=== PATIENT | female | born 1965 | race Caucasian/White ===

== ENCOUNTER 2017-02-04 16:04 | Inpatient (IN) | payer BC, OTHER ==
[~2017-02-04] VITALS: Ht 162.6 cm; Wt 85.1 kg
[~2017-02-04 16:04] MED LIST: ERRIN PO; PANT20TA2 PO
[2017-02-04] MEDS ORDERED: PIPER-TAZO 3.375 GM IV (PMX) 100 ML IVPB STA (17:39)
[2017-02-04] MEDS ORDERED: SODIUM CHLORIDE 0.9% 1L BAG IV* STA (17:39)
[2017-02-04] MEDS ORDERED: SOD CHLORIDE 0.9% 1,000 ML IV STA (17:39)
[2017-02-04] MEDS ORDERED: ONDANSETRON 4 MG INJ IV STA (17:39)
[2017-02-04] MEDS ORDERED: morphine 4 MG/ML VIAL IV STA (17:39)
[2017-02-04 18:35] LABS: WHITE BLOOD COUNT 22.9 10^3/ul (4.8-10.8)
[2017-02-04 18:36] LABS: ABNORMAL IP MESSAGE 1; HEMATOCRIT 30.4 % (37.0-47.0); HEMOGLOBIN 9.3 g/dl (12.0-16.0); MEAN CORPUSCULAR HEMOGLOBIN 22.7 pg (29.0-33.0); MEAN CORPUSCULAR HGB CONC 30.6 g/dl (32.0-37.0); MEAN CORPUSCULAR VOLUME 74.3 fl (82.0-101.0); MEAN PLATELET VOLUME 11.2 fl (7.4-10.4); PLATELET COUNT 358 10^3/UL (140-415); RED BLOOD COUNT 4.09 10^6/ul (4.20-5.40); RED CELL DISTRIBUTION WIDTH 16.4 % (11.5-14.5)
[2017-02-04 18:49] LABS: INR 1.41; PROTIME 17.3 Sec (12.2-14.2); PT RATIO 1.4
[2017-02-04 18:50] LABS: PARTIAL THROMBOPLASTIN TIME 29.9 Sec (25.0-35.0)
[2017-02-04 18:54] LABS: POSITIVE DIFF @See below
[2017-02-04 18:57] LABS: ALBUMIN 4.1 g/dl (3.3-4.9); ALBUMIN/GLOBULIN RATIO 1.17; BILIRUBIN,INDIRECT 0.5 mg/dl (0-1.1); BILIRUBIN,TOTAL 0.5 mg/dl (0.2-1.3); CALCIUM 8.5 mg/dl (8.4-10.2); CREATININE 2.38 mg/dl (0.44-1.00); TOTAL PROTEIN 7.6 g/dl (6.1-8.1)
[2017-02-04 18:59] LABS: POTASSIUM 2.9 mmol/L (3.5-5.1)
[2017-02-04] MEDS ORDERED: CYAN100 PO (19:00)
[2017-02-04] MEDS ORDERED: ASC500 PO (19:01)
[2017-02-04] MEDS ORDERED: ASCO500T25 PO (19:02)
[2017-02-04] MEDS ORDERED: CHOL400T10 PO (19:03)
[2017-02-04] MEDS ORDERED: CHOL100062 PO (19:04)
[2017-02-04] MEDS ORDERED: CHOL400C PO (19:05)
[2017-02-04] MEDS ORDERED: FAMO20TA18 PO (19:06)
[2017-02-04] MEDS ORDERED: FER325 PO (19:06)
[2017-02-04] MEDS ORDERED: AZEL137S9 NASAL (19:06)
[2017-02-04] MEDS ORDERED: LOSA25TA5 PO (19:08)
[2017-02-04] MEDS ORDERED: GUAI-227 PO (19:08)
[2017-02-04] MEDS ORDERED: HYDR50TA3 PO (19:08)
[2017-02-04] MEDS ORDERED: IBUP800T25 PO (19:09)
[2017-02-04] MEDS ORDERED: TYL500 PO (19:09)
--- NOTE | 2017-02-04 19:49 | RADRPT ---
PROCEDURE: CT abdomen and pelvis without contrast. CLINICAL INDICATION: Abdominal pain and fever status post hysterectomy TECHNIQUE: CT scan of the abdomen and pelvis without contrast was performed on a [employer] CT scanner utilizing axial imaging from the lung bases through the pubis symphysis. The patient was sc anned without intravenous contrast. Sagittal and coronal reformatted images were made. The CTDIvol is 18.07 mGy and the DLP is 1025.57 mGycm. One of the following 3 dose reduction techniques were used during this CT examination: 1) Automated exposure control 2) Adjustment of the mA +/- kV according to patient size or 3) Use of iterative reconstruction technique COMPARISON: None available FINDINGS: The lung bases are remarkable for mild subsegmental discoid atelectasis. The heart size is normal. No pericardial or pleural effusion is present. The visualized liver is of normal size and attenuation. No focal lesions are present. The patient is status post cholecystectomy changes. No evidence for intrahepatic or extrahepatic biliary ductal di latation is present. The visualized spleen is normal. The pancreas, bilateral adrenal glands, and bi lateral kidneys are normal. No evidence for hydroureteronephrosis is present. A small punctate 1-2 m m right mid pole calculus is present which is nonobstructive. The bilateral ureters are normal. The visualized bowel is nonobstructive. No evidence for diverticulosis, diverticulitis or appendicit is is present. In the anterior subcutaneous tissues of the infraumbilical region, a large air fluid collection is present with loss of the fatty tissue plane between the rectus abdominous musculature. This large air fluid collection measures 19 cm transverse by 4.6 cm AP by 6.9 cm in superior inferi or dimensions. This is concerning for an abscess, infected hematoma or seroma. Subcutaneous inflamma tion is present in the soft tissues with subcutaneous emphysematous changes and air bubbles with in the bilateral rectus abdominous musculature. The visualized aorta is normal without evidence for aneurysmal dilatation. Postsurgical changes are noted with in the pelvis compatible with status post hysterectomy changes. Mild amount of pelvic ascites and small amount of residual air is noted. A well distended urinary bl adder is present. No definite evidence for drainable peritoneal fluid collections are noted. The surrounding osseous structures are remarkable for mild degenerative changes of the imaged spine with severe degenerative endplate and disc desiccation and vacuum phenomenon at L5-S1.. IMPRESSION: 1. Large subcutaneous and rectus abdominous anterior fluid collection measuring 19 cm transverse by 4.6 cm AP by 6.9 cm in superior inferior dimensions. Differential to include abscess, infected sero ma or hematoma. 2. Status post surgical changes within the pelvis status post hysterectomy with mild residual fluid and pockets of air present. No pelvic drainable fluid collections are present. 3. Mild bibasilar subsegmental discoid atelectasis 4. Status post cholecystectomy changes 5. 1-2 mm nonobstructive right mid pole calculus 6. Degenerative changes of the imaged spine with severe changes at the L5-S1 level. A call report was made to Paco Ryan at 02/04/2017 7:47:46 PM following the completion of the exa mination by the undersigned. RPTAT: H D C .Kaylin Quinn MD, Date Time Electronically viewed and signed by .Kaylin Quinn MD, on 02/04/2017 19:48 .C/
[2017-02-04] MEDS ORDERED: HYDROmorphONE 2 MG/ML SYG IV STA (20:25)
[2017-02-04] MEDS ORDERED: VANCOMYCIN 1 GM (PMX) 250 ML IVPB SCH (20:30)
[2017-02-04] MEDS ORDERED: SOD CHLORIDE 0.9% 1,000 ML IV SCH (20:58)
[2017-02-04] MEDS ORDERED: NACL 0.9% 3 ML SYG IV SCH (21:00)
[2017-02-04 21:20] LABS: LYMPHOCYTES # 1.1 10^3/ul (0.8-2.9); MONOCYTE # 1.1 10^3/ul (0.3-0.9); MONOCYTES % (M) 5 % (0-11)
[2017-02-04] MEDS ORDERED: ACETAMINOPHEN 325 MG TAB PO PRN (21:30)
[2017-02-04] MEDS ORDERED: ONDANSETRON 4 MG INJ IV PRN (21:30)
[2017-02-04 21:51] VITALS: TEMP 101.4
[2017-02-04] MEDS: ACETAMINOPHEN 325 MG TAB PO PRN (21:52)
[2017-02-04] MEDS: FAMOTIDINE 20 MG INJ IV SCH (22:00)
[2017-02-04 22:23] VITALS: BP 98/53; RESP 20
--- NOTE | 2017-02-04 22:31 | ERD ---
ER Documentation Chief Complaint Chief Complaint s/p hysterectomy,pain uncontrolled, sts dehydrted, diarrhea, fever in trg HPI This 51-year-old female presents emergency room with increasing anterior abdominal pain. She had a hysterectomy done last Tuesday at [facility]. Today she started having increased pain and fevers. She had elected not to take narcotic pain medication home from the hospital and the pain was not responding to analgesic pain medication that she did have at home. She has been febrile as well. Did have some diarrhea and believe she is dehydrated. ROS All systems reviewed and are negative except as per history of present illness. Medications Home Meds Reported Medications Ibuprofen* (Ibuprofen*) 800 Mg Tab, 800 MG PO Q8H Y for PAIN, TAB 02/04/17 Acetaminophen* (Tylenol*) 500 Mg Tab, 1000 MG PO Q6H Y for NEEDED, TAB 02/04/17 Losartan Potassium* (Losartan Potassium*) 25 Mg Tablet, 25 MG PO BID, TAB 02/04/17 Hydrochlorothiazide* (Hydrochlorothiazide*) 50 Mg Tab, 50 MG PO DAILY, #30 TAB 02/04/17 Guaifenesin-Dextromethorphan* (Robafen* DM) 100MG/10MG/5ML Liquid, 10 ML PO DAILY Y for COUGH, ML 02/04/17 Ferrous Sulfate* (Ferrous Sulfate*) 325 Mg Tabec, 325 MG PO BID, TAB 02/04/17 Famotidine* (Famotidine*) 20 Mg Tablet, 20 MG PO BID, #60 TAB 02/04/17 Azelastine Hcl* (Azelastine Hcl*) 137 Mcg/0.137 Ml [place].pump, 2 SPRAYS NASAL BID, #1 EA TO EACH NOSTRIL 02/04/17 Ergocalciferol (Vitamin D) Unknown Strength Capsule, PO DAILY, CAP 02/04/17 Ascorbate Calcium (Calcium Ascorbate) 500 Mg Tablet, 500 MG PO DAILY, TAB 02/04/17 Cyanocobalamin* (Vitamin B12*) Unknown Strength Tab, PO DAILY, TAB 02/04/17 Discontinued Reported Medications Cholecalciferol* (Vitamin D3*) 1,000 Unit Tablet, 1000 UNIT PO DAILY, TAB 02/04/17 Cholecalciferol* (Vitamin D*) Unknown Strength Tablet, PO DAILY, TAB 02/04/17 Ascorbic Acid (Vitamin C) Unknown Strength Tab, 1 TAB PO DAILY, TAB 02/04/17 [Debbie] No Conflict Check, 0.35 MG PO DAILY 11/30/13 Pantoprazole* (Protonix*) 20 Mg Tablet.dr, 20 MG PO DAILY, TAB 11/30/13 Allergies Allergies: Coded Allergies: oxycodone (Verified Allergy, Unknown, 02/04/17) PMhx/Soc History of Surgery: Yes (CHOLECYSTECTOMY) Anesthesia Reaction: No Hx Neurological Disorder: No Hx Respiratory Disorders: No Hx Cardiac Disorders: Yes (HTN) Hx Psychiatric Problems: No Hx Miscellaneous Medical Probl: No Hx Alcohol Use: Yes (OCCASIONAL WINE) Hx Substance Use: No Hx Tobacco Use: Yes Smoking Status: Never smoker Physical Exam Vitals Vital Signs Date Time Temp Pulse Resp B/P Pulse Ox O2 Delivery O2 Flow Rate FiO2 02/04/17 21:00 98 20 92/53 98 Room Air 02/04/17 20:00 96 22 107/63 100 Room Air 02/04/17 18:00 99.4 114 24 100/64 99 Room Air 02/04/17 16:09 102.5 126 20 106/60 100 Physical Exam Const: [] Head: Atraumatic Eyes: Normal Conjunctiva ENT: Normal External Ears, Nose and Mouth. Neck: Full range of motion..~ No meningismus. Resp: Clear to auscultation bilaterally Cardio: Regular rate and rhythm, no murmurs Abd: Soft, non tender, non distended. Normal bowel sounds Skin: No petechiae or rashes Back: No midline or flank tenderness Ext: No cyanosis, or edema Neur: Awake and alert Psych: Normal Mood and Affect Result Diagram: 02/04/17 1800 02/04/17 1800 Results 24 hrs Laboratory Tests Test 02/04/17 18:00 02/04/17 18:05 02/04/17 20:50 White Blood Count 22.910^3/ul Red Blood Count 4.0910^6/ul Hemoglobin 9.3g/dl Hematocrit 30.4% Mean Corpuscular Volume 74.3fl Mean Corpuscular Hemoglobin 22.7pg Mean Corpuscular Hemoglobin Concent 30.6g/dl Red Cell Distribution Width 16.4% Platelet Count 81858^3/UL Mean Platelet Volume 11.2fl Segmented Neutrophils % (Manual) 82% Band Neutrophils % (Manual) 8% Lymphocytes % (Manual) 5% Monocytes % (Manual) 5% Nucleated Red Blood Cells % 0.0/100WBC Neutrophils # (Manual) 19.210^3/ul Band Neutrophils # 1.810^3/ul Absolute Lymphocytes (Manual) 1.110^3/ul Lymphocytes # 1.110^3/ul Monocytes # 1.110^3/ul Absolute Monocytes (Manual) 1.110^3/ul Prothrombin Time 17.3Sec Prothrombin Time Ratio 1.4 INR International Normalized Ratio 1.41 Activated Partial Thromboplast Time 29.9Sec Sodium Level 132mmol/L Potassium Level 2.9mmol/L Chloride Level 91mmol/L Carbon Dioxide Level 21mmol/L Anion Gap 23 Blood Urea Nitrogen 35mg/dl Creatinine 2.38mg/dl Glucose Level 97mg/dl Calcium Level 8.5mg/dl Total Bilirubin 0.5mg/dl Direct Bilirubin 0.00mg/dl Indirect Bilirubin 0.5mg/dl Aspartate Amino Transf (AST/SGOT) 26IU/L Alanine Aminotransferase (ALT/SGPT) 29IU/L Alkaline Phosphatase 184IU/L Total Protein 7.6g/dl Albumin 4.1g/dl Globulin 3.50g/dl Albumin/Globulin Ratio 1.17 Lipase 45U/L Lactic Acid Level 2.0mmol/L 1.0mmol/L Current Medications Medications (Trade) Dose Ordered Sig/Naresh Route PRN Reason Start Time Stop Time Status Last Admin Dose Admin Sodium Chloride (NS) 1,000 ml @ 1,000 mls/hr Q1H STAT IV 02/04/17 17:39 02/04/17 18:38 DC 02/04/17 17:40 Morphine Sulfate (morphine) 4 mg ONCE STAT IV 02/04/17 17:39 02/04/17 17:43 DC 02/04/17 17:43 Ondansetron HCl (Zofran Inj) 4 mg ONCE STAT IV 02/04/17 17:39 02/04/17 17:43 DC 02/04/17 17:41 Sodium Chloride 2530 ml 2,530 ml BOLUS OVER 2 HOURS STAT IV* 02/04/17 17:39 02/04/17 17:43 DC 02/04/17 17:39 Piperacillin Sod/ Tazobactam Sod 100 ml @ 200 mls/hr ONCE STAT IVPB 02/04/17 17:39 02/04/17 18:08 DC 02/04/17 18:00 Vancomycin HCl (Vancocin) 250 ml @ 125 mls/hr ONCE IVPB 02/04/17 20:30 02/04/17 22:29 02/04/17 21:05 Hydromorphone HCl 1 mg 1 mg ONCE STAT IV 02/04/17 20:25 02/04/17 20:29 DC 02/04/17 20:45 Sodium Chloride (NS) 1,000 ml @ 100 mls/hr Q10H IV 02/04/17 20:58 02/04/17 20:58 IV Flush (NS 3 ml) 3 ml PER PROTOCOL IV 02/04/17 21:00 Ondansetron HCl (Zofran Inj) 4 mg Q6H PRN IV NAUSEA AND/OR VOMITING 02/04/17 21:00 Acetaminophen (Tylenol Tab) 650 mg Q6H PRN PO PAIN LEVEL 1-3 OR FEVER 02/04/17 21:00 02/04/17 21:52 Morphine Sulfate (morphine) 2 mg Q4H PRN IV SEVERE PAIN LEVEL 7-10 02/04/17 21:00 Procedures/MDM Sepsis secondary to intra-abdominal postop infection and abscess. Patient was given vancomycin and Zosyn. She was given 30 cc/kg of IV fluid. She was given morphine after she felt a little bit better with the pain. Also given Zofran IV. She was then given 1 mg of Dilaudid which helped almost resolved her pain. Vital signs did improve with fluid administration and pain control. Patient does have dehydration with renal insufficiency. I spoke with Dr. Salazar, general surgeon, believes that the best course of action would be to have the abscess drained by interventional radiology. I also spoke with labor wrist on- call, Dr. Fuentes, who is going to see the patient as well. Patient is being admitted to Dr. Tessa Burk, who I did speak with about the surgical plan for IR drainage. EKG interpretation: Sinus tachycardia with no ST or T-wave changes concerning for acute ischemia. social service coordinator interpretation: Sinus tachycardia eventually transition to normal sinus rhythm. No other arrhythmias CT abdomen pelvis interpretation: Large 19 x 6 x 4 intra-abdominal fluid collection along the rectus sheath and anterior abdominal wall. Normal postop changes of hysterectomy, no bowel obstruction, no fractures. Local care time greater than 35 minutes: This includes treatment of sepsis due to postop infection, stable vital signs, careful fluid administration, early antibiotic administration, discussion with general surgeon and gynecological surgeon, review of chart, discussion with patient. This does not include any billable procedures. Departure Diagnosis: Primary Impression: Postoperative wound infection Additional Impressions: Intra-abdominal abscess Sepsis Renal failure Dehydration Condition: Serious CHANDLER CHANDLER DO Feb 04, 2017 22:31
[2017-02-04] MEDS: morphine 2 MG INJ IV PRN (22:48)
--- NOTE | 2017-02-04 22:55 | CONS ---
Date/Time of Note Date/Time of Note DATE: 02/04/17 TIME: 22:48 Assessment/Plan Assessment/Plan Chief Complaint/Hosp Course 51 y/o POD10 s/p DILLON now with 19 cm anterior abdominal wall fluid collection/ abscess -continue antibiotics -plan for IR drainage -will continue to co-follow Problems: Consultation Date/Type/Reason Admit Date/Time Feb 04, 2017 at 21:02 Date of Consultation: Feb 04, 2017 Reason for Consultation s/p DILLON Hx of Present Illness 51 y/o POD 10 s/p DILLON by Dr. Wilson and Alden Fan who presents with malaise and chills. Patient did not take her temperature at home. She was discharged home on POD3 and reports feeling worse over the last week. Reports sharp pain in superficial abdomen. Denies any incisional erythema or drainage. Per HPI. Other systems negative. Past Medical History Medical History: hypertension Past Surgical History Past Surgical Hx: cholecystectomy Family History Significant Family History: no pertinent family hx Social History Alcohol Use: none Smoking Status: Never smoker Drug Use: none Exam/Review of Systems Vital Signs Vitals Vital Signs Date Time Temp Pulse Resp B/P Pulse Ox O2 Delivery O2 Flow Rate FiO2 02/04/17 22:23 100.5 99 20 98/53 96 02/04/17 21:30 Room Air Exam Gen: NAD HEENT: NCAT CV: RRR Pulm: CTAB Abd: soft, NT I-C/D/I Back: no CVAT Ext: NT Results Result Diagram: 02/04/17 1800 02/04/17 1800 Results 24 hrs Laboratory Tests Test 02/04/17 18:00 02/04/17 18:05 02/04/17 20:50 White Blood Count 22.9 H Red Blood Count 4.09 L Hemoglobin 9.3 L Hematocrit 30.4 L Mean Corpuscular Volume 74.3 L Mean Corpuscular Hemoglobin 22.7 L Mean Corpuscular Hemoglobin Concent 30.6 L Red Cell Distribution Width 16.4 H Platelet Count 358 Mean Platelet Volume 11.2 H Segmented Neutrophils % (Manual) 82 H Band Neutrophils % (Manual) 8 H Lymphocytes % (Manual) 5 L Monocytes % (Manual) 5 Nucleated Red Blood Cells % 0.0 Neutrophils # (Manual) 19.2 H Band Neutrophils # 1.8 H Absolute Lymphocytes (Manual) 1.1 Lymphocytes # 1.1 Monocytes # 1.1 H Absolute Monocytes (Manual) 1.1 H Prothrombin Time 17.3 H Prothrombin Time Ratio 1.4 INR International Normalized Ratio 1.41 Activated Partial Thromboplast Time 29.9 Sodium Level 132 L Potassium Level 2.9 *L Chloride Level 91 L Carbon Dioxide Level 21 Anion Gap 23 H Blood Urea Nitrogen 35 H Creatinine 2.38 H Glucose Level 97 Calcium Level 8.5 Total Bilirubin 0.5 Direct Bilirubin 0.00 Indirect Bilirubin 0.5 Aspartate Amino Transf (AST/SGOT) 26 Alanine Aminotransferase (ALT/SGPT) 29 Alkaline Phosphatase 184 H Total Protein 7.6 Albumin 4.1 Globulin 3.50 H Albumin/Globulin Ratio 1.17 Lipase 45 Lactic Acid Level 2.0 1.0 Medications Medications Current Medications Sodium Chloride (NS) 1,000 ml @ 100 mls/hr Q10H IV Last administered on 20:58; Admin Dose 100 MLS/HR; Start 02/04/17 at 20:58 Ondansetron HCl (Zofran Inj) 4 mg Q6H PRN IV NAUSEA AND/OR VOMITING; Start at 21:00 Acetaminophen (Tylenol Tab) 650 mg Q6H PRN PO PAIN LEVEL 1-3 OR FEVER Last administered on 02/04/17 21:52; Admin Dose 650 MG; Start 02/04/17 at 21:00 Morphine Sulfate (morphine) 2 mg Q4H PRN IV SEVERE PAIN LEVEL 7-10; Start at 21:00 Famotidine (Pepcid Iv) 20 mg DAILY IV Last administered on 02/04/17 22:00; Admin Dose 20 MG; Start 02/04/17 at 21:30 Enoxaparin Sodium 30 mg 30 mg DAILY SC ; Start 02/05/17 at 09:00 Piperacillin Sod/ Tazobactam Sod (Zosyn 3.375gm/ 100 ml (Pmx)) 100 ml @ 200 mls /hr Q6 IVPB ; Start 02/05/17 at 00:00 VJ OLSON Feb 04, 2017 22:55
[2017-02-04 22:57] VITALS: Ht 162.6 cm; Wt 85.1 kg
[2017-02-04 23:10] LABS: ADD UMIC YES; UR ASCORBIC ACID NEGATIVE (NEGATIVE); UR BILIRUBIN (Dip) NEGATIVE (NEGATIVE); UR BLOOD (Dip) 1+ mg/dL (NEGATIVE); UR CLARITY CLEAR (CLEAR); UR COLOR YELLOW (YELLOW); UR GLUCOSE (Dip) 3+ mg/dL (NEGATIVE); UR KETONES (Dip) NEGATIVE (NEGATIVE); UR LEUKOCYTE ESTERASE (Dip) NEGATIVE Leu/ul (NEGATIVE); UR NITRITE (Dip) NEGATIVE (NEGATIVE); UR RBC 1 /HPF (0-5); UR TOTAL PROTEIN (Dip) NEGATIVE (NEGATIVE); UR UROBILINOGEN (Dip) NEGATIVE (NEGATIVE)
[2017-02-04] MEDS: PIPER-TAZO 3.375 GM IV (PMX) 100 ML IVPB SCH (23:49)
[2017-02-05] VITALS (53 sets, daily range): BP systolic 68–116; BP diastolic 42–86; PULSE 68–98; RESP 14–26
[2017-02-05] MEDS ORDERED: SOD CHLORIDE 0.9% 1,000 ML IV ONE ×2 (05:00→10:00)
[2017-02-05 05:13] LABS: BASOPHIL # 0.1 10^3/ul (0.0-0.1); BASOPHILS % 0.3 % (0.0-2.0); EOSINOPHILS % 0.1 % (0.0-7.0); HEMATOCRIT 25.5 % (37.0-47.0); HEMOGLOBIN 7.7 g/dl (12.0-16.0); LYMPHOCYTES # 0.8 10^3/ul (0.8-2.9); LYMPHOCYTES % 4.1 % (15.0-51.0); MEAN CORPUSCULAR HEMOGLOBIN 23.3 pg (29.0-33.0); MEAN CORPUSCULAR HGB CONC 30.2 g/dl (32.0-37.0); MEAN PLATELET VOLUME 11.2 fl (7.4-10.4); MONOCYTE # 1.4 10^3/ul (0.3-0.9); MONOCYTES % 6.6 % (0.0-11.0); NEUTROPHILS % 87.4 % (39.0-77.0); PLATELET COUNT 278 10^3/UL (140-415); RED BLOOD COUNT 3.31 10^6/ul (4.20-5.40); RED CELL DISTRIBUTION WIDTH 16.5 % (11.5-14.5); WHITE BLOOD COUNT 20.6 10^3/ul (4.8-10.8)
[2017-02-05 05:32] LABS: POSITIVE DIFF @See below
[2017-02-05 05:51] LABS: ALBUMIN 2.4 g/dl (3.3-4.9); ALBUMIN/GLOBULIN RATIO 0.72; BILIRUBIN,INDIRECT 0.3 mg/dl (0-1.1); BILIRUBIN,TOTAL 0.3 mg/dl (0.2-1.3); CALCIUM 7.2 mg/dl (8.4-10.2); CREATININE 1.8 mg/dl (0.44-1.00); TOTAL PROTEIN 5.7 g/dl (6.1-8.1)
[2017-02-05] MEDS: PIPER-TAZO 3.375 GM IV (PMX) 100 ML IVPB SCH ×4 (05:58→23:06)
[2017-02-05 06:03] LABS: POTASSIUM 2.7 mmol/L (3.5-5.1)
[2017-02-05] MEDS ORDERED: morphine 4 MG/ML VIAL IV STA (08:05)
--- NOTE | 2017-02-05 08:22 | CONS ---
Date/Time of Note Date/Time of Note DATE: 02/05/17 TIME: 08:19 Assessment/Plan Assessment/Plan Additional Assessment/Plan Hospital day 1 for wound infection status post abdominal hysterectomy Cultures Antibiotics The daily dressing changes daily Consultation Date/Type/Reason Admit Date/Time Feb 04, 2017 at 21:02 Date of Consultation: Feb 05, 2017 Hx of Present Illness The patient is a 31-year-old female who underwent a total abdominal hysterectomy Via Pfannenstiel incision approximately 2 weeks ago. She was hospitalized 4 days at [facility]. Upon discharge, she started having increasing abdominal pain, hypotension and fevers. She finally presented to the ER last night where there was a large fluid collection noted in her abdomen. Overnight, she began draining purulent fluid through her incision. Past Medical History Medical History: hypertension Past Surgical History Past Surgical Hx: cholecystectomy, other (Total abdominal hysterectomy for fibroids) Family History Significant Family History: no pertinent family hx Social History Alcohol Use: none Smoking Status: Never smoker Drug Use: none Exam/Review of Systems Vital Signs Vitals Vital Signs Date Time Temp Pulse Resp B/P Pulse Ox O2 Delivery O2 Flow Rate FiO2 02/05/17 08:14 98.0 79 18 90/55 93 02/05/17 02:48 Nasal Cannula 2.0 Intake and Output 02/04/17 02/04/17 02/05/17 15:00 23:00 07:00 Intake Total 100 ml 2350 ml Balance 100 ml 2350 ml Exam Constitutional: alert, well developed ENMT: nl external ears & nose Neck: supple Respiratory: clear to auscultation Cardiovascular: regular rate and rhythm Gastrointestinal: soft Extremities: normal pulses Neurological: MORNING SHOW [employer] II-XII intact Skin: nl turgor (Wound, the left lateral aspect of the Pfannenstiel incision is draining purulent fluid, this was further opened by me and packed with Kerlix gauze) Results Result Diagram: 02/05/17 0447 02/05/17 0447 Results 24 hrs Laboratory Tests Test 02/04/17 18:00 02/04/17 18:05 02/04/17 20:50 02/04/17 22:50 White Blood Count 22.9 H Red Blood Count 4.09 L Hemoglobin 9.3 L Hematocrit 30.4 L Mean Corpuscular Volume 74.3 L Mean Corpuscular Hemoglobin 22.7 L Mean Corpuscular Hemoglobin Concent 30.6 L Red Cell Distribution Width 16.4 H Platelet Count 358 Mean Platelet Volume 11.2 H Segmented Neutrophils % (Manual) 82 H Band Neutrophils % (Manual) 8 H Lymphocytes % (Manual) 5 L Monocytes % (Manual) 5 Nucleated Red Blood Cells % 0.0 Neutrophils # (Manual) 19.2 H Band Neutrophils # 1.8 H Absolute Lymphocytes (Manual) 1.1 Lymphocytes # 1.1 Monocytes # 1.1 H Absolute Monocytes (Manual) 1.1 H Prothrombin Time 17.3 H Prothrombin Time Ratio 1.4 INR International Normalized Ratio 1.41 Activated Partial Thromboplast Time 29.9 Sodium Level 132 L Potassium Level 2.9 *L Chloride Level 91 L Carbon Dioxide Level 21 Anion Gap 23 H Blood Urea Nitrogen 35 H Creatinine 2.38 H Glucose Level 97 Calcium Level 8.5 Total Bilirubin 0.5 Direct Bilirubin 0.00 Indirect Bilirubin 0.5 Aspartate Amino Transf (AST/SGOT) 26 Alanine Aminotransferase (ALT/SGPT) 29 Alkaline Phosphatase 184 H Total Protein 7.6 Albumin 4.1 Globulin 3.50 H Albumin/Globulin Ratio 1.17 Lipase 45 Lactic Acid Level 2.0 1.0 Urine Color YELLOW Urine Clarity CLEAR Urine pH 6.0 Urine Specific [place]andon 1.020 Urine Ketones NEGATIVE Urine Nitrite NEGATIVE Urine Bilirubin NEGATIVE Urine Urobilinogen NEGATIVE Urine Leukocyte Esterase NEGATIVE Urine Microscopic RBC 1 Urine Microscopic WBC 1 Urine Hemoglobin 1+ H Urine Glucose 3+ H Urine Total Protein NEGATIVE Test 02/04/17 23:57 02/05/17 04:47 Lactic Acid Level 1.0 White Blood Count 20.6 H Red Blood Count 3.31 L Hemoglobin 7.7 L Hematocrit 25.5 L Mean Corpuscular Volume 77.0 L Mean Corpuscular Hemoglobin 23.3 L Mean Corpuscular Hemoglobin Concent 30.2 L Red Cell Distribution Width 16.5 H Platelet Count 278 # Mean Platelet Volume 11.2 H Neutrophils % 87.4 H Lymphocytes % 4.1 L Monocytes % 6.6 Eosinophils % 0.1 Basophils % 0.3 Nucleated Red Blood Cells % 0.0 Neutrophils # 18.0 H Lymphocytes # 0.8 Monocytes # 1.4 H Eosinophils # 0.0 Basophils # 0.1 Nucleated Red Blood Cells # 0.0 Sodium Level 135 Potassium Level 2.7 *L Chloride Level 104 # Carbon Dioxide Level 20 L Anion Gap 14 # Blood Urea Nitrogen 32 H Creatinine 1.80 H Glucose Level 84 Calcium Level 7.2 L Total Bilirubin 0.3 Direct Bilirubin 0.00 Indirect Bilirubin 0.3 Aspartate Amino Transf (AST/SGOT) 20 Alanine Aminotransferase (ALT/SGPT) 34 Alkaline Phosphatase 126 H Total Protein 5.7 #L Albumin 2.4 #L Globulin 3.30 H Albumin/Globulin Ratio 0.72 Medications Medications Current Medications Sodium Chloride (NS) 1,000 ml @ 100 mls/hr Q10H IV Last administered on 20:58; Admin Dose 100 MLS/HR; Start 02/04/17 at 20:58 Ondansetron HCl (Zofran Inj) 4 mg Q6H PRN IV NAUSEA AND/OR VOMITING; Start at 21:00 Acetaminophen (Tylenol Tab) 650 mg Q6H PRN PO PAIN LEVEL 1-3 OR FEVER Last administered on 02/04/17 21:52; Admin Dose 650 MG; Start 02/04/17 at 21:00 Morphine Sulfate (morphine) 2 mg Q4H PRN IV SEVERE PAIN LEVEL 7-10 Last administered on 02/04/17 22:48; Admin Dose 2 MG; Start 02/04/17 at 21:00 Famotidine (Pepcid Iv) 20 mg DAILY IV Last administered on 02/04/17 22:00; Admin Dose 20 MG; Start 02/04/17 at 21:30 Enoxaparin Sodium 30 mg 30 mg DAILY SC ; Start 02/05/17 at 09:00 Piperacillin Sod/ Tazobactam Sod (Zosyn 3.375gm/ 100 ml (Pmx)) 100 ml @ 200 mls /hr Q6 IVPB Last administered on 02/05/17 05:58; Admin Dose 200 MLS/HR; Start 02/05/17 at 00:00 JOVANNA PETERS MD Feb 05, 2017 08:22
[2017-02-05] MEDS: SODIUM CHLORIDE IV SCH ×4 (08:41→18:22)
[2017-02-05] MEDS: POTASSIUM CHLORIDE IV SCH ×4 (08:41→18:22)
[2017-02-05] MEDS: FAMOTIDINE 20 MG INJ IV SCH (08:48)
[2017-02-05] MEDS: ENOXAPARIN 30 MG/0.3 ML SYG SC SCH (09:01)
[2017-02-05] MEDS: morphine 2 MG INJ IV PRN ×3 (10:40→22:25)
--- NOTE | 2017-02-05 10:47 | HP ---
Date/Time of Note Date/Time of Note DATE: 02/05/17 TIME: 10:45 Assessment/Plan VTE Prophylaxis VTE Prophylaxis Intervention: other Lines/Catheters IV Catheter Type (from Nrs): Saline Lock Assessment/Plan Chief Complaint/Hosp Course 1) peritonitis - IV antibiotics - I&D per surgery - monitor clinically 2) hypertension - blood pressure is low currently Problems: HPI/ROS Admit Date/Time Admit Date/Time Feb 04, 2017 at 21:02 Hx of Present Illness Patient with hypertension comes in after recent hysterectomy with abdominal pain related to postoperative infection. Patient was hypotensive and required drainage per surgery of the wound. PMH/Family/Social Past Medical History Medical History: hypertension Past Surgical History Past Surgical Hx: cholecystectomy, other (Total abdominal hysterectomy for fibroids) Social History Alcohol Use: none Smoking Status: Never smoker Drug Use: none Exam/Review of Systems Vital Signs Vitals Vital Signs Date Time Temp Pulse Resp B/P Pulse Ox O2 Delivery O2 Flow Rate FiO2 02/05/17 08:30 98.0 88 18 106/61 02/05/17 08:14 93 02/05/17 02:48 Nasal Cannula 2.0 Intake and Output 02/04/17 02/04/17 02/05/17 15:00 23:00 07:00 Intake Total 100 ml 2350 ml Balance 100 ml 2350 ml Exam Constitutional: well developed Head: atraumatic, normocephalic Neck: supple Respiratory: clear to auscultation Cardiovascular: regular rate and rhythm Gastrointestinal: soft, tender Extremities: normal pulses Labs Result Diagram: 02/05/177 02/05/17446 Medications Medications Current Medications Ondansetron HCl (Zofran Inj) 4 mg Q6H PRN IV NAUSEA AND/OR VOMITING; Start at 21:00 Acetaminophen (Tylenol Tab) 650 mg Q6H PRN PO PAIN LEVEL 1-3 OR FEVER Last administered on 02/04/17 21:52; Admin Dose 650 MG; Start 02/04/17 at 21:00 Morphine Sulfate (morphine) 2 mg Q4H PRN IV SEVERE PAIN LEVEL 7-10 Last administered on 02/05/17 10:40; Admin Dose 2 MG; Start 02/04/17 at 21:00 Famotidine (Pepcid Iv) 20 mg DAILY IV Last administered on 02/05/17 08:48; Admin Dose 20 MG; Start 02/04/17 at 21:30 Enoxaparin Sodium 30 mg 30 mg DAILY SC Last administered on 02/05/17 09:01; Admin Dose 30 MG; Start 02/05/17 at 09:00 Piperacillin Sod/ Tazobactam Sod 100 ml @ 200 mls/hr Q6 IVPB Last administered on 02/05/17 05:58; Admin Dose 200 MLS/HR; Start 02/05/17 at 00: 00 Potassium Chloride 40 meq/ Sodium Chloride 1,020 ml @ 100 mls/hr [id number] IV Last administered on 02/05/17 08:41; Admin Dose 100 MLS/HR; Start 02/05/17 at 08:30 Sodium Chloride (NS) 1,000 ml @ 1,000 mls/hr Q1H ONCE IV ; Start 02/05/17 at 10:00; Stop 02/05/17 at 10:59 ELIAZAR LAU Feb 05, 2017 10:47
[2017-02-05 14:23] LABS: HEMATOCRIT 25.4 % (37.0-47.0); HEMOGLOBIN 7.8 g/dl (12.0-16.0)
[2017-02-05] MEDS ORDERED: DOBUTamine/D5W 1 MG/ML DRIP 250 ML IV SCH (16:00)
[2017-02-05] MEDS ORDERED: POTASSIUM CHLORIDE 250 ML IVPB ONE (17:00)
--- NOTE | 2017-02-05 19:26 | CONS ---
Date/Time of Note Date/Time of Note DATE: 02/05/17 TIME: 19:24 Assessment/Plan Assessment/Plan Additional Assessment/Plan HD#2 for 51yo 2wks s/p DILLON with 19cm anterior wall fluid collection c/w abscess s/p spontaneous drainage and suction -WBC trending downwards and pt afebrile -Anemia noted yet stable. Possibly dilutional effect given plts also have trended downwards. Will defer to primary team regarding transfusion needs -Continue IV abx and wound changes per primary team -ENROLLMENT MANAGER to continue to follow Consultation Date/Type/Reason Admit Date/Time Feb 04, 2017 at 21:02 Initial Consult Date 02/05/17 Type of Consultation: Gynecology 24 HR Interval Summary Free Text/Dictation Pt states pain and pressure have improved somewhat s/p leakage of fluid collection although also still c/o stabbing pain in RLQ which is the same pain which brought pt in to ED yesterday. Denies dizziness or palpitations. +Flatus. Voiding w/o difficulty. Exam/Review of Systems Vital Signs Vitals Vital Signs Date Time Temp Pulse Resp B/P Pulse Ox O2 Delivery O2 Flow Rate FiO2 02/05/17 16:45 92 18 109/57 94 Nasal Cannula 2.0 02/05/17 16:30 98.1 Intake and Output 02/04/17 02/04/17 02/05/17 15:00 23:00 07:00 Intake Total 100 ml 2350 ml Balance 100 ml 2350 ml Exam Gen: sitting up in bed comfortably, although pretty still CV: RRR, nl s1s2 Resp: CTAB Abd: soft, obese, NABS Inc: covered w/dressing. no leakage noted Ext: SCDs in place b/l WBC 22.9 (02/04) -> 20.9 (02/05) Hgb 9.3 (02/04) -> 7.7 (02/05 at 0447)-> 7.8 (02/05 at 1355) Plts 358 (02/04) -> 278 (02/05) Results Result Diagram: 02/05/17 1355 02/05/17 1355 Results 24 hrs Laboratory Tests Test 02/04/17 20:50 02/04/17 22:50 02/04/17 23:57 02/05/17 04:47 Lactic Acid Level 1.0 1.0 Urine Color YELLOW Urine Clarity CLEAR Urine pH 6.0 Urine Specific [place] 1.020 Urine Ketones NEGATIVE Urine Nitrite NEGATIVE Urine Bilirubin NEGATIVE Urine Urobilinogen NEGATIVE Urine Leukocyte Esterase NEGATIVE Urine Microscopic RBC 1 Urine Microscopic WBC 1 Urine Hemoglobin 1+ H Urine Glucose 3+ H Urine Total Protein NEGATIVE White Blood Count 20.6 H Red Blood Count 3.31 L Hemoglobin 7.7 L Hematocrit 25.5 L Mean Corpuscular Volume 77.0 L Mean Corpuscular Hemoglobin 23.3 L Mean Corpuscular Hemoglobin Concent 30.2 L Red Cell Distribution Width 16.5 H Platelet Count 278 # Mean Platelet Volume 11.2 H Neutrophils % 87.4 H Lymphocytes % 4.1 L Monocytes % 6.6 Eosinophils % 0.1 Basophils % 0.3 Nucleated Red Blood Cells % 0.0 Neutrophils # 18.0 H Lymphocytes # 0.8 Monocytes # 1.4 H Eosinophils # 0.0 Basophils # 0.1 Nucleated Red Blood Cells # 0.0 Sodium Level 135 Potassium Level 2.7 *L Chloride Level 104 # Carbon Dioxide Level 20 L Anion Gap 14 # Blood Urea Nitrogen 32 H Creatinine 1.80 H Glucose Level 84 Calcium Level 7.2 L Total Bilirubin 0.3 Direct Bilirubin 0.00 Indirect Bilirubin 0.3 Aspartate Amino Transf (AST/SGOT) 20 Alanine Aminotransferase (ALT/SGPT) 34 Alkaline Phosphatase 126 H Total Protein 5.7 #L Albumin 2.4 #L Globulin 3.30 H Albumin/Globulin Ratio 0.72 Test 02/05/17 13:55 Hemoglobin 7.8 L Hematocrit 25.4 L Potassium Level 3.1 L Medications Medications Current Medications Ondansetron HCl (Zofran Inj) 4 mg Q6H PRN IV NAUSEA AND/OR VOMITING; Start at 21:00 Acetaminophen (Tylenol Tab) 650 mg Q6H PRN PO PAIN LEVEL 1-3 OR FEVER Last administered on 02/04/17 21:52; Admin Dose 650 MG; Start 02/04/17 at 21:00 Morphine Sulfate (morphine) 2 mg Q4H PRN IV SEVERE PAIN LEVEL 7-10 Last administered on 02/05/17 15:11; Admin Dose 2 MG; Start 02/04/17 at 21:00 Famotidine (Pepcid Iv) 20 mg DAILY IV Last administered on 02/05/17 08:48; Admin Dose 20 MG; Start 02/04/17 at 21:30 Enoxaparin Sodium 30 mg 30 mg DAILY SC Last administered on 02/05/17 09:01; Admin Dose 30 MG; Start 02/05/17 at 09:00 Piperacillin Sod/ Tazobactam Sod 100 ml @ 200 mls/hr Q6 IVPB Last administered on 02/05/17 18:22; Admin Dose 200 MLS/HR; Start 02/05/17 at 00: 00 Potassium Chloride 40 meq/ Sodium Chloride 1,020 ml @ 100 mls/hr [id number] IV Last administered on 02/05/17 08:41; Admin Dose 100 MLS/HR; Start 02/05/17 at 08:30 Dobutamine HCl/ Dextrose 250 ml @ 12.765 mls/ hr TITRATE IV Last administered on 02/05/17 16:22; Admin Dose 12.765 MLS/HR; Start 02/05/17 at 16:00 Potassium Chloride (KCl 40 MEQ/250 ML NS) 250 ml @ 62.5 mls/hr ONCE ONCE IVPB Last administered on 02/05/17 18:22; Admin Dose 62.5 MLS/HR; Start at 17:00; Stop 02/05/17 at 20:59 EDUARDO BHATIA MD Feb 05, 2017 19:26
[2017-02-05] MEDS: ONDANSETRON 4 MG INJ IV PRN (23:05)
[2017-02-06] VITALS (36 sets, daily range): BP systolic 82–133; BP diastolic 50–77; PULSE 69–91; RESP 12–23
[2017-02-06] MEDS: PIPER-TAZO 3.375 GM IV (PMX) 100 ML IVPB SCH ×3 (05:34→17:54)
[2017-02-06] MEDS: ONDANSETRON 4 MG INJ IV PRN ×2 (05:34→14:21)
[2017-02-06] MEDS: POTASSIUM CHLORIDE IV SCH ×4 (05:34→19:34)
[2017-02-06] MEDS: SODIUM CHLORIDE IV SCH ×4 (05:34→19:34)
[2017-02-06] MEDS: morphine 2 MG INJ IV PRN ×3 (05:35→21:46)
[2017-02-06 08:12] LABS: ABNORMAL IP MESSAGE 1; BASOPHIL # 0.1 10^3/ul (0.0-0.1); BASOPHILS % 0.5 % (0.0-2.0); EOSINOPHILS # 0.1 10^3/ul (0.0-0.5); EOSINOPHILS % 0.8 % (0.0-7.0); HEMOGLOBIN 7.3 g/dl (12.0-16.0); LYMPHOCYTES # 1.4 10^3/ul (0.8-2.9); LYMPHOCYTES % 8.9 % (15.0-51.0); MEAN CORPUSCULAR HEMOGLOBIN 23.2 pg (29.0-33.0); MEAN CORPUSCULAR HGB CONC 30.4 g/dl (32.0-37.0); MEAN CORPUSCULAR VOLUME 76.4 fl (82.0-101.0); MEAN PLATELET VOLUME 11.3 fl (7.4-10.4); MONOCYTE # 0.8 10^3/ul (0.3-0.9); MONOCYTES % 5.1 % (0.0-11.0); NEUTROPHIL # 12.2 10^3/ul (1.6-7.5); NEUTROPHILS % 79.1 % (39.0-77.0); PLATELET COUNT 293 10^3/UL (140-415); RED BLOOD COUNT 3.14 10^6/ul (4.20-5.40); RED CELL DISTRIBUTION WIDTH 17.1 % (11.5-14.5); WHITE BLOOD COUNT 15.4 10^3/ul (4.8-10.8)
[2017-02-06 08:16] LABS: POSITIVE DIFF @See below
[2017-02-06 08:35] LABS: CALCIUM 7.4 mg/dl (8.4-10.2); CREATININE 0.93 mg/dl (0.44-1.00); POTASSIUM 3.5 mmol/L (3.5-5.1)
[2017-02-06] MEDS: FAMOTIDINE 20 MG INJ IV SCH (09:17)
[2017-02-06] MEDS: ENOXAPARIN 30 MG/0.3 ML SYG SC SCH (09:19)
--- NOTE | 2017-02-06 10:12 | PN ---
Date/Time of Note Date/Time of Note DATE: 02/06/17 TIME: 10:12 Assessment/Plan VTE Prophylaxis VTE Prophylaxis Intervention: other Lines/Catheters [facility] Saline Lock Urinary Cath still in place: No Assessment/Plan Chief Complaint/Hosp Course 1) peritonitis - IV antibiotics - I&D per surgery - monitor clinically 2) hypertension - blood pressure is low currently Problems: Subjective 24 Hr Interval Summary Free Text/Dictation Feel better today, off vasopressors Exam/Review of Systems Vital Signs Vitals Vital Signs Date Time Temp Pulse Resp B/P Pulse Ox O2 Delivery O2 Flow Rate FiO2 02/06/17 09:30 73 16 106/65 96 02/06/17 09:00 Room Air 02/06/17 08:00 98.0 02/05/17 16:45 2.0 Intake and Output 02/05/17 02/05/17 02/06/17 15:00 23:00 07:00 Intake Total 1970 ml 1575.0 ml 540 ml Output Total 560 ml 720 ml 500 ml Balance 1410 ml 855.0 ml 40 ml Exam Constitutional: well developed Head: atraumatic, normocephalic Neck: supple Respiratory: diminished breath sounds Cardiovascular: regular rate and rhythm Gastrointestinal: non-tender, soft Extremities: normal pulses Results Result Diagram: 02/06/17 0800 02/06/17 0800 Results 24 hrs Laboratory Tests Test 02/05/17 13:55 02/06/17 08:00 Hemoglobin 7.8 L 7.3 L Hematocrit 25.4 L 24.0 L Potassium Level 3.1 L 3.5 White Blood Count 15.4 #H Red Blood Count 3.14 L Mean Corpuscular Volume 76.4 L Mean Corpuscular Hemoglobin 23.2 L Mean Corpuscular Hemoglobin Concent 30.4 L Red Cell Distribution Width 17.1 H Platelet Count 293 Mean Platelet Volume 11.3 H Neutrophils % 79.1 H Lymphocytes % 8.9 L Monocytes % 5.1 Eosinophils % 0.8 Basophils % 0.5 Nucleated Red Blood Cells % 0.0 Neutrophils # 12.2 H Lymphocytes # 1.4 Monocytes # 0.8 Eosinophils # 0.1 Basophils # 0.1 Nucleated Red Blood Cells # 0.0 Sodium Level 141 Chloride Level 111 H Carbon Dioxide Level 19 L Anion Gap 15 Blood Urea Nitrogen 18 # Creatinine 0.93 Glucose Level 85 Calcium Level 7.4 L Medications Medications Current Medications Ondansetron HCl (Zofran Inj) 4 mg Q6H PRN IV NAUSEA AND/OR VOMITING Last administered on 02/06/17 05:34; Admin Dose 4 MG; Start 02/04/17 at 21:00 Acetaminophen (Tylenol Tab) 650 mg Q6H PRN PO PAIN LEVEL 1-3 OR FEVER Last administered on 02/04/17 21:52; Admin Dose 650 MG; Start 02/04/17 at 21:00 Morphine Sulfate (morphine) 2 mg Q4H PRN IV SEVERE PAIN LEVEL 7-10 Last administered on 02/06/17 05:35; Admin Dose 2 MG; Start 02/04/17 at 21:00 Famotidine (Pepcid Iv) 20 mg DAILY IV Last administered on 02/06/17 09:17; Admin Dose 20 MG; Start 02/04/17 at 21:30 Enoxaparin Sodium 30 mg 30 mg DAILY SC Last administered on 02/06/17 09:19; Admin Dose 30 MG; Start 02/05/17 at 09:00 Piperacillin Sod/ Tazobactam Sod 100 ml @ 200 mls/hr Q6 IVPB Last administered on 02/06/17 05:34; Admin Dose 200 MLS/HR; Start 02/05/17 at 00: 00 Potassium Chloride 40 meq/ Sodium Chloride 1,020 ml @ 100 mls/hr [id number] IV Last administered on 02/06/17 05:34; Admin Dose 100 MLS/HR; Start 02/05/17 at 08:30 Dobutamine HCl/ Dextrose 250 ml @ 12.765 mls/ hr TITRATE IV Last administered on 02/05/17 16:22; Admin Dose 12.765 MLS/HR; Start 02/05/17 at 16:00 ELIAZAR LAU Feb 06, 2017 10:12
[2017-02-06] MEDS ORDERED: POTASSIUM CHLORIDE 20 MEQ POWDER FOR ORAL SOLN PO ONE (13:30)
--- NOTE | 2017-02-06 13:49 | PN ---
Date/Time of Note Date/Time of Note DATE: 02/06/17 TIME: 13:47 Assessment/Plan Lines/Catheters IV Catheter Type (from Nrsg): Saline Lock Clifford in Place (from Nrsg): No Assessment/Plan Assessment/Plan Hospital day 1 for wound infection WBC down, afebrile, and normotensive Improving Continue current care but recommend wound VAC Follow-up with me or [facility] surgeon in 1-2 weeks upon discharge Subjective 24 Hr Interval Summary Constitutional: no complaints, other (Feels much better) Additional Comments Feeling much better Exam/Review of Systems Vital Signs Vitals Vital Signs Date Time Temp Pulse Resp B/P Pulse Ox O2 Delivery O2 Flow Rate FiO2 02/06/17 09:30 73 16 106/65 96 02/06/17 09:00 Room Air 02/06/17 08:00 98.0 02/05/17 16:45 2.0 Intake and Output 02/05/17 02/05/17 02/06/17 15:00 23:00 07:00 Intake Total 1970 ml 1575.0 ml 540 ml Output Total 560 ml 720 ml 500 ml Balance 1410 ml 855.0 ml 40 ml Exam Constitutional: alert, oriented, well developed Respiratory: clear to auscultation Cardiovascular: regular rate and rhythm Gastrointestinal: other (Decreased drainage and erythema to wound), soft Results Result Diagram: 02/06/1779902/06/17799 JOVANNA PETERS MD Feb 06, 2017 13:49
--- NOTE | 2017-02-06 18:23 | CONS ---
Date/Time of Note Date/Time of Note DATE: 02/06/17 TIME: 18:22 Assessment/Plan Assessment/Plan Chief Complaint/Hosp Course wound abcess Problems: Additional Assessment/Plan s/p spontaneous wound drainage- on bid dressing changes for wound vac will follow Consultation Date/Type/Reason Admit Date/Time Feb 04, 2017 at 21:02 Initial Consult Date 02/05/17 Type of Consultation: Gynecology Reason for Consultation wound abcess Exam/Review of Systems Vital Signs Vitals Vital Signs Date Time Temp Pulse Resp B/P Pulse Ox O2 Delivery O2 Flow Rate FiO2 02/06/17 17:00 76 19 82/70 98 Room Air 02/06/17 16:00 98.0 02/05/17 16:45 2.0 Intake and Output 02/05/17 02/05/17 02/06/17 15:00 23:00 07:00 Intake Total 1970 ml 1575.0 ml 540 ml Output Total 560 ml 720 ml 500 ml Balance 1410 ml 855.0 ml 40 ml Results Result Diagram: 02/06/17 0800 02/06/17 0800 Results 24 hrs Laboratory Tests Test 02/06/17 08:00 White Blood Count 15.4 #H Red Blood Count 3.14 L Hemoglobin 7.3 L Hematocrit 24.0 L Mean Corpuscular Volume 76.4 L Mean Corpuscular Hemoglobin 23.2 L Mean Corpuscular Hemoglobin Concent 30.4 L Red Cell Distribution Width 17.1 H Platelet Count 293 Mean Platelet Volume 11.3 H Neutrophils % 79.1 H Lymphocytes % 8.9 L Monocytes % 5.1 Eosinophils % 0.8 Basophils % 0.5 Nucleated Red Blood Cells % 0.0 Neutrophils # 12.2 H Lymphocytes # 1.4 Monocytes # 0.8 Eosinophils # 0.1 Basophils # 0.1 Nucleated Red Blood Cells # 0.0 Sodium Level 141 Potassium Level 3.5 Chloride Level 111 H Carbon Dioxide Level 19 L Anion Gap 15 Blood Urea Nitrogen 18 # Creatinine 0.93 Glucose Level 85 Calcium Level 7.4 L Medications Medications Current Medications Ondansetron HCl (Zofran Inj) 4 mg Q6H PRN IV NAUSEA AND/OR VOMITING Last administered on 02/06/17t 14:21; Admin Dose 4 MG; Start 02/04/17 at 21:00 Acetaminophen (Tylenol Tab) 650 mg Q6H PRN PO PAIN LEVEL 1-3 OR FEVER Last administered on 02/04/17 21:52; Admin Dose 650 MG; Start 02/04/17 at 21:00 Morphine Sulfate (morphine) 2 mg Q4H PRN IV SEVERE PAIN LEVEL 7-10 Last administered on 02/06/17 12:44; Admin Dose 2 MG; Start 02/04/17 at 21:00 Famotidine (Pepcid Iv) 20 mg DAILY IV Last administered on 02/06/17 09:17; Admin Dose 20 MG; Start 02/04/17 at 21:30 Enoxaparin Sodium 30 mg 30 mg DAILY SC Last administered on 02/06/17 09:19; Admin Dose 30 MG; Start 02/05/17 at 09:00 Piperacillin Sod/ Tazobactam Sod 100 ml @ 200 mls/hr Q6 IVPB Last administered on 02/06/17 17:54; Admin Dose 200 MLS/HR; Start 02/05/17 at 00: 00 Potassium Chloride/Sodium Chloride (KCl/NS) 1,020 ml @ 100 mls/hr [id number] IV Last administered on 02/06/17 05:34; Admin Dose 100 MLS/HR; Start 02/05/17 at 08:30 MAGNOLIA WANG MD Feb 06, 2017 18:23
[2017-02-07] VITALS (12 sets, daily range): BP systolic 116–161; BP diastolic 56–81; PULSE 67–90; RESP 16–20
[2017-02-07] MEDS ORDERED: LORAZEPAM 2 MG INJ IV PRN (00:10)
[2017-02-07] MEDS: PIPER-TAZO 3.375 GM IV (PMX) 100 ML IVPB SCH ×4 (00:42→18:00)
[2017-02-07] MEDS: ONDANSETRON 4 MG INJ IV PRN (00:50)
[2017-02-07] MEDS: SODIUM CHLORIDE IV SCH ×6 (01:18→21:42)
[2017-02-07] MEDS: POTASSIUM CHLORIDE IV SCH ×6 (01:18→21:42)
[2017-02-07 06:42] LABS: ABNORMAL IP MESSAGE 1; BASOPHIL # 0.1 10^3/ul (0.0-0.1); BASOPHILS % 0.5 % (0.0-2.0); EOSINOPHILS # 0.2 10^3/ul (0.0-0.5); EOSINOPHILS % 1.2 % (0.0-7.0); HEMATOCRIT 25.9 % (37.0-47.0); HEMOGLOBIN 7.4 g/dl (12.0-16.0); LYMPHOCYTES # 1.7 10^3/ul (0.8-2.9); LYMPHOCYTES % 14.1 % (15.0-51.0); MEAN CORPUSCULAR HEMOGLOBIN 22.5 pg (29.0-33.0); MEAN CORPUSCULAR HGB CONC 28.6 g/dl (32.0-37.0); MEAN CORPUSCULAR VOLUME 78.7 fl (82.0-101.0); MEAN PLATELET VOLUME 11.6 fl (7.4-10.4); MONOCYTE # 0.7 10^3/ul (0.3-0.9); MONOCYTES % 5.6 % (0.0-11.0); NEUTROPHIL # 8.4 10^3/ul (1.6-7.5); NEUTROPHILS % 68.5 % (39.0-77.0); PLATELET COUNT 368 10^3/UL (140-415); RED BLOOD COUNT 3.29 10^6/ul (4.20-5.40); RED CELL DISTRIBUTION WIDTH 17.3 % (11.5-14.5); WHITE BLOOD COUNT 12.2 10^3/ul (4.8-10.8)
[2017-02-07 06:44] LABS: POSITIVE DIFF @See below
[2017-02-07 07:10] LABS: CALCIUM 8.2 mg/dl (8.4-10.2); CREATININE 0.85 mg/dl (0.44-1.00); POTASSIUM 4.3 mmol/L (3.5-5.1)
[2017-02-07] MEDS: FAMOTIDINE 20 MG INJ IV SCH (08:59)
[2017-02-07] MEDS: ENOXAPARIN 30 MG/0.3 ML SYG SC SCH (09:03)
--- NOTE | 2017-02-07 09:38 | PQ ---
Date/Time of Note Date/Time of Note DATE: 02/07/17 TIME: 09:[address] Burk, A review of the medical record found a need for documentation clarification. patient admitted with postoperative infection. sepsis is documented in ED record , patient found to have T 102.5, P 126, RR 24, BP 92/53, WBC 22.9 and patient is on V antibiotics. patient was also given IV Dobutamin for BP support. please specify if you agree with ED documentation. Thank you Please clarify a diagnosis being treated. To facilitate accurate and complete coding, please austin ( x ) the suspected diagnosis that apply: ( ) Sepsis ( ) Severe sepsis with septic shock ( ) Other ( ) Unable to determine Please provide your response by clicking edit document,~ making~ your choice ( x ), click ok/save and finally click sign. You may also~ document your response~ on~ your progress notes. Thank you for your time. Mena CISSE,CCS,CCDS Clinical Orange Picker Machine Operator Health Information Management, CDI and Coding Services [phone] Room # 1525 - [address]~ [address] MENA VALERIO Feb 07, 2017 09:38
[2017-02-07 09:51] LABS: BURR CELLS 1+; OVALOCYTES 1+ (0-0); POLYCHROMASIA 1+ (0-0)
--- NOTE | 2017-02-07 10:33 | PN ---
Date/Time of Note Date/Time of Note DATE: 02/07/17 TIME: 10: Assessment/Plan VTE Prophylaxis VTE Prophylaxis Intervention: SCD's Lines/Catheters [facility] Saline Lock Urinary Cath still in place: No Assessment/Plan Chief Complaint/Hosp Course Patient stated that her pain is well controlled, stated that she still slightly lethargic after Ativan which was giving last night for agitation. Apparently abdominal wound is too big for a wound VAC application. Continue current wound care per surgical orders. Problems: Assessment/Plan -Sepsis with shock, resolving. Dr. Caicedo is asked to see patient in infection disease consultation. -Anemia with hemoglobin of 7.4, transfuse 2 units of packed red blood cells. - Large subcutaneous and rectus abdominous anterior fluid collection, possible abscess. Status post I&D by Dr. Reyna. Continue current wound care and antibiotics. We will add vancomycin to cover coagulase-negative staph in wound culture. Dr. Reyna is following in general surgery consultation. - Status post total abdominal hysterectomy on 01/[address] Mckeon at [facility]. Further recommendations based on clinical course. Plan of care is discussed by Dr. Geronimo. Exam/Review of Systems Vital Signs Vitals Vital Signs Date Time Temp Pulse Resp B/P Pulse Ox O2 Delivery O2 Flow Rate FiO2 02/07/17 07:59 97.7 75 16 132/77 95 02/06/17 18:00 Room Air 02/05/17 16:45 2.0 Intake and Output 02/06/17 02/06/17 02/07/17 15:00 23:00 07:00 Intake Total 1260 ml 400 ml 500 ml Output Total 700 ml 200 ml Balance 560 ml 200 ml 500 ml Exam Constitutional: alert, oriented Head: normocephalic Neck: supple Respiratory: normal air movement Cardiovascular: nl pulses Gastrointestinal: non-tender, soft Musculoskeletal: nl extremities to inspection Extremities: normal pulses Neurological: nl mental status Skin: other (Large lower abdominal wound) Results Result Diagram: 02/07/17 0555 02/07/17 0555 Results 24 hrs Laboratory Tests Test 02/07/17 05:55 White Blood Count 12.2 #H Red Blood Count 3.29 L Hemoglobin 7.4 L Hematocrit 25.9 L Mean Corpuscular Volume 78.7 L Mean Corpuscular Hemoglobin 22.5 L Mean Corpuscular Hemoglobin Concent 28.6 L Red Cell Distribution Width 17.3 H Platelet Count 368 # Mean Platelet Volume 11.6 H Neutrophils % 68.5 Lymphocytes % 14.1 L Monocytes % 5.6 Eosinophils % 1.2 Basophils % 0.5 Nucleated Red Blood Cells % 0.0 Neutrophils # 8.4 H Lymphocytes # 1.7 Monocytes # 0.7 Eosinophils # 0.2 Basophils # 0.1 Nucleated Red Blood Cells # 0.0 Polychromasia 1+ Ovalocytes 1+ Sodium Level 143 Potassium Level 4.3 Chloride Level 117 H Carbon Dioxide Level 19 L Anion Gap 11 Blood Urea Nitrogen 12 Creatinine 0.85 Glucose Level 87 Calcium Level 8.2 L Medications Medications Current Medications Ondansetron HCl (Zofran Inj) 4 mg Q6H PRN IV NAUSEA AND/OR VOMITING Last administered on 02/07/17 00:50; Admin Dose 4 MG; Start 02/04/17 at 21:00 Acetaminophen (Tylenol Tab) 650 mg Q6H PRN PO PAIN LEVEL 1-3 OR FEVER Last administered on 02/04/17 21:52; Admin Dose 650 MG; Start 02/04/17 at 21:00 Morphine Sulfate (morphine) 2 mg Q4H PRN IV SEVERE PAIN LEVEL 7-10 Last administered on 02/06/17 21:46; Admin Dose 2 MG; Start 02/04/17 at 21:00 Famotidine (Pepcid Iv) 20 mg DAILY IV Last administered on 02/07/17 08:59; Admin Dose 20 MG; Start 02/04/17 at 21:30 Enoxaparin Sodium 30 mg 30 mg DAILY SC Last administered on 02/07/17 09:03; Admin Dose 30 MG; Start 02/05/17 at 09:00 Piperacillin Sod/ Tazobactam Sod 100 ml @ 200 mls/hr Q6 IVPB Last administered on 02/07/17 06:06; Admin Dose 200 MLS/HR; Start 02/05/17 at 00: 00 Potassium Chloride/Sodium Chloride (KCl/NS) 1,020 ml @ 100 mls/hr [id number] IV Last administered on 02/06/17 19:34; Admin Dose 100 MLS/HR; Start 02/05/17 at 08:30 Lorazepam (Ativan) 1 mg Q4 PRN IV ANXIETY Last administered on 02/07/17t 00:42 ; Admin Dose 1 MG; Start 02/07/17 at 00:10 ANGY GONCALVES Feb 07, 2017 10:33
[2017-02-07] MEDS ORDERED: VANCOMYCIN IV PER PHARMACY XX SCH (11:00)
[2017-02-07] MEDS ORDERED: VANCOMYCIN 1.75 GM in NS 500 ML IVPB SCH (13:00)
--- NOTE | 2017-02-07 17:35 | CONS ---
Date/Time of Note Date/Time of Note DATE: 02/07/17 TIME: 17:35 Consult Date/Type/Reason Admit Date/Time Feb 04, 2017 at 21:02 Initial Consult Date 02/05/17 Type of Consultation: Gynecology Reason for Consultation wound infection Subjective pt doing well Objective Vital Signs Date Time Temp Pulse Resp B/P Pulse Ox O2 Delivery O2 Flow Rate FiO2 02/07/17 15:44 97.8 74 16 161/81 99 02/06/17 18:00 Room Air 02/05/17 16:45 2.0 Intake and Output 02/06/17 02/06/17 02/07/17 15:00 23:00 07:00 Intake Total 1260 ml 400 ml 500 ml Output Total 700 ml 200 ml Balance 560 ml 200 ml 500 ml Results/Medications Result Diagram: 02/07/17 0555 02/07/17 0555 Results 24 hrs Laboratory Tests Test 02/07/17 05:55 White Blood Count 12.2 #H Red Blood Count 3.29 L Hemoglobin 7.4 L Hematocrit 25.9 L Mean Corpuscular Volume 78.7 L Mean Corpuscular Hemoglobin 22.5 L Mean Corpuscular Hemoglobin Concent 28.6 L Red Cell Distribution Width 17.3 H Platelet Count 368 # Mean Platelet Volume 11.6 H Neutrophils % 68.5 Lymphocytes % 14.1 L Monocytes % 5.6 Eosinophils % 1.2 Basophils % 0.5 Nucleated Red Blood Cells % 0.0 Neutrophils # 8.4 H Lymphocytes # 1.7 Monocytes # 0.7 Eosinophils # 0.2 Basophils # 0.1 Nucleated Red Blood Cells # 0.0 Polychromasia 1+ Ovalocytes 1+ Sodium Level 143 Potassium Level 4.3 Chloride Level 117 H Carbon Dioxide Level 19 L Anion Gap 11 Blood Urea Nitrogen 12 Creatinine 0.85 Glucose Level 87 Calcium Level 8.2 L Medications Current Medications Ondansetron HCl (Zofran Inj) 4 mg Q6H PRN IV NAUSEA AND/OR VOMITING Last administered on 02/07/17 00:50; Admin Dose 4 MG; Start 02/04/17 at 21:00 Acetaminophen (Tylenol Tab) 650 mg Q6H PRN PO PAIN LEVEL 1-3 OR FEVER Last administered on 02/04/17 21:52; Admin Dose 650 MG; Start 02/04/17 at 21:00 Morphine Sulfate (morphine) 2 mg Q4H PRN IV SEVERE PAIN LEVEL 7-10 Last administered on 02/06/17 21:46; Admin Dose 2 MG; Start 02/04/17 at 21:00 Famotidine (Pepcid Iv) 20 mg DAILY IV Last administered on 02/07/17 08:59; Admin Dose 20 MG; Start 02/04/17 at 21:30 Enoxaparin Sodium 30 mg 30 mg DAILY SC Last administered on 02/07/17 09:03; Admin Dose 30 MG; Start 02/05/17 at 09:00 Piperacillin Sod/ Tazobactam Sod 100 ml @ 200 mls/hr Q6 IVPB Last administered on 02/07/17 12:56; Admin Dose 200 MLS/HR; Start 02/05/17 at 00: 00 Potassium Chloride 40 meq/ Sodium Chloride 1,020 ml @ 100 mls/hr [id number] IV Last administered on 02/07/17 12:52; Admin Dose 100 MLS/HR; Start 02/05/17 at 08:30 Vancomycin HCl 1.75 gm/Sodium Chloride 500 ml @ 125 mls/hr ONCE@13 IVPB Last administered on 02/07/17 13:34; Admin Dose 125 MLS/HR; Start 02/07/17 at 13: 00; Stop 02/07/17 at 19:00 Vancomycin HCl/ Sodium Chloride (Vancocin/NS) 250 ml @ 83.333 mls/ hr Q12H IVPB ; Start 02/08/17 at 01:00 Lorazepam (Ativan) 1 mg HS PO ; Start 02/07/17 at 21:00 Assessment/Plan Chief Complaint/Hosp Course wound abcess Problems: Additional Assessment/Plan continue care perf g-surg will follow MAGNOLIA WANG MD Feb 07, 2017 17:35
[2017-02-07] MEDS: MULTIVITAMINS/MINERALS TAB PO SCH (18:30)
--- NOTE | 2017-02-07 20:12 | QN ---
Documentation Comment ID consult requested by ANIA Whittaker. Dr. Caicedo to see pt in AM. Continue vanco and pip/tazo; plan to de-escalate abx soon once final wound cx results available. Thank you for the consult. D/w Dr. Caicedo. FLOYD HUNT NP Feb 07, 2017 20:12
[2017-02-07] MEDS: ASCORBIC ACID 500 MG TAB PO SCH (22:10)
[2017-02-07] MEDS: LORAZEPAM 1 MG TAB PO SCH (22:10)
[2017-02-07] MEDS ORDERED: traMADol 50 MG TAB PO PRN (23:00)
[2017-02-07] MEDS: morphine 2 MG INJ IV PRN (23:03)
[2017-02-08] VITALS (13 sets, daily range): BP systolic 132–177; BP diastolic 69–94; PULSE 69–75; RESP 18–20
[2017-02-08] MEDS ORDERED: LIDOCAINE 1% (MPF) 5 ML VIAL SC ONE (00:30)
[2017-02-08] MEDS: VANCOMYCIN 1.25 GM in SOD CHLORIDE 0.9% 250 ML IVPB SCH ×2 (01:00→16:29)
[2017-02-08] MEDS: PIPER-TAZO 3.375 GM IV (PMX) 100 ML IVPB SCH ×4 (06:00→18:00)
[2017-02-08 07:32] LABS: ABNORMAL IP MESSAGE 1; BASOPHIL # 0.1 10^3/ul (0.0-0.1); BASOPHILS % 0.9 % (0.0-2.0); EOSINOPHILS # 0.2 10^3/ul (0.0-0.5); EOSINOPHILS % 1.2 % (0.0-7.0); HEMATOCRIT 30.2 % (37.0-47.0); HEMOGLOBIN 9.2 g/dl (12.0-16.0); LYMPHOCYTES # 1.8 10^3/ul (0.8-2.9); LYMPHOCYTES % 12.8 % (15.0-51.0); MEAN CORPUSCULAR HEMOGLOBIN 24.1 pg (29.0-33.0); MEAN CORPUSCULAR HGB CONC 30.5 g/dl (32.0-37.0); MEAN CORPUSCULAR VOLUME 79.1 fl (82.0-101.0); MEAN PLATELET VOLUME 11.3 fl (7.4-10.4); MONOCYTES % 7.1 % (0.0-11.0); NEUTROPHIL # 8.8 10^3/ul (1.6-7.5); NEUTROPHILS % 63.6 % (39.0-77.0); NUCLEATED RED BLOOD CELLS% 0.1 /100WBC (0.0-0.0); PLATELET COUNT 409 10^3/UL (140-415); RED BLOOD COUNT 3.82 10^6/ul (4.20-5.40); RED CELL DISTRIBUTION WIDTH 17.3 % (11.5-14.5); WHITE BLOOD COUNT 13.8 10^3/ul (4.8-10.8)
[2017-02-08 07:58] LABS: CALCIUM 8.5 mg/dl (8.4-10.2); CREATININE 0.84 mg/dl (0.44-1.00); POTASSIUM 4.1 mmol/L (3.5-5.1)
[2017-02-08] MEDS: FAMOTIDINE 20 MG INJ IV SCH (09:00)
[2017-02-08] MEDS: MULTIVITAMINS/MINERALS TAB PO SCH (09:04)
[2017-02-08] MEDS: ASCORBIC ACID 500 MG TAB PO SCH ×2 (09:04→21:04)
[2017-02-08] MEDS: ZINC SULFATE 220 MG CAP PO SCH (09:04)
[2017-02-08] MEDS: SODIUM HYPOCHLORITE 1/40% 1L IRRIG IRR SCH ×2 (09:33→21:05)
[2017-02-08] MEDS: ENOXAPARIN 30 MG/0.3 ML SYG SC SCH (09:33)
[2017-02-08] MEDS: HYDROCODONE/APAP (5/325) TAB PO PRN (12:51)
--- NOTE | 2017-02-08 12:58 | PN ---
Date/Time of Note Date/Time of Note DATE: 02/08/17 TIME: 12:56 Assessment/Plan Lines/Catheters IV Catheter Type (from Nrs): Peripheral IV Clifford in Place (from Nrs): No Assessment/Plan Assessment/Plan Hospital day #3 for wound infection WBC still elevated but afebrile Wound is improving, less drain Continue dressing changes. Follow-up in my office in 1 week Subjective 24 Hr Interval Summary Constitutional: improved, no complaints Exam/Review of Systems Vital Signs Vitals Vital Signs Date Time Temp Pulse Resp B/P Pulse Ox O2 Delivery O2 Flow Rate FiO2 02/08/17 11:41 99.0 85 20 177/90 96 02/06/17 18:00 Room Air 02/05/17 16:45 2.0 Intake and Output 02/07/17 02/07/17 02/08/17 15:00 23:00 07:00 Intake Total 880 ml Balance 880 ml Exam Constitutional: alert, oriented, well developed Neck: supple Respiratory: clear to auscultation Cardiovascular: regular rate and rhythm Gastrointestinal: soft Additional Comments Wound -decreased tenderness, decreased erythema and induration, no drainage present Results Result Diagram: 02/08/17 0620 02/08/17 0620 JOVANNA PETERS MD Feb 08, 2017 12:58
--- NOTE | 2017-02-08 14:22 | PN ---
Date/Time of Note Date/Time of Note DATE: 02/08/17 TIME: 14:19 Assessment/Plan VTE Prophylaxis VTE Prophylaxis Intervention: SCD's Lines/Catheters IV C[facility] Type (from [facility] Peripheral IV Urinary Cath still in place: No Assessment/Plan Chief Complaint/Hosp Course Patient status post blood transfusion yesterday with improvement in hemoglobin, pending PICC line placement, complains of generalized weakness and poor appetite , awake alert. Assessment/Plan -Sepsis with shock, resolving. Dr. Caicedo is following in infection disease consultation. -Anemia, status post blood transfusion. - Wound abscess. Status post I&D by Dr. Reyna. Continue current wound care and antibiotics. Continue vancomycin to cover coagulase-negative staph in wound culture. Dr. Reyna is following in general surgery consultation. - Status post total abdominal hysterectomy on 01/[address] Mckeon at [facility]. Further recommendations based on clinical course. Plan of care is discussed by Dr. Geronimo. Problems: Exam/Review of Systems Vital Signs Vitals Vital Signs Date Time Temp Pulse Resp B/P Pulse Ox O2 Delivery O2 Flow Rate FiO2 02/08/17 12:00 70 02/08/17 11:41 99.0 20 177/90 96 02/06/17 18:00 Room Air 02/05/17 16:45 2.0 Intake and Output 02/07/17 02/07/17 02/08/17 15:00 23:00 07:00 Intake Total 880 ml Balance 880 ml Exam Constitutional: alert, oriented Respiratory: normal air movement Cardiovascular: nl pulses Gastrointestinal: non-tender, soft Musculoskeletal: nl extremities to inspection Skin: other (Large lower abdominal wound) Results Result Diagram: 02/08/17 0620 02/08/17 0620 Results 24 hrs Laboratory Tests Test 02/08/17 06:20 White Blood Count 13.8 H Red Blood Count 3.82 L Hemoglobin 9.2 #L Hematocrit 30.2 L Mean Corpuscular Volume 79.1 L Mean Corpuscular Hemoglobin 24.1 L Mean Corpuscular Hemoglobin Concent 30.5 L Red Cell Distribution Width 17.3 H Platelet Count 409 Mean Platelet Volume 11.3 H Neutrophils % 63.6 Lymphocytes % 12.8 L Monocytes % 7.1 Eosinophils % 1.2 Basophils % 0.9 Nucleated Red Blood Cells % 0.1 H Neutrophils # 8.8 H Lymphocytes # 1.8 Monocytes # 1.0 H Eosinophils # 0.2 Basophils # 0.1 Nucleated Red Blood Cells # 0.0 Sodium Level 142 Potassium Level 4.1 Chloride Level 113 H Carbon Dioxide Level 22 Anion Gap 11 Blood Urea Nitrogen 13 Creatinine 0.84 Glucose Level 84 Calcium Level 8.5 Medications Medications Current Medications Ondansetron HCl (Zofran Inj) 4 mg Q6H PRN IV NAUSEA AND/OR VOMITING Last administered on 02/07/17 00:50; Admin Dose 4 MG; Start 02/04/17 at 21:00 Acetaminophen (Tylenol Tab) 650 mg Q6H PRN PO PAIN LEVEL 1-3 OR FEVER Last administered on 02/04/17 21:52; Admin Dose 650 MG; Start 02/04/17 at 21:00 Morphine Sulfate (morphine) 2 mg Q4H PRN IV SEVERE PAIN LEVEL 7-10 Last administered on 02/07/17 23:03; Admin Dose 2 MG; Start 02/04/17 at 21:00 Famotidine (Pepcid Iv) 20 mg DAILY IV Last administered on 02/07/17 08:59; Admin Dose 20 MG; Start 02/04/17 at 21:30 Enoxaparin Sodium 30 mg 30 mg DAILY SC Last administered on 02/08/17 09:33; Admin Dose 30 MG; Start 02/05/17 at 09:00 Piperacillin Sod/ Tazobactam Sod 100 ml @ 200 mls/hr Q6 IVPB Last administered on 02/07/17 12:56; Admin Dose 200 MLS/HR; Start 02/05/17 at 00: 00 Potassium Chloride 40 meq/ Sodium Chloride 1,020 ml @ 100 mls/hr [id number] IV Last administered on 02/07/17 12:52; Admin Dose 100 MLS/HR; Start 02/05/17 at 08:30 Vancomycin HCl/ Sodium Chloride (Vancocin/NS) 250 ml @ 83.333 mls/ hr Q12H IVPB ; Start 02/08/17 at 01:00 Lorazepam (Ativan) 1 mg HS PO Last administered on 02/07/17 22:10; Admin Dose 1 MG; Start 02/07/17 at 21:00 Multivitamins/ Minerals (Theragran-M) 1 tab DAILY PO Last administered on 02/08 09:04; Admin Dose 1 TAB; Start 02/07/17 at 18:30 Ascorbic Acid (Vitamin C) 500 mg BID PO Last administered on 02/08/17 09:04; Admin Dose 500 MG; Start 02/07/17 at 21:00 Zinc Sulfate (Zinc Sulfate) 220 mg DAILY PO Last administered on 02/08/17 09: 04; Admin Dose 220 MG; Start 02/08/17 at 09:00 Tramadol HCl (Ultram) 50 mg Q4 PRN PO PAIN Last administered on 02/07/17 23: 37; Admin Dose 50 MG; Start 02/07/17 at 23:00 Sodium Hypochlorite (Dakin'S (Dilute 1/40%)) 1 applic BID IRR Last administered on 02/08/17 09:33; Admin Dose 1 APPLIC; Start 02/08/17 at 09:00 ; Stop 02/17/17 at 08:59 Acetaminophen/ Hydrocodone Bitart ([place] (5/325)) 1 tab Q4H PRN PO PAIN Last administered on 02/08/17 12:51; Admin Dose 1 TAB; Start 02/08/17 at 12:30 Hydralazine HCl (Apresoline) 25 mg Q6H PRN PO SBP > 160 Last administered on 13:45; Admin Dose 25 MG; Start 02/08/17 at 14:00 ANGY GONCALVES Feb 08, 2017 14:22
[2017-02-08] MEDS: SODIUM CHLORIDE IV SCH ×4 (15:02→18:06)
[2017-02-08] MEDS: POTASSIUM CHLORIDE IV SCH ×4 (15:02→18:06)
[2017-02-08] MEDS: morphine 2 MG INJ IV PRN ×2 (15:04→21:04)
--- NOTE | 2017-02-08 15:07 | RADRPT ---
PROCEDURE: US guidance for PICC line CLINICAL INDICATION: PICC line placement TECHNIQUE: Multiple real-time images were acquired of the patient's arm utilizing a high resolutio n transducer. This was performed by the PICC line nurse for venous access. COMPARISON: None FINDINGS: Ultrasound guidance for PICC line placement. IMPRESSION: Ultrasound guidance for PICC line placement. RPTAT: AA .Cristian Otoole MD, MD Date Time Electronically viewed and signed by .Cristian Otoole MD, on 02/08/2017 15:06 .S/
[2017-02-08] MEDS: ONDANSETRON 4 MG INJ IV PRN ×2 (15:11→21:17)
--- NOTE | 2017-02-08 16:15 | RADRPT ---
AMENDMENT: 02/08/2017 4:15:59 PM Sae Galdamez Md Correction: IMPRESSION: 1. Right arm PICC line tip in satisfactory position. 2. Mild atelectasis at the lung bases. 3. Otherwise normal chest radiograph. PROCEDURE: XR Chest. CLINICAL INDICATION: Check PICC line position. TECHNIQUE: Single frontal view. COMPARISON: No prior study is available for comparison. FINDINGS: There is a right arm PICC line with the tip in the lower superior vena cava. There is mild atelecta sis at the lung bases. The lungs are otherwise clear. The heart size is normal. There is no pleural effusion. There is no pneumothorax. IMPRESSION: 1. Left arm PICC line tip in satisfactory position. 2. Mild atelectasis at the lung bases. 3. Otherwise normal chest radiograph. RPTAT: QQ .Sae Galdamez MD, Date Time Electronically viewed and signed by .Sae Galdamez MD, on 02/08/2017 16:15 .R/
[2017-02-08] MEDS ORDERED: SOD CHLORIDE 0.9% 100 ML ONE (16:17)
--- NOTE | 2017-02-08 16:35 | CONS ---
Date/Time of Note Date/Time of Note DATE: 02/08/17 TIME: 16:31 Assessment/Plan Assessment/Plan Chief Complaint/Hosp Course 1. Large subcutaneous and rectus abdominous anterior fluid collection measuring 19 cm transverse by 4.6 cm AP by 6.9 cm in superior inferior dimensions. Differential to include abscess, infected seroma or hematoma. 2. s/p hysterectomy R: unasyn consider repeat imaging and drainage if needed Problems: Consultation Date/Type/Reason Admit Date/Time Feb 04, 2017 at 21:02 Date of Consultation: Feb 08, 2017 Type of Consultation: id Referring Provider: ANGY GONCALVES Hx of Present Illness 51 yo female s/p hysterectomy at [facility] several weeks ago now admitted with intra- abdominal abscess. She notes spontaneous drainage of purulent material Constitutional: improved, no complaints Eyes: no complaints ENT: no complaints Respiratory: no complaints Cardiovascular: no complaints Gastrointestinal: no complaints Genitourinary: no complaints Skin: no complaints Neurologic: no complaints Endocrine: no complaints Psychological: nl mood/affect, no complaints Past Medical History Medical History: hypertension Past Surgical History Past Surgical Hx: cholecystectomy, other (Total abdominal hysterectomy for fibroids) Social History Alcohol Use: none Smoking Status: Never smoker Drug Use: none Exam/Review of Systems Vital Signs Vitals Vital Signs Date Time Temp Pulse Resp B/P Pulse Ox O2 Delivery O2 Flow Rate FiO2 02/08/17 15:50 98.4 72 20 159/86 98 02/06/17 18:00 Room Air 02/05/17 16:45 2.0 Intake and Output 02/07/17 02/07/17 02/08/17 15:00 23:00 07:00 Intake Total 880 ml Balance 880 ml Exam Constitutional: alert, oriented, well developed Psych: nl mood/affect, no complaints Eyes: EOMI, PERRL, nl conjunctiva, nl lids, nl sclera Neck: non-tender, supple Respiratory: clear to auscultation, normal air movement Cardiovascular: nl pulses, regular rate and rhythm Gastrointestinal: other (wound bandaged), soft, tender Musculoskeletal: nl extremities to inspection, nl gait and stance Results Result Diagram: 02/08/17 0620 02/08/17 0620 Results 24 hrs Laboratory Tests Test 02/08/17 06:20 White Blood Count 13.8 H Red Blood Count 3.82 L Hemoglobin 9.2 #L Hematocrit 30.2 L Mean Corpuscular Volume 79.1 L Mean Corpuscular Hemoglobin 24.1 L Mean Corpuscular Hemoglobin Concent 30.5 L Red Cell Distribution Width 17.3 H Platelet Count 409 Mean Platelet Volume 11.3 H Neutrophils % 63.6 Lymphocytes % 12.8 L Monocytes % 7.1 Eosinophils % 1.2 Basophils % 0.9 Nucleated Red Blood Cells % 0.1 H Neutrophils # 8.8 H Lymphocytes # 1.8 Monocytes # 1.0 H Eosinophils # 0.2 Basophils # 0.1 Nucleated Red Blood Cells # 0.0 Sodium Level 142 Potassium Level 4.1 Chloride Level 113 H Carbon Dioxide Level 22 Anion Gap 11 Blood Urea Nitrogen 13 Creatinine 0.84 Glucose Level 84 Calcium Level 8.5 Medications Medications Current Medications Ondansetron HCl (Zofran Inj) 4 mg Q6H PRN IV NAUSEA AND/OR VOMITING Last administered on 02/08/17 15:11; Admin Dose 4 MG; Start 02/04/17 at 21:00 Acetaminophen (Tylenol Tab) 650 mg Q6H PRN PO PAIN LEVEL 1-3 OR FEVER Last administered on 02/04/17 21:52; Admin Dose 650 MG; Start 02/04/17 at 21:00 Morphine Sulfate (morphine) 2 mg Q4H PRN IV SEVERE PAIN LEVEL 7-10 Last administered on 02/08/17 15:04; Admin Dose 2 MG; Start 02/04/17 at 21:00 Famotidine (Pepcid Iv) 20 mg DAILY IV Last administered on 02/07/17 08:59; Admin Dose 20 MG; Start 02/04/17 at 21:30 Enoxaparin Sodium 30 mg 30 mg DAILY SC Last administered on 02/08/17 09:33; Admin Dose 30 MG; Start 02/05/17 at 09:00 Piperacillin Sod/ Tazobactam Sod 100 ml @ 200 mls/hr Q6 IVPB Last administered on 02/08/17 15:02; Admin Dose 200 MLS/HR; Start 02/05/17 at 00: 00 Potassium Chloride 40 meq/ Sodium Chloride 1,020 ml @ 100 mls/hr [id number] IV Last administered on 02/08/17 15:02; Admin Dose 100 MLS/HR; Start 02/05/17 at 08:30 Vancomycin HCl/ Sodium Chloride (Vancocin/NS) 250 ml @ 83.333 mls/ hr Q12H IVPB Last administered on 02/08/17 16:29; Admin Dose 83.333 MLS/HR; Start at 01:00 Lorazepam (Ativan) 1 mg HS PO Last administered on 02/07/17 22:10; Admin Dose 1 MG; Start 02/07/17 at 21:00 Multivitamins/ Minerals (Theragran-M) 1 tab DAILY PO Last administered on 02/08 09:04; Admin Dose 1 TAB; Start 02/07/17 at 18:30 Ascorbic Acid (Vitamin C) 500 mg BID PO Last administered on 02/08/17 09:04; Admin Dose 500 MG; Start 02/07/17 at 21:00 Zinc Sulfate (Zinc Sulfate) 220 mg DAILY PO Last administered on 02/08/17 09: 04; Admin Dose 220 MG; Start 02/08/17 at 09:00 Tramadol HCl (Ultram) 50 mg Q4 PRN PO PAIN Last administered on 02/07/17 23: 37; Admin Dose 50 MG; Start 02/07/17 at 23:00 Sodium Hypochlorite (Dakin'S (Dilute 1/40%)) 1 applic BID IRR Last administered on 02/08/17 09:33; Admin Dose 1 APPLIC; Start 02/08/17 at 09:00 ; Stop 02/17/17 at 08:59 Acetaminophen/ Hydrocodone Bitart ([place] (5/325)) 1 tab Q4H PRN PO PAIN Last administered on 02/08/17 12:51; Admin Dose 1 TAB; Start 02/08/17 at 12:30 Hydralazine HCl (Apresoline) 25 mg Q6H PRN PO SBP > 160 Last administered on 13:45; Admin Dose 25 MG; Start 02/08/17 at 14:00 Losartan Potassium (Cozaar) 25 mg BID PO ; Start 02/08/17 at 21:00 IV Flush (NS 10 ml) 10 ml PRN PRN IV IV PROTOCOL; Start 02/08/17 at 15:00 BETTINA GOINS MD Feb 08, 2017 16:35
--- NOTE | 2017-02-08 17:56 | QN ---
Documentation Comment patient is seen at the bedside. comfortable VS stable Gen NAD Abd soft ND NT Dressing changed recently Genitalia Deffered --->Repeat CT tomorrow ---->Continue Antibiotics --->Wound care WADE CLAY M.D. Feb 08, 2017 17:56
[2017-02-08] MEDS: LORAZEPAM 1 MG TAB PO SCH (21:05)
[2017-02-08] MEDS: LOSARTAN 25 MG TAB PO SCH (21:05)
[2017-02-09] VITALS (13 sets, daily range): BP systolic 134–194; BP diastolic 82–92; PULSE 73–89; RESP 18–20
[2017-02-09] MEDS: HYDROCODONE/APAP (5/325) TAB PO PRN ×2 (00:40→13:04)
[2017-02-09] MEDS: PIPER-TAZO 3.375 GM IV (PMX) 100 ML IVPB SCH ×4 (00:50→18:00)
[2017-02-09] MEDS: VANCOMYCIN 1.25 GM in SOD CHLORIDE 0.9% 250 ML IVPB SCH ×2 (04:37→16:39)
[2017-02-09] MEDS: SODIUM CHLORIDE IV SCH ×6 (04:37→22:20)
[2017-02-09] MEDS: POTASSIUM CHLORIDE IV SCH ×6 (04:37→22:20)
[2017-02-09 07:31] LABS: ABNORMAL IP MESSAGE 1; HEMATOCRIT 28.7 % (37.0-47.0); HEMOGLOBIN 8.9 g/dl (12.0-16.0); MEAN CORPUSCULAR HEMOGLOBIN 24.3 pg (29.0-33.0); MEAN CORPUSCULAR VOLUME 78.2 fl (82.0-101.0); MEAN PLATELET VOLUME 11.3 fl (7.4-10.4); NUCLEATED RED BLOOD CELLS% 0.1 /100WBC (0.0-0.0); PLATELET COUNT 406 10^3/UL (140-415); RED BLOOD COUNT 3.67 10^6/ul (4.20-5.40); RED CELL DISTRIBUTION WIDTH 17.3 % (11.5-14.5); WHITE BLOOD COUNT 13.5 10^3/ul (4.8-10.8)
[2017-02-09 07:38] LABS: POSITIVE DIFF @See below
[2017-02-09 07:56] LABS: CALCIUM 8.4 mg/dl (8.4-10.2); CREATININE 0.95 mg/dl (0.44-1.00); POTASSIUM 3.8 mmol/L (3.5-5.1)
[2017-02-09] MEDS: ZINC SULFATE 220 MG CAP PO SCH (08:38)
[2017-02-09] MEDS: ASCORBIC ACID 500 MG TAB PO SCH ×2 (08:38→20:56)
[2017-02-09] MEDS: SODIUM HYPOCHLORITE 1/40% 1L IRRIG IRR SCH ×2 (08:38→21:36)
[2017-02-09] MEDS: MULTIVITAMINS/MINERALS TAB PO SCH (08:39)
[2017-02-09] MEDS: FAMOTIDINE 20 MG INJ IV SCH (08:39)
[2017-02-09] MEDS: LOSARTAN 25 MG TAB PO SCH (08:43)
[2017-02-09] MEDS: ENOXAPARIN 30 MG/0.3 ML SYG SC SCH (08:52)
[2017-02-09 09:45] LABS: ANISOCYTOSIS 1+ (0-0); EOSINOPHILS % (M) 1 % (0-7); MICROCYTOSIS 1+ (0-0); MONOCYTES % (M) 8 % (0-11); MYELOCYTES % (M) 1 % (0-0); PLATELET ESTIMATE NORMAL; POLYCHROMASIA 1+ (0-0)
[2017-02-09] MEDS: ONDANSETRON 4 MG INJ IV PRN ×2 (10:33→21:05)
[2017-02-09] MEDS: ACETAMINOPHEN 325 MG TAB PO PRN (12:07)
--- NOTE | 2017-02-09 12:50 | CONS ---
Date/Time of Note Date/Time of Note DATE: 02/09/17 TIME: 12:32 Assessment/Plan Assessment/Plan Additional Assessment/Plan 1. Large subcutaneous and rectus abdominous anterior fluid collection measuring 19 cm transverse by 4.6 cm AP by 6.9 cm in superior inferior dimensions. Differential to include abscess, infected seroma or hematoma- On Vancomycin. - GRAM STAIN Final POLYMORPH. LEUKOCYTE NONE SEEN GRAM POS COCCI IN PAIRS RARE WOUND CULTURE Preliminary Organism 1 COAGULASE NEGATIVE STAPH QUANTITY 1+ Organism 2 GAMMA HEMOLYTIC STREP SPP QUANTITY 1+ COAG NEG M.I.C. RX 2. Diarrhea C DIFFICILE DNA AMPLIFICATION Final CYTOTOXIGENIC C DIFFICILE NEGATIVE 3. s/p hysterectomy- 01/25/2107 at [facility] R: - unasyn started 02/05/2105- - Vancomycin started 02/09/2107- - consider repeat imaging and drainage if needed - repeat CT per Dr Perez- pending Dw Dr Caicedo / RN Consultation Date/Type/Reason Admit Date/Time Feb 04, 2017 at 21:02 Initial Consult Date 02/08/17 Type of Consultation: id Referring Provider: ANGY GONCALVES 24 HR Interval Summary Free Text/Dictation afebrile, wbc trended down, up in bed- Abdominal dressings noted, dw staff Detailed Summary Respiratory: no complaints Cardiovascular: no complaints Gastrointestinal: pain Genitourinary: no complaints Musculoskeletal: no complaints Skin: other Exam/Review of Systems Vital Signs Vitals Vital Signs Date Time Temp Pulse Resp B/P Pulse Ox O2 Delivery O2 Flow Rate FiO2 02/09/17 08:00 80 02/09/17 07:24 97.9 20 165/86 94 02/06/17 18:00 Room Air 02/05/17 16:45 2.0 Intake and Output 02/08/17 02/08/17 02/09/17 15:00 23:00 07:00 Intake Total 1350 ml 1000 ml 500 ml Balance 1350 ml 1000 ml 500 ml Exam Constitutional: alert, oriented, well developed Neck: thyromegaly Respiratory: normal air movement Cardiovascular: nl pulses, other (s1s2) Gastrointestinal: soft, tender (wound abscess, sp abdominal asurgery) Musculoskeletal: nl extremities to inspection Neurological: nl mental status, nl speech Results Result Diagram: 02/09/17 0617 02/09/17 0617 Results 24 hrs Laboratory Tests Test 02/09/17 06:17 White Blood Count 13.5 H Red Blood Count 3.67 L Hemoglobin 8.9 L Hematocrit 28.7 L Mean Corpuscular Volume 78.2 L Mean Corpuscular Hemoglobin 24.3 L Mean Corpuscular Hemoglobin Concent 31.0 L Red Cell Distribution Width 17.3 H Platelet Count 406 Mean Platelet Volume 11.3 H Neutrophils % Segmented Neutrophils % (Manual) 68 Band Neutrophils % (Manual) 5 H Lymphocytes % Lymphocytes % (Manual) 17 Monocytes % Monocytes % (Manual) 8 Eosinophils % Eosinophils % (Manual) 1 Basophils % Myelocytes % (Manual) 1 H Nucleated Red Blood Cells % 0.1 H Neutrophils # Neutrophils # (Manual) 9.3 H Band Neutrophils # 0.6 Absolute Lymphocytes (Manual) 2.2 Lymphocytes # Monocytes # Absolute Monocytes (Manual) 1.0 H Eosinophils # Basophils # Myelocytes # 0.1 H Nucleated Red Blood Cells # Platelet Estimate NORMAL Polychromasia 1+ Anisocytosis 1+ Microcytosis 1+ Sodium Level 142 Potassium Level 3.8 Chloride Level 111 H Carbon Dioxide Level 24 Anion Gap 11 Blood Urea Nitrogen 13 Creatinine 0.95 Glucose Level 77 Calcium Level 8.4 Medications Medications Current Medications Ondansetron HCl (Zofran Inj) 4 mg Q6H PRN IV NAUSEA AND/OR VOMITING Last administered on 02/09/17 10:33; Admin Dose 4 MG; Start 02/04/17 at 21:00 Acetaminophen (Tylenol Tab) 650 mg Q6H PRN PO PAIN LEVEL 1-3 OR FEVER Last administered on 02/09/17 12:07; Admin Dose 650 MG; Start 02/04/17 at 21:00 Morphine Sulfate (morphine) 2 mg Q4H PRN IV SEVERE PAIN LEVEL 7-10 Last administered on 02/08/17 21:04; Admin Dose 2 MG; Start 02/04/17 at 21:00 Famotidine (Pepcid Iv) 20 mg DAILY IV Last administered on 02/09/17 08:39; Admin Dose 20 MG; Start 02/04/17 at 21:30 Enoxaparin Sodium 30 mg 30 mg DAILY SC Last administered on 02/09/17 08:52; Admin Dose 30 MG; Start 02/05/17 at 09:00 Piperacillin Sod/ Tazobactam Sod 100 ml @ 200 mls/hr Q6 IVPB Last administered on 02/09/17 12:01; Admin Dose 200 MLS/HR; Start 02/05/17 at 00:00 Potassium Chloride/Sodium Chloride (KCl/NS) 1,020 ml @ 100 mls/hr [id number] IV Last administered on 02/09/17 04:37; Admin Dose 100 MLS/HR; Start 02/05/17 at 08:30 Lorazepam (Ativan) 1 mg HS PO Last administered on 02/08/17 21:05; Admin Dose 1 MG; Start 02/07/17 at 21:00 Multivitamins/ Minerals (Theragran-M) 1 tab DAILY PO Last administered on 08:39; Admin Dose 1 TAB; Start 02/07/17 at 18:30 Ascorbic Acid (Vitamin C) 500 mg BID PO Last administered on 02/09/17 08:38; Admin Dose 500 MG; Start 02/07/17 at 21:00 Zinc Sulfate (Zinc Sulfate) 220 mg DAILY PO Last administered on 02/09/17 08: 38; Admin Dose 220 MG; Start 02/08/17 at 09:00 Tramadol HCl (Ultram) 50 mg Q4 PRN PO PAIN Last administered on 02/07/17 23: 37; Admin Dose 50 MG; Start 02/07/17 at 23:00 Sodium Hypochlorite (Dakin'S (Dilute 1/40%)) 1 applic BID IRR Last administered on 02/09/17 08:38; Admin Dose 1 APPLIC; Start 02/08/17 at 09:00; Stop 02/17/17 at 08:59 Acetaminophen/ Hydrocodone Bitart ([place] (5/325)) 1 tab Q4H PRN PO PAIN Last administered on 02/09/17 00:40; Admin Dose 1 TAB; Start 02/08/17 at 12:30 Hydralazine HCl (Apresoline) 25 mg Q6H PRN PO SBP > 160 Last administered on 13:45; Admin Dose 25 MG; Start 02/08/17 at 14:00 Losartan Potassium (Cozaar) 25 mg BID PO Last administered on 02/09/17 08:43; Admin Dose 25 MG; Start 02/08/17 at 21:00 IV Flush 10 ml 10 ml PRN PRN IV IV PROTOCOL; Start 02/08/17 at 15:00 Vancomycin HCl/ Sodium Chloride (Vancocin/NS) 250 ml @ 83.333 mls/ hr Q12H IVPB Last administered on 02/09/17t 04:37; Admin Dose 83.333 MLS/HR; Start 02/09/17 at 04:00 Miscellaneous Information (*Rx Drug Level Order Reminder*) VANCOMYCIN TROUGH LEVEL... ONCE ONCE XX ; Start 02/10/17 at 03:00; Stop 02/10/17 at 03:01 MARIKA LEBRON Feb 09, 2017 12:43
[2017-02-09] MEDS ORDERED: BARIUM SULF 2% 450 ML BTL (BERRY SMOOTHIE) PO SCH (13:00)
--- NOTE | 2017-02-09 16:02 | PN ---
Date/Time of Note Date/Time of Note DATE: 02/09/17 TIME: 16:00 Assessment/Plan VTE Prophylaxis VTE Prophylaxis Intervention: SCD's Lines/Catheters IV [facility]ter Type (from [facility]): PICC Line Central line still needed: Yes Urinary Cath still in place: No Assessment/Plan Chief Complaint/Hosp Course Patient status post PICC line insertion last night, continues on vancomycin and Zosyn. Patient's complaints of diarrhea stool for C. difficile is negative. Remains in sinus rhythm, okay to transfer to [facility] Assessment/Plan -Sepsis with shock, resolving. Dr. Caicedo is following in infection disease consultation. -Anemia, status post blood transfusion. - Wound abscess. Status post I&D by Dr. Reyna. Continue current wound care and antibiotics. Continue vancomycin to cover coagulase-negative staph in wound culture. Dr. Reyna is following in general surgery consultation. - Status post total abdominal hysterectomy on 01/[address]keon at [facility]. -Hypertension, continue Cozaar. Further recommendations based on clinical course. Plan of care is discussed by Dr. Geronimo. Problems: Exam/Review of Systems Vital Signs Vitals Vital Signs Date Time Temp Pulse Resp B/P Pulse Ox O2 Delivery O2 Flow Rate FiO2 02/09/17 15:41 98.5 74 20 134/84 95 02/09/17 12:00 Room Air 02/05/17 16:45 2.0 Intake and Output 02/08/17 02/08/17 02/09/17 15:00 23:00 07:00 Intake Total 1350 ml 1000 ml 500 ml Balance 1350 ml 1000 ml 500 ml Exam Constitutional: alert, oriented Respiratory: normal air movement Cardiovascular: nl pulses Gastrointestinal: non-tender, soft Musculoskeletal: nl extremities to inspection Skin: other (Large lower abdominal wound) Results Result Diagram: 02/09/17 0617 02/09/17 0617 Results 24 hrs Laboratory Tests Test 02/09/17 06:17 White Blood Count 13.5 H Red Blood Count 3.67 L Hemoglobin 8.9 L Hematocrit 28.7 L Mean Corpuscular Volume 78.2 L Mean Corpuscular Hemoglobin 24.3 L Mean Corpuscular Hemoglobin Concent 31.0 L Red Cell Distribution Width 17.3 H Platelet Count 406 Mean Platelet Volume 11.3 H Neutrophils % Segmented Neutrophils % (Manual) 68 Band Neutrophils % (Manual) 5 H Lymphocytes % Lymphocytes % (Manual) 17 Monocytes % Monocytes % (Manual) 8 Eosinophils % Eosinophils % (Manual) 1 Basophils % Myelocytes % (Manual) 1 H Nucleated Red Blood Cells % 0.1 H Neutrophils # Neutrophils # (Manual) 9.3 H Band Neutrophils # 0.6 Absolute Lymphocytes (Manual) 2.2 Lymphocytes # Monocytes # Absolute Monocytes (Manual) 1.0 H Eosinophils # Basophils # Myelocytes # 0.1 H Nucleated Red Blood Cells # Platelet Estimate NORMAL Polychromasia 1+ Anisocytosis 1+ Microcytosis 1+ Sodium Level 142 Potassium Level 3.8 Chloride Level 111 H Carbon Dioxide Level 24 Anion Gap 11 Blood Urea Nitrogen 13 Creatinine 0.95 Glucose Level 77 Calcium Level 8.4 Medications Medications Current Medications Ondansetron HCl (Zofran Inj) 4 mg Q6H PRN IV NAUSEA AND/OR VOMITING Last administered on 02/09/17 10:33; Admin Dose 4 MG; Start 02/04/17 at 21:00 Acetaminophen (Tylenol Tab) 650 mg Q6H PRN PO PAIN LEVEL 1-3 OR FEVER Last administered on 02/09/17 12:07; Admin Dose 650 MG; Start 02/04/17 at 21:00 Morphine Sulfate (morphine) 2 mg Q4H PRN IV SEVERE PAIN LEVEL 7-10 Last administered on 02/08/17 21:04; Admin Dose 2 MG; Start 02/04/17 at 21:00 Famotidine (Pepcid Iv) 20 mg DAILY IV Last administered on 02/09/17 08:39; Admin Dose 20 MG; Start 02/04/17 at 21:30 Enoxaparin Sodium 30 mg 30 mg DAILY SC Last administered on 02/09/17 08:52; Admin Dose 30 MG; Start 02/05/17 at 09:00 Piperacillin Sod/ Tazobactam Sod 100 ml @ 200 mls/hr Q6 IVPB Last administered on 02/09/17 12:01; Admin Dose 200 MLS/HR; Start 02/05/17 at 00:00 Potassium Chloride/Sodium Chloride (KCl/NS) 1,020 ml @ 100 mls/hr [id number] IV Last administered on 02/09/17 04:37; Admin Dose 100 MLS/HR; Start 02/05/17 at 08:30 Lorazepam (Ativan) 1 mg HS PO Last administered on 02/08/17 21:05; Admin Dose 1 MG; Start 02/07/17 at 21:00 Multivitamins/ Minerals (Theragran-M) 1 tab DAILY PO Last administered on 08:39; Admin Dose 1 TAB; Start 02/07/17 at 18:30 Ascorbic Acid (Vitamin C) 500 mg BID PO Last administered on 02/09/17 08:38; Admin Dose 500 MG; Start 02/07/17 at 21:00 Zinc Sulfate (Zinc Sulfate) 220 mg DAILY PO Last administered on 02/09/17 08: 38; Admin Dose 220 MG; Start 02/08/17 at 09:00 Tramadol HCl (Ultram) 50 mg Q4 PRN PO PAIN Last administered on 02/07/17 23: 37; Admin Dose 50 MG; Start 02/07/17 at 23:00 Sodium Hypochlorite (Dakin'S (Dilute 1/40%)) 1 applic BID IRR Last administered on 02/09/17 08:38; Admin Dose 1 APPLIC; Start 02/08/17 at 09:00; Stop 02/17/17 at 08:59 Acetaminophen/ Hydrocodone Bitart ([place] (5/325)) 1 tab Q4H PRN PO PAIN Last administered on 02/09/17 13:04; Admin Dose 1 TAB; Start 02/08/17 at 12:30 Hydralazine HCl (Apresoline) 25 mg Q6H PRN PO SBP > 160 Last administered on 13:45; Admin Dose 25 MG; Start 02/08/17 at 14:00 Losartan Potassium (Cozaar) 25 mg BID PO Last administered on 02/09/17 08:43; Admin Dose 25 MG; Start 02/08/17 at 21:00 IV Flush 10 ml 10 ml PRN PRN IV IV PROTOCOL; Start 02/08/17 at 15:00 Vancomycin HCl/ Sodium Chloride (Vancocin/NS) 250 ml @ 83.333 mls/ hr Q12H IVPB Last administered on 02/09/17 04:37; Admin Dose 83.333 MLS/HR; Start 02/09/17 at 04:00 Miscellaneous Information (*Rx Drug Level Order Reminder*) VANCOMYCIN TROUGH LEVEL... ONCE ONCE XX ; Start 02/10/17 at 03:00; Stop 02/10/17 at 03:01 Acetaminophen/ Hydrocodone Bitart ([place] (5/325)) 2 tab Q4H PRN PO SEVERE PAIN LEVEL 7-10; Start 02/09/17 at 15:00 Hydralazine HCl (Apresoline) 10 mg Q6H PRN IV FOR SBP >170; Start 02/09/17 at 15:00 ANGY GONCALVES Feb 09, 2017 16:02
--- NOTE | 2017-02-09 16:34 | QN ---
Documentation Comment Reports decreased apetitie, Reports diarrhea with dark black stool. Has some nausea. passed flatus, could tolerate PO. Reports still drainage from the wound when she walks. Denies any chills or fever. Pain improved. Abdomen: Soft, appropriate tenderness in the left lower abdomen in the area of the open wound as well as some tendernss in the right side of the incision noted , Incision. there is about 5 cm area of wound opening in the left side lower abdomen, with normal granulation tissue, wound appears to be clean, has a wet to dry pack. Extremities: no calf tenderness, no click, no edema. no cord palpable Hematology - 72 Hrs Test 02/07/17 05:55 02/08/17 06:20 02/09/17 06:17 White Blood Count 12.210^3/ul (4.8-10.8) #H 13.810^3/ul (4.8-10.8) H 13.510^3/ul (4.8-10.8) H Red Blood Count 3.2910^6/ul (4.20-5.40) L 3.8210^6/ul (4.20-5.40) L 3.6710^6/ul (4.20-5.40) L Hemoglobin 7.4g/dl (12.0-16.0) L 9.2g/dl (12.0-16.0) #L 8.9g/dl (12.0-16.0) L Hematocrit 25.9% (37.0-47.0) L 30.2% (37.0-47.0) L 28.7% (37.0-47.0) L Mean Corpuscular Volume 78.7fl (82.0-101.0) L 79.1fl (82.0-101.0) L 78.2fl (82.0-101.0) L Mean Corpuscular Hemoglobin 22.5pg (29.0-33.0) L 24.1pg (29.0-33.0) L 24.3pg (29.0-33.0) L Mean Corpuscular Hemoglobin Concent 28.6g/dl (32.0-37.0) L 30.5g/dl (32.0-37.0) L 31.0g/dl (32.0-37.0) L Red Cell Distribution Width 17.3% (11.5-14.5) H 17.3% (11.5-14.5) H 17.3% (11.5-14.5) H Platelet Count 73075^3/UL (140-415) # 32602^3/UL (140-415) 37356^3/UL (140-415) Mean Platelet Volume 11.6fl (7.4-10.4) H 11.3fl (7.4-10.4) H 11.3fl (7.4-10.4) H Neutrophils % 68.5% (39.0-77.0) 63.6% (39.0-77.0) % (39.0-77.0) Lymphocytes % 14.1% (15.0-51.0) L 12.8% (15.0-51.0) L % (15.0-51.0) Monocytes % 5.6% (0.0-11.0) 7.1% (0.0-11.0) % (0.0-11.0) Eosinophils % 1.2% (0.0-7.0) 1.2% (0.0-7.0) % (0.0-7.0) Basophils % 0.5% (0.0-2.0) 0.9% (0.0-2.0) % (0.0-2.0) Nucleated Red Blood Cells % 0.0/100WBC (0.0-0.0) 0.1/100WBC (0.0-0.0) H 0.1/100WBC (0.0-0.0) H Neutrophils # 8.410^3/ul (1.6-7.5) H 8.810^3/ul (1.6-7.5) H 10^3/ul (1.6-7.5) Lymphocytes # 1.710^3/ul (0.8-2.9) 1.810^3/ul (0.8-2.9) 10^3/ul (0.8-2.9) Monocytes # 0.710^3/ul (0.3-0.9) 1.010^3/ul (0.3-0.9) H 10^3/ul (0.3-0.9) Eosinophils # 0.210^3/ul (0.0-0.5) 0.210^3/ul (0.0-0.5) 10^3/ul (0.0-0.5) Basophils # 0.110^3/ul (0.0-0.1) 0.110^3/ul (0.0-0.1) 10^3/ul (0.0-0.1) Nucleated Red Blood Cells # 0.010^3/ul (0.0-0.0) 0.010^3/ul (0.0-0.0) 10^3/ul (0.0-0.0) Polychromasia 1+ (0-0) 1+ (0-0) Ovalocytes 1+ (0-0) Segmented Neutrophils % (Manual) 68% (39-77) Band Neutrophils % (Manual) 5% (0-4) H Lymphocytes % (Manual) 17% (15-51) Monocytes % (Manual) 8% (0-11) Eosinophils % (Manual) 1% (0-7) Myelocytes % (Manual) 1% (0-0) H Neutrophils # (Manual) 9.310^3/ul (1.7-7.5) H Band Neutrophils # 0.610^3/ul (0.0-0.6) Absolute Lymphocytes (Manual) 2.210^3/ul (0.8-2.9) Absolute Monocytes (Manual) 1.010^3/ul (0.3-0.9) H Myelocytes # 0.110^3/ul (0.0-0.0) H Platelet Estimate NORMAL Anisocytosis 1+ (0-0) Microcytosis 1+ (0-0) Chemistry Test 02/07/17 05:55 02/08/17 06:20 02/09/17 06:17 Sodium Level 143mmol/L (135-144) 142mmol/L (135-144) 142mmol/L (135-144) Potassium Level 4.3mmol/L (3.5-5.1) 4.1mmol/L (3.5-5.1) 3.8mmol/L (3.5-5.1) Chloride Level 117mmol/L (97-110) H 113mmol/L (97-110) H 111mmol/L (97-110) H Carbon Dioxide Level 19mmol/L (21-31) L 22mmol/L (21-31) 24mmol/L (21-31) Anion Gap 11 (8-16) 11 (8-16) 11 (8-16) Blood Urea Nitrogen 12mg/dl (7-20) 13mg/dl (7-20) 13mg/dl (7-20) Creatinine 0.85mg/dl (0.44-1.00) 0.84mg/dl (0.44-1.00) 0.95mg/dl (0.44-1.00) Glucose Level 87mg/dl (70-220) 84mg/dl (70-220) 77mg/dl (70-220) Calcium Level 8.2mg/dl (8.4-10.2) L 8.5mg/dl (8.4-10.2) 8.4mg/dl (8.4-10.2) Assessment s/p DILLON Abdominal wall abscess, draining and s/p debridement , now being followed by wet to dry dressing Sepsis, on Abx,broad spectrum. following up with ID, improved Diarrhea, C- Diff negative Black dark stool. recommended Fecal occult blood testing Follow up with repeat CT, Continued management by ID Patient still spiking while on abx. Recommended Blood culture when spikes follow up with ID and folllow up with repeat cxs Continue IV abx EVETTE RUSSELL MD Feb 09, 2017 16:34
[2017-02-09] MEDS: hydrALAzine 20 MG INJ IV PRN (19:58)
[2017-02-09] MEDS: LOSARTAN 50 MG TAB PO SCH (20:56)
[2017-02-09] MEDS: morphine 2 MG INJ IV PRN (21:05)
[2017-02-09] MEDS: LORAZEPAM 1 MG TAB PO SCH (22:20)
[2017-02-10] VITALS (8 sets, daily range): BP systolic 148–201; BP diastolic 76–99; PULSE 70–83; RESP 18
[2017-02-10] MEDS: PIPER-TAZO 3.375 GM IV (PMX) 100 ML IVPB SCH ×3 (00:15→11:41)
[2017-02-10] MEDS: ACETAMINOPHEN 325 MG TAB PO PRN (01:10)
[2017-02-10 03:23] LABS: ABNORMAL IP MESSAGE 1; BASOPHIL # 0.1 10^3/ul (0.0-0.1); BASOPHILS % 0.5 % (0.0-2.0); EOSINOPHILS # 0.2 10^3/ul (0.0-0.5); EOSINOPHILS % 1.6 % (0.0-7.0); HEMATOCRIT 28.7 % (37.0-47.0); LYMPHOCYTES # 1.8 10^3/ul (0.8-2.9); LYMPHOCYTES % 12.4 % (15.0-51.0); MEAN CORPUSCULAR HEMOGLOBIN 24.5 pg (29.0-33.0); MEAN CORPUSCULAR HGB CONC 31.4 g/dl (32.0-37.0); MEAN PLATELET VOLUME 10.5 fl (7.4-10.4); MONOCYTE # 1.2 10^3/ul (0.3-0.9); MONOCYTES % 8.4 % (0.0-11.0); NEUTROPHIL # 9.8 10^3/ul (1.6-7.5); NEUTROPHILS % 67.1 % (39.0-77.0); PLATELET COUNT 387 10^3/UL (140-415); RED BLOOD COUNT 3.68 10^6/ul (4.20-5.40); RED CELL DISTRIBUTION WIDTH 17.2 % (11.5-14.5); WHITE BLOOD COUNT 14.6 10^3/ul (4.8-10.8)
[2017-02-10 03:32] LABS: POSITIVE DIFF @See below
[2017-02-10 03:55] LABS: CALCIUM 7.8 mg/dl (8.4-10.2); CREATININE 0.94 mg/dl (0.44-1.00); POTASSIUM 3.8 mmol/L (3.5-5.1)
[2017-02-10] MEDS: VANCOMYCIN 1.25 GM in SOD CHLORIDE 0.9% 250 ML IVPB SCH (04:15)
[2017-02-10] MEDS: MULTIVITAMINS/MINERALS TAB PO SCH (08:23)
[2017-02-10] MEDS: ZINC SULFATE 220 MG CAP PO SCH (08:23)
[2017-02-10] MEDS: FAMOTIDINE 20 MG INJ IV SCH (08:23)
[2017-02-10] MEDS: ASCORBIC ACID 500 MG TAB PO SCH ×2 (08:24→21:19)
[2017-02-10] MEDS: LOSARTAN 50 MG TAB PO SCH ×2 (08:24→21:20)
[2017-02-10] MEDS: ENOXAPARIN 30 MG/0.3 ML SYG SC SCH (08:33)
[2017-02-10] MEDS: SODIUM HYPOCHLORITE 1/40% 1L IRRIG IRR SCH ×2 (09:00→22:03)
--- NOTE | 2017-02-10 11:26 | CONS ---
Date/Time of Note Date/Time of Note DATE: 02/10/17 TIME: 11:26 Assessment/Plan Assessment/Plan Chief Complaint/Hosp Course 1. Large subcutaneous and rectus abdominous anterior fluid collection measuring 19 cm transverse by 4.6 cm AP by 6.9 cm in superior inferior dimensions. Differential to include abscess, infected seroma or hematoma. 2. s/p hysterectomy R: will discuss with rest of team cont. abx for now consider repeat imaging and drainage if needed Problems: Consultation Date/Type/Reason Admit Date/Time Feb 04, 2017 at 21:02 Initial Consult Date 02/08/17 Type of Consultation: id Referring Provider: ANGY GONCALVES Exam/Review of Systems Vital Signs Vitals Vital Signs Date Time Temp Pulse Resp B/P Pulse Ox O2 Delivery O2 Flow Rate FiO2 02/10/17 08:03 98.0 75 18 170/81 92 02/09/17 12:00 Room Air Intake and Output 02/09/17 02/09/17 02/10/17 15:00 23:00 07:00 Intake Total 1150 ml 1550 ml Balance 1150 ml 1550 ml Exam Constitutional: alert, oriented, well developed Eyes: EOMI, PERRL, nl conjunctiva, nl lids, nl sclera Neck: non-tender, supple Respiratory: clear to auscultation, normal air movement Cardiovascular: nl pulses, regular rate and rhythm Results Result Diagram: 02/10/1731202/10/17 0310 Results 24 hrs Laboratory Tests Test 02/10/17 03:10 02/10/17 03:13 Sodium Level 143 Potassium Level 3.8 Chloride Level 109 Carbon Dioxide Level 24 Anion Gap 14 Blood Urea Nitrogen 10 Creatinine 0.94 Glucose Level 86 Calcium Level 7.8 L White Blood Count 14.6 H Red Blood Count 3.68 L Hemoglobin 9.0 L Hematocrit 28.7 L Mean Corpuscular Volume 78.0 L Mean Corpuscular Hemoglobin 24.5 L Mean Corpuscular Hemoglobin Concent 31.4 L Red Cell Distribution Width 17.2 H Platelet Count 387 Mean Platelet Volume 10.5 H Neutrophils % 67.1 Lymphocytes % 12.4 L Monocytes % 8.4 Eosinophils % 1.6 Basophils % 0.5 Nucleated Red Blood Cells % 0.0 Neutrophils # 9.8 H Lymphocytes # 1.8 Monocytes # 1.2 H Eosinophils # 0.2 Basophils # 0.1 Nucleated Red Blood Cells # 0.0 Vancomycin Level Trough 17.2 Medications Medications Current Medications Ondansetron HCl (Zofran Inj) 4 mg Q6H PRN IV NAUSEA AND/OR VOMITING Last administered on 02/09/17 21:05; Admin Dose 4 MG; Start 02/04/17 at 21:00 Acetaminophen (Tylenol Tab) 650 mg Q6H PRN PO PAIN LEVEL 1-3 OR FEVER Last administered on 02/10/17 01:10; Admin Dose 650 MG; Start 02/04/17 at 21:00 Morphine Sulfate (morphine) 2 mg Q4H PRN IV SEVERE PAIN LEVEL 7-10 Last administered on 02/09/17 21:05; Admin Dose 2 MG; Start 02/04/17 at 21:00 Famotidine (Pepcid Iv) 20 mg DAILY IV Last administered on 02/10/17 08:23; Admin Dose 20 MG; Start 02/04/17 at 21:30 Enoxaparin Sodium 30 mg 30 mg DAILY SC Last administered on 02/10/17 08:33; Admin Dose 30 MG; Start 02/05/17 at 09:00 Piperacillin Sod/ Tazobactam Sod 100 ml @ 200 mls/hr Q6 IVPB Last administered on 02/10/17 08:23; Admin Dose 200 MLS/HR; Start 02/05/17 at 00:00 Potassium Chloride/Sodium Chloride (KCl/NS) 1,020 ml @ 100 mls/hr [id number] IV Last administered on 02/09/17 22:20; Admin Dose 100 MLS/HR; Start 02/05/17 at 08:30 Lorazepam (Ativan) 1 mg HS PO Last administered on 02/09/17 22:20; Admin Dose 1 MG; Start 02/07/17 at 21:00 Multivitamins/ Minerals (Theragran-M) 1 tab DAILY PO Last administered on 08:23; Admin Dose 1 TAB; Start 02/07/17 at 18:30 Ascorbic Acid (Vitamin C) 500 mg BID PO Last administered on 02/10/17 08:24; Admin Dose 500 MG; Start 02/07/17 at 21:00 Zinc Sulfate (Zinc Sulfate) 220 mg DAILY PO Last administered on 02/10/17 08: 23; Admin Dose 220 MG; Start 02/08/17 at 09:00 Tramadol HCl (Ultram) 50 mg Q4 PRN PO PAIN Last administered on 02/07/17 23: 37; Admin Dose 50 MG; Start 02/07/17 at 23:00 Sodium Hypochlorite (Dakin'S (Dilute 1/40%)) 1 applic BID IRR Last administered on 02/09/17 21:36; Admin Dose 1 APPLIC; Start 02/08/17 at 09:00; Stop 02/17/17 at 08:59 Acetaminophen/ Hydrocodone Bitart ([place] (5/325)) 1 tab Q4H PRN PO PAIN Last administered on 02/09/17 13:04; Admin Dose 1 TAB; Start 02/08/17 at 12:30 IV Flush 10 ml 10 ml PRN PRN IV IV PROTOCOL; Start 02/08/17 at 15:00 Vancomycin HCl/ Sodium Chloride (Vancocin/NS) 250 ml @ 83.333 mls/ hr Q12H IVPB Last administered on 02/10/17 04:15; Admin Dose 83.333 MLS/HR; Start 02/09/17 at 04:00 Acetaminophen/ Hydrocodone Bitart ([place] (5/325)) 2 tab Q4H PRN PO SEVERE PAIN LEVEL 7-10; Start 02/09/17 at 15:00 Hydralazine HCl (Apresoline) 10 mg Q6H PRN IV FOR SBP >170 Last administered on 02/09/17 19:58; Admin Dose 10 MG; Start 02/09/17 at 15:00 Losartan Potassium (Cozaar) 50 mg BID PO Last administered on 02/10/17 08:24; Admin Dose 50 MG; Start 02/09/17 at 21:00 BETTINA GOINS MD Feb 10, 2017 11:26
[2017-02-10] MEDS: hydrALAzine 20 MG INJ IV PRN ×2 (11:42→14:38)
[2017-02-10] MEDS: AMLODIPINE 10 MG TAB PO SCH (13:35)
[2017-02-10] MEDS ORDERED: IOHEXOL 300MG/ML 150 ML BTL ONE (13:50)
[2017-02-10] MEDS ORDERED: SOD CHLORIDE 0.9% 100 ML ONE (13:50)
[2017-02-10] MEDS: SOD CHLORIDE 0.45% 1,000 ML IV SCH (14:28)
[2017-02-10] MEDS: SUMATRIPTAN 6 MG/0.5 ML INJ SC PRN ×2 (14:28→16:45)
--- NOTE | 2017-02-10 14:30 | RADRPT ---
PROCEDURE: CT abdomen and pelvis with contrast. CLINICAL INDICATION: Abscess TECHNIQUE: CT scan of the abdomen and pelvis without oral contrast was performed and is reconstruc hong at 2.5 mm contiguous axial intervals from the dome of the diaphragm to the inferior pubic rami.. The patient was scanned with intravenous contrast. Sagittal and coronal reformatted images were o btained from the axial source images. The calculated radiation dose measures 1216 mGy centimeters. T he CTDI measures and 21 mGy. Individualized dose optimization technique was used for the performance of this exam. This included 1. Automated exposure control. 2. Adjustment of the mA and / or kV according to the patient's size. 3. Use of iterative reconstructed technique. COMPARISON: CT abdomen pelvis February 04, 2017 FINDINGS: There has been interval development of small bilateral pleural effusions, right greater than left wi th bibasilar atelectasis. No alveolar infiltrate or mass is seen. The liver is of normal size, contour and attenuation with no intrahepatic ductal dilatation. Noted i s a 6.7 by 4.6 by 4.6 cm noncalcified mass on the inferior aspect of the right lobe of the liver. Th ere is a central region of diminished attenuation measuring approximately 40 HU with a thin nodular noncalcified rim. There is questionable peripheral pooling of contrast to suggest typical hemangioma . This mass is indeterminate. This may represent an abscess, however, there is no gas present. Gallb ladder has been removed. No splenic, adrenal or pancreatic abnormalities present. Kidneys enhance symmetrically and are of normal size and contour. No hydronephrosis, calculus or m asses seen. Ureters are of normal course and caliber with no stone. No bladder mass or stone is pr esent. Uterus is been removed. No adnexal mass is present. There is no aneurysm. No adenopathy is present. No bowel mass or obstruction is present. The appendix is normal. No phlegmon or pneumoperitoneum is visualized. There has been interval development of a small volume of ascites. The patient has un dergone interval incision and drainage of previously noted complex fluid collection in the anterior pelvic wall. There are are small pockets of gas remaining but there is no residual abscess seen. Senescent degenerative changes are seen at L5-S1. IMPRESSION: Interval successful incision and drainage of previously noted abscess anterior pelvic wall. Development small pleural effusions with bibasilar atelectasis. Development small volume ascites. 6.7 x 4.6 x 4.6 cm indeterminate mass in the inferior aspect right lobe of the liver not appreciated on prior study without intravenous contrast. This mass is indeterminate. Question hemangioma. Quest ion abscess. Hepatoma cannot be ruled out. Dedicated dynamic three-phase CT or MRI is suggested for further evaluation. Post cholecystectomy. L5-S1 degenerative disc disease. .Gurpreet Jimenez MD, MD Date Time Electronically viewed and signed by .Gurpreet Jimenez MD, on 02/10/2017 14:30 .A/
[2017-02-10] MEDS: ONDANSETRON 4 MG INJ IV PRN ×2 (14:39→21:21)
[2017-02-10] MEDS: VANCOMYCIN 1 GM in NS 250 ML IVPB SCH (16:35)
[2017-02-10] MEDS: morphine 2 MG INJ IV PRN ×2 (16:45→21:21)
--- NOTE | 2017-02-10 16:52 | PN ---
Date/Time of Note Date/Time of Note DATE: 02/10/17 TIME: 16:48 Assessment/Plan Lines/Catheters IV Catheter Type (from [facility]): PICC Line Urinary Cath still in place: No Assessment/Plan Assessment/Plan - Sepsis with shock, resolving. Dr. Caicedo is following in infection disease consultation. - Anemia, status post blood transfusion. - Wound abscess. Status post I&D by Dr. Reyna. Continue current wound care and antibiotics. Continue vancomycin to cover coagulase-negative staph in wound culture. Dr. Reyna is following in general surgery consultation. - Status post total abdominal hysterectomy on 01/[address] Mckeon at [facility]. - Hypertension, continue Cozaar. Further recommendations based on clinical course. Plan of care is discussed by Dr. Geronimo. Subjective 24 Hr Interval Summary Free Text/Dictation CT -to be reviewed by Dr Salazar- patient c/o abdominal pain- refuses morphine, c /o migrains- imitrex works.. BP stil elevated- Staff dw Dr Schafer. Respiratory: no complaints Cardiovascular: no complaints Gastrointestinal: pain Musculoskeletal: no complaints Skin: other Neurologic: headache Exam/Review of Systems Vital Signs Vitals Vital Signs Date Time Temp Pulse Resp B/P Pulse Ox O2 Delivery O2 Flow Rate FiO2 02/10/17 14:25 98.0 78 18 180/88 97 02/10/17 12:45 Room Air Intake and Output 02/09/17 02/09/17 02/10/17 15:00 23:00 07:00 Intake Total 1150 ml 1550 ml Balance 1150 ml 1550 ml Exam Constitutional: alert Respiratory: diminished breath sounds Cardiovascular: nl pulses, other (s1s2) Gastrointestinal: soft, tender Musculoskeletal: nl extremities to inspection Neurological: nl speech Results Result Diagram: 02/10/1731202/10/17 031 Results 24 hrs Laboratory Tests Test 02/10/17 03:10 02/10/17 03:13 Sodium Level 143 Potassium Level 3.8 Chloride Level 109 Carbon Dioxide Level 24 Anion Gap 14 Blood Urea Nitrogen 10 Creatinine 0.94 Glucose Level 86 Calcium Level 7.8 L White Blood Count 14.6 H Red Blood Count 3.68 L Hemoglobin 9.0 L Hematocrit 28.7 L Mean Corpuscular Volume 78.0 L Mean Corpuscular Hemoglobin 24.5 L Mean Corpuscular Hemoglobin Concent 31.4 L Red Cell Distribution Width 17.2 H Platelet Count 387 Mean Platelet Volume 10.5 H Neutrophils % 67.1 Lymphocytes % 12.4 L Monocytes % 8.4 Eosinophils % 1.6 Basophils % 0.5 Nucleated Red Blood Cells % 0.0 Neutrophils # 9.8 H Lymphocytes # 1.8 Monocytes # 1.2 H Eosinophils # 0.2 Basophils # 0.1 Nucleated Red Blood Cells # 0.0 Vancomycin Level Trough 17.2 Medications Medications Current Medications Ondansetron HCl (Zofran Inj) 4 mg Q6H PRN IV NAUSEA AND/OR VOMITING Last administered on 02/10/17 14:39; Admin Dose 4 MG; Start 02/04/17 at 21:00 Acetaminophen (Tylenol Tab) 650 mg Q6H PRN PO PAIN LEVEL 1-3 OR FEVER Last administered on 02/10/17 01:10; Admin Dose 650 MG; Start 02/04/17 at 21:00 Morphine Sulfate (morphine) 2 mg Q4H PRN IV SEVERE PAIN LEVEL 7-10 Last administered on 02/10/17 16:45; Admin Dose 2 MG; Start 02/04/17 at 21:00 Famotidine (Pepcid Iv) 20 mg DAILY IV Last administered on 02/10/17 08:23; Admin Dose 20 MG; Start 02/04/17 at 21:30 Enoxaparin Sodium 30 mg 30 mg DAILY SC Last administered on 02/10/17 08:33; Admin Dose 30 MG; Start 02/05/17 at 09:00 Piperacillin Sod/ Tazobactam Sod (Zosyn 3.375gm/ 100 ml (Pmx)) 100 ml @ 200 mls /hr Q6 IVPB Last administered on 02/10/17 11:41; Admin Dose 200 MLS/HR; Start 02/05/17 at 00:00; Stop 02/10/17 at 17:59 Lorazepam (Ativan) 1 mg HS PO Last administered on 02/09/17 22:20; Admin Dose 1 MG; Start 02/07/17 at 21:00 Multivitamins/ Minerals (Theragran-M) 1 tab DAILY PO Last administered on 08:23; Admin Dose 1 TAB; Start 02/07/17 at 18:30 Ascorbic Acid (Vitamin C) 500 mg BID PO Last administered on 02/10/17 08:24; Admin Dose 500 MG; Start 02/07/17 at 21:00 Zinc Sulfate (Zinc Sulfate) 220 mg DAILY PO Last administered on 02/10/17 08: 23; Admin Dose 220 MG; Start 02/08/17 at 09:00 Tramadol HCl (Ultram) 50 mg Q4 PRN PO PAIN Last administered on 02/07/17 23: 37; Admin Dose 50 MG; Start 02/07/17 at 23:00 Sodium Hypochlorite (Dakin'S (Dilute 1/40%)) 1 applic BID IRR Last administered on 02/09/17 21:36; Admin Dose 1 APPLIC; Start 02/08/17 at 09:00; Stop 02/17/17 at 08:59 Acetaminophen/ Hydrocodone Bitart ([place] (5/325)) 1 tab Q4H PRN PO PAIN Last administered on 02/09/17 13:04; Admin Dose 1 TAB; Start 02/08/17 at 12:30 IV Flush (NS 10 ml) 10 ml PRN PRN IV IV PROTOCOL; Start 02/08/17 at 15:00 Acetaminophen/ Hydrocodone Bitart ([place] (5/325)) 2 tab Q4H PRN PO SEVERE PAIN LEVEL 7-10; Start 02/09/17 at 15:00 Hydralazine HCl (Apresoline) 10 mg Q6H PRN IV FOR SBP >170 Last administered on 02/10/17 14:38; Admin Dose 10 MG; Start 02/09/17 at 15:00 Losartan Potassium (Cozaar) 50 mg BID PO Last administered on 02/10/17 08:24; Admin Dose 50 MG; Start 02/09/17 at 21:00 Sumatriptan Succinate (Imitrex) 6 mg PRN PRN SC HEADACHE Last administered on 02/10/17 16:45; Admin Dose 6 MG; Start 02/10/17 at 13:30 Amlodipine Besylate 10 mg 10 mg DAILY PO Last administered on 02/10/17 13:35; Admin Dose 10 MG; Start 02/10/17 at 13:30 Sodium Chloride 1,000 ml @ 60 mls/hr [id number] IV Last administered on 14:28; Admin Dose 60 MLS/HR; Start 02/10/17 at 13:30 Vancomycin HCl 250 ml @ 125 mls/hr Q12H IVPB Last administered on 02/10/17 16 :35; Admin Dose 125 MLS/HR; Start 02/10/17 at 17:00 Piperacillin Sod/ Tazobactam Sod (Zosyn 3.375gm/ 50 ml (Pmx)) 50 ml @ 100 mls/ hr Q6 IVPB ; Start 02/10/17 at 18:00 MARIKA LEBRON Feb 10, 2017 16:52
--- NOTE | 2017-02-10 17:58 | PN ---
Date/Time of Note Date/Time of Note DATE: 02/10/17 TIME: 17:56 Assessment/Plan Lines/Catheters IV Catheter Type (from Nrs): PICC Line Clifford in Place (from Nrs): No Assessment/Plan Assessment/Plan Hospital day #4 from abdominal wound infection Wound infection resolving, no active infection on exam Afebrile for the past 72 hour. However, still with elevated white count. Source not likely from wound Subjective 24 Hr Interval Summary Additional Comments Patient having migraines. Still nauseous. Unable to tolerate p.o. Having difficulty getting out of bed. Exam/Review of Systems Vital Signs Vitals Vital Signs Date Time Temp Pulse Resp B/P Pulse Ox O2 Delivery O2 Flow Rate FiO2 02/10/17 14:25 98.0 78 18 180/88 97 02/10/17 12:45 Room Air Intake and Output 02/09/17 02/09/17 02/10/17 15:00 23:00 07:00 Intake Total 1150 ml 1550 ml Balance 1150 ml 1550 ml Exam Constitutional: alert, oriented, well developed Psych: no complaints Head: normocephalic Eyes: nl conjunctiva ENMT: nl external ears & nose Neck: jvd, supple Cardiovascular: regular rate and rhythm Skin: other (Wound -dressing change, no purulent fluid, no erythema or induration) Results Result Diagram: 02/10/1731202/10/17309 JOVANNA PETERS MD Feb 10, 2017 17:58
[2017-02-10] MEDS: PIPER-TAZO 3.375 GM IV (PMX) 50 ML IVPB SCH (18:42)
[2017-02-10] MEDS ORDERED: KETOROLAC 30 MG INJ IV STA (19:24)
[2017-02-10] MEDS: LORAZEPAM 1 MG TAB PO SCH (22:03)
[2017-02-11] MEDS: PIPER-TAZO 3.375 GM IV (PMX) 50 ML IVPB SCH ×5 (00:04→23:35)
[2017-02-11 02:00] VITALS: BP 147/72; RESP 18
[2017-02-11] MEDS: VANCOMYCIN 1 GM in NS 250 ML IVPB SCH ×2 (04:58→16:48)
[2017-02-11] MEDS: SOD CHLORIDE 0.45% 1,000 ML IV SCH ×2 (06:10→23:35)
[2017-02-11 06:35] VITALS: BP 142/66; PULSE 70
[2017-02-11] MEDS: HYDROCODONE/APAP (5/325) TAB PO PRN (06:35)
[2017-02-11 08:08] VITALS: BP 129/60; RESP 18
[2017-02-11] MEDS: LOSARTAN 50 MG TAB PO SCH ×2 (08:35→21:06)
[2017-02-11] MEDS: ZINC SULFATE 220 MG CAP PO SCH (08:35)
[2017-02-11] MEDS: AMLODIPINE 10 MG TAB PO SCH (08:35)
[2017-02-11] MEDS: ASCORBIC ACID 500 MG TAB PO SCH ×2 (08:36→21:02)
[2017-02-11] MEDS: ENOXAPARIN 30 MG/0.3 ML SYG SC SCH (08:38)
[2017-02-11] MEDS: MULTIVITAMINS/MINERALS TAB PO SCH (08:39)
[2017-02-11] MEDS: FAMOTIDINE 20 MG INJ IV SCH (11:51)
[2017-02-11] MEDS: SODIUM HYPOCHLORITE 1/40% 1L IRRIG IRR SCH ×2 (11:52→21:06)
[2017-02-11] MEDS: morphine 2 MG INJ IV PRN ×2 (11:53→21:02)
[2017-02-11] MEDS: ONDANSETRON 4 MG INJ IV PRN ×2 (12:03→21:02)
[2017-02-11 14:55] VITALS: BP 133/73; RESP 18
[2017-02-11] MEDS: SUMATRIPTAN 6 MG/0.5 ML INJ SC PRN (15:35)
--- NOTE | 2017-02-11 17:59 | PN ---
Date/Time of Note Date/Time of Note DATE: 02/11/17 TIME: 17:47 Assessment/Plan VTE Prophylaxis VTE Prophylaxis Intervention: SCD's Lines/Catheters IV Catheter Type (from Nrs): PICC Line Central line still needed: Yes Urinary Cath still in place: No Assessment/Plan Chief Complaint/Hosp Course Patient complains of generalized weakness, poor appetite. Patient with persistent leukocytosis. Dr. Lr is asked to see patient in gastroenterology consultation Assessment/Plan -Liver mass per CT from 02/10. Liver abscess? Continue current antibiotics. Follow-up ID and surgical recommendations. -Sepsis with shock, resolving. Dr. Caicedo is following in infection disease consultation. -Anemia, status post blood transfusion. - Wound abscess. Status post I&D by Dr. Reyna. Continue current wound care and antibiotics. Dr. Reyna is following in general surgery consultation. - Status post total abdominal hysterectomy on 01/[address] Mckeon at [facility]. - Hypertension, continue Cozaar, Coreg and Norvasc. Further recommendations based on clinical course. Plan of care is discussed by Dr. Geronimo. Problems: Exam/Review of Systems Vital Signs Vitals Vital Signs Date Time Temp Pulse Resp B/P Pulse Ox O2 Delivery O2 Flow Rate FiO2 02/11/17 14:55 97.8 73 18 133/73 93 02/10/17 12:45 Room Air Intake and Output 02/10/17 02/10/17 02/11/17 15:00 23:00 07:00 Intake Total 1100 ml 950 ml 550 ml Output Total 1140 ml Balance 1100 ml -190 ml 550 ml Exam Constitutional: alert, oriented Respiratory: normal air movement Cardiovascular: nl pulses Gastrointestinal: non-tender, soft Musculoskeletal: nl extremities to inspection Skin: other (Large lower abdominal wound) Results Result Diagram: 02/10/1731202/10/17 0310 Medications Medications Current Medications Ondansetron HCl (Zofran Inj) 4 mg Q6H PRN IV NAUSEA AND/OR VOMITING Last administered on 02/11/17 12:03; Admin Dose 4 MG; Start 02/04/17 at 21:00 Acetaminophen (Tylenol Tab) 650 mg Q6H PRN PO PAIN LEVEL 1-3 OR FEVER Last administered on 02/10/17 01:10; Admin Dose 650 MG; Start 02/04/17 at 21:00 Morphine Sulfate (morphine) 2 mg Q4H PRN IV SEVERE PAIN LEVEL 7-10 Last administered on 02/11/17 11:53; Admin Dose 2 MG; Start 02/04/17 at 21:00 Enoxaparin Sodium (Lovenox) 30 mg DAILY SC Last administered on 02/11/17 08:38 ; Admin Dose 30 MG; Start 02/05/17 at 09:00 Lorazepam (Ativan) 1 mg HS PO Last administered on 02/10/17 22:03; Admin Dose 1 MG; Start 02/07/17 at 21:00 Multivitamins/ Minerals (Theragran-M) 1 tab DAILY PO Last administered on 08:39; Admin Dose 1 TAB; Start 02/07/17 at 18:30 Ascorbic Acid (Vitamin C) 500 mg BID PO Last administered on 02/11/17 08:36; Admin Dose 500 MG; Start 02/07/17 at 21:00 Zinc Sulfate (Zinc Sulfate) 220 mg DAILY PO Last administered on 02/11/17 08: 35; Admin Dose 220 MG; Start 02/08/17 at 09:00 Tramadol HCl (Ultram) 50 mg Q4 PRN PO PAIN Last administered on 02/07/17 23: 37; Admin Dose 50 MG; Start 02/07/17 at 23:00 Sodium Hypochlorite (Dakin'S (Dilute 1/40%)) 1 applic BID IRR Last administered on 02/11/17 11:52; Admin Dose 1 APPLIC; Start 02/08/17 at 09:00; Stop 02/17/17 at 08:59 Acetaminophen/ Hydrocodone Bitart ([place] (5/325)) 1 tab Q4H PRN PO PAIN Last administered on 02/09/17 13:04; Admin Dose 1 TAB; Start 02/08/17 at 12:30 IV Flush (NS 10 ml) 10 ml PRN PRN IV IV PROTOCOL; Start 02/08/17 at 15:00 Acetaminophen/ Hydrocodone Bitart ([place] (5/325)) 2 tab Q4H PRN PO SEVERE PAIN LEVEL 7-10 Last administered on 02/11/17 06:35; Admin Dose 2 TAB; Start at 15:00 Hydralazine HCl (Apresoline) 10 mg Q6H PRN IV FOR SBP >170 Last administered on 02/10/17 14:38; Admin Dose 10 MG; Start 02/09/17 at 15:00 Losartan Potassium (Cozaar) 50 mg BID PO Last administered on 02/11/17 08:35; Admin Dose 50 MG; Start 02/09/17 at 21:00 Sumatriptan Succinate (Imitrex) 6 mg PRN PRN SC HEADACHE Last administered on 02/11/17 15:35; Admin Dose 6 MG; Start 02/10/17 at 13:30 Amlodipine Besylate 10 mg 10 mg DAILY PO Last administered on 02/11/17 08:35; Admin Dose 10 MG; Start 02/10/17 at 13:30 Sodium Chloride 1,000 ml @ 60 mls/hr [id number] IV Last administered on 14:28; Admin Dose 60 MLS/HR; Start 02/10/17 at 13:30 Vancomycin HCl 250 ml @ 125 mls/hr Q12H IVPB Last administered on 02/11/17 16 :48; Admin Dose 125 MLS/HR; Start 02/10/17 at 17:00 Piperacillin Sod/ Tazobactam Sod (Zosyn 3.375gm/ 50 ml (Pmx)) 50 ml @ 100 mls/ hr Q6 IVPB Last administered on 02/11/17 11:53; Admin Dose 100 MLS/HR; Start 02/10/17 at 18:00 Carvedilol (Coreg) 6.25 mg BID PO Last administered on 02/11/17 08:36; Admin Dose 6.25 MG; Start 02/10/17 at 21:00 Miscellaneous Information (*Rx Drug Level Order Reminder*) 1 ONCE ONCE XX ; Start 02/12/17 at 04:00; Stop 02/12/17 at 04:01 Famotidine (Pepcid) 20 mg DAILY PO ; Start 02/12/17 at 09:00 ANGY GONCALVES Feb 11, 2017 17:59
--- NOTE | 2017-02-11 18:32 | CONS ---
Date/Time of Note Date/Time of Note DATE: 02/11/17 TIME: 18:19 Assessment/Plan Assessment/Plan Chief Complaint/Hosp Course - Large subcutaneous and rectus abdominous anterior fluid collection measuring 19 cm transverse by 4.6 cm AP by 6.9 cm in superior inferior dimensions. Differential to include abscess, infected seroma or hematoma. S/p spontaneous drainage and suction 02/05/2017. Cx + CoNS and GHS - S/p hysterectomy 01/25/2017 at [facility] - 6.7 x 4.6 x 4.6 cm indeterminate mass in the inferior aspect right lobe of the liver not appreciated on prior study without intravenous contrast. Question hemangioma, abscess, hepatoma - Persistent leukocytosis likely reactive 2/2 migraine (remains afebrile) Recommendations: - continue vancomycin and pip/tazo for now - consider dedicated dynamic three-phase CT or MRI for further evaluation; await GI input - trend WBC Management d/w pt, her spouse/family, BRENDAN Medina and Dr. Caicedo Problems: Consultation Date/Type/Reason Admit Date/Time Feb 04, 2017 at 21:02 Initial Consult Date 02/08/17 Type of Consultation: Infectious Disease Referring Provider: ANGY GONCALVES 24 HR Interval Summary Free Text/Dictation Had severe migraine yesterday after CT abd/pelvis with contrast with decreased appetite and nausea which is now improving. "I just ate a Big Mac". C/o lower abdominal soreness/pain rating 5/10. Denies n/v/d, dysuria. GI consult pending for indeterminate liver mass seen on CT. Exam/Review of Systems Vital Signs Vitals Vital Signs Date Time Temp Pulse Resp B/P Pulse Ox O2 Delivery O2 Flow Rate FiO2 02/11/17 14:55 97.8 73 18 133/73 93 02/10/17 12:45 Room Air Intake and Output 02/10/17 02/10/17 02/11/17 15:00 23:00 07:00 Intake Total 1100 ml 950 ml 550 ml Output Total 1140 ml Balance 1100 ml -190 ml 550 ml Exam Constitutional: alert, oriented, well developed Psych: nl mood/affect Head: atraumatic, normocephalic Eyes: nl sclera ENMT: nl external ears & nose Neck: supple Respiratory: clear to auscultation, normal air movement Cardiovascular: nl pulses, regular rate and rhythm Gastrointestinal: other (LLQ dressing c/d/i), soft, surgical scars (well approximated) Musculoskeletal: nl extremities to inspection Extremities: edema (trace BLE edema), normal pulses Neurological: nl mental status, nl speech Skin: nl turgor, other (Wound with dressing intact - no purulent fluid, erythema or induration noted when dressing was partially removed for assessment) Results Result Diagram: 02/10/173 02/10/17 0310 Medications Medications Current Medications Ondansetron HCl (Zofran Inj) 4 mg Q6H PRN IV NAUSEA AND/OR VOMITING Last administered on 02/11/17 12:03; Admin Dose 4 MG; Start 02/04/17 at 21:00 Acetaminophen (Tylenol Tab) 650 mg Q6H PRN PO PAIN LEVEL 1-3 OR FEVER Last administered on 02/10/17 01:10; Admin Dose 650 MG; Start 02/04/17 at 21:00 Morphine Sulfate (morphine) 2 mg Q4H PRN IV SEVERE PAIN LEVEL 7-10 Last administered on 02/11/17 11:53; Admin Dose 2 MG; Start 02/04/17 at 21:00 Enoxaparin Sodium (Lovenox) 30 mg DAILY SC Last administered on 02/11/17 08:38 ; Admin Dose 30 MG; Start 02/05/17 at 09:00 Lorazepam (Ativan) 1 mg HS PO Last administered on 02/10/17 22:03; Admin Dose 1 MG; Start 02/07/17 at 21:00 Multivitamins/ Minerals (Theragran-M) 1 tab DAILY PO Last administered on 08:39; Admin Dose 1 TAB; Start 02/07/17 at 18:30 Ascorbic Acid (Vitamin C) 500 mg BID PO Last administered on 02/11/17 08:36; Admin Dose 500 MG; Start 02/07/17 at 21:00 Zinc Sulfate (Zinc Sulfate) 220 mg DAILY PO Last administered on 02/11/17 08: 35; Admin Dose 220 MG; Start 02/08/17 at 09:00 Tramadol HCl (Ultram) 50 mg Q4 PRN PO PAIN Last administered on 02/07/17 23: 37; Admin Dose 50 MG; Start 02/07/17 at 23:00 Sodium Hypochlorite (Dakin'S (Dilute 1/40%)) 1 applic BID IRR Last administered on 02/11/17 11:52; Admin Dose 1 APPLIC; Start 02/08/17 at 09:00; Stop 02/17/17 at 08:59 Acetaminophen/ Hydrocodone Bitart ([place] (5/325)) 1 tab Q4H PRN PO PAIN Last administered on 02/09/17 13:04; Admin Dose 1 TAB; Start 02/08/17 at 12:30 IV Flush (NS 10 ml) 10 ml PRN PRN IV IV PROTOCOL; Start 02/08/17 at 15:00 Acetaminophen/ Hydrocodone Bitart ([place] (5/325)) 2 tab Q4H PRN PO SEVERE PAIN LEVEL 7-10 Last administered on 02/11/17 06:35; Admin Dose 2 TAB; Start at 15:00 Hydralazine HCl (Apresoline) 10 mg Q6H PRN IV FOR SBP >170 Last administered on 02/10/17 14:38; Admin Dose 10 MG; Start 02/09/17 at 15:00 Losartan Potassium (Cozaar) 50 mg BID PO Last administered on 02/11/17 08:35; Admin Dose 50 MG; Start 02/09/17 at 21:00 Sumatriptan Succinate (Imitrex) 6 mg PRN PRN SC HEADACHE Last administered on 02/11/17 15:35; Admin Dose 6 MG; Start 02/10/17 at 13:30 Amlodipine Besylate 10 mg 10 mg DAILY PO Last administered on 02/11/17 08:35; Admin Dose 10 MG; Start 02/10/17 at 13:30 Sodium Chloride 1,000 ml @ 60 mls/hr [id number] IV Last administered on 14:28; Admin Dose 60 MLS/HR; Start 02/10/17 at 13:30 Vancomycin HCl 250 ml @ 125 mls/hr Q12H IVPB Last administered on 02/11/17 16 :48; Admin Dose 125 MLS/HR; Start 02/10/17 at 17:00 Piperacillin Sod/ Tazobactam Sod (Zosyn 3.375gm/ 50 ml (Pmx)) 50 ml @ 100 mls/ hr Q6 IVPB Last administered on 02/11/17 11:53; Admin Dose 100 MLS/HR; Start 02/10/17 at 18:00 Carvedilol (Coreg) 6.25 mg BID PO Last administered on 02/11/17 08:36; Admin Dose 6.25 MG; Start 02/10/17 at 21:00 Miscellaneous Information (*Rx Drug Level Order Reminder*) 1 ONCE ONCE XX ; Start 02/12/17 at 04:00; Stop 02/12/17 at 04:01 Famotidine (Pepcid) 20 mg DAILY PO ; Start 02/12/17 at 09:[address] abd/pelvis 02/10/2017: Interval successful incision and drainage of previously noted abscess anterior pelvic wall. Development small pleural effusions with bibasilar atelectasis. Development small volume ascites. 6.7 x 4.6 x 4.6 cm indeterminate mass in the inferior aspect right lobe of the liver not appreciated on prior study without intravenous contrast. This mass is indeterminate. Question hemangioma. Question abscess. Hepatoma cannot be ruled out. Dedicated dynamic three-phase CT or MRI is suggested for further evaluation. Post cholecystectomy. L5-S1 degenerative disc disease. FLOYD HUNT NP Feb 11, 2017 18:29
[2017-02-11 20:00] VITALS: BP 150/77; RESP 19
[2017-02-11] MEDS: LORAZEPAM 1 MG TAB PO SCH (21:02)
[2017-02-12] MEDS: ACETAMINOPHEN 325 MG TAB PO PRN (00:40)
[2017-02-12 02:43] VITALS: BP 148/74; RESP 19
[2017-02-12] MEDS: VANCOMYCIN 1 GM in NS 250 ML IVPB SCH ×3 (05:00→17:23)
[2017-02-12 05:22] LABS: BASOPHILS % 0.3 % (0.0-2.0); EOSINOPHILS # 0.3 10^3/ul (0.0-0.5); EOSINOPHILS % 2.1 % (0.0-7.0); HEMATOCRIT 29.6 % (37.0-47.0); HEMOGLOBIN 9.2 g/dl (12.0-16.0); LYMPHOCYTES # 1.5 10^3/ul (0.8-2.9); LYMPHOCYTES % 12.4 % (15.0-51.0); MEAN CORPUSCULAR HEMOGLOBIN 24.5 pg (29.0-33.0); MEAN CORPUSCULAR HGB CONC 31.1 g/dl (32.0-37.0); MEAN CORPUSCULAR VOLUME 78.9 fl (82.0-101.0); MEAN PLATELET VOLUME 10.8 fl (7.4-10.4); MONOCYTES % 8.4 % (0.0-11.0); NEUTROPHILS % 72.8 % (39.0-77.0); PLATELET COUNT 382 10^3/UL (140-415); RED BLOOD COUNT 3.75 10^6/ul (4.20-5.40); RED CELL DISTRIBUTION WIDTH 18.1 % (11.5-14.5); WHITE BLOOD COUNT 12.4 10^3/ul (4.8-10.8)
[2017-02-12] MEDS: PIPER-TAZO 3.375 GM IV (PMX) 50 ML IVPB SCH ×2 (05:53→12:18)
[2017-02-12 06:07] LABS: ALBUMIN 2.8 g/dl (3.3-4.9); ALBUMIN/GLOBULIN RATIO 0.96; BILIRUBIN,INDIRECT 0.2 mg/dl (0-1.1); BILIRUBIN,TOTAL 0.2 mg/dl (0.2-1.3); CALCIUM 8.3 mg/dl (8.4-10.2); CREATININE 0.94 mg/dl (0.44-1.00); POTASSIUM 3.4 mmol/L (3.5-5.1); TOTAL PROTEIN 5.7 g/dl (6.1-8.1)
[2017-02-12 07:56] VITALS: BP 158/87; RESP 15
[2017-02-12] MEDS: SODIUM HYPOCHLORITE 1/40% 1L IRRIG IRR SCH ×2 (08:12→21:54)
[2017-02-12] MEDS: LOSARTAN 50 MG TAB PO SCH ×2 (08:13→20:49)
[2017-02-12] MEDS: MULTIVITAMINS/MINERALS TAB PO SCH (08:13)
[2017-02-12] MEDS: ZINC SULFATE 220 MG CAP PO SCH (08:13)
[2017-02-12] MEDS: ASCORBIC ACID 500 MG TAB PO SCH ×2 (08:14→20:49)
[2017-02-12] MEDS: FAMOTIDINE 20 MG TAB PO SCH (08:14)
[2017-02-12] MEDS: AMLODIPINE 10 MG TAB PO SCH (08:14)
[2017-02-12] MEDS: HYDROCODONE/APAP (5/325) TAB PO PRN (08:16)
[2017-02-12] MEDS: ENOXAPARIN 30 MG/0.3 ML SYG SC SCH (08:21)
[2017-02-12] MEDS ORDERED: BARIUM SULF 2% 450 ML BTL (BERRY SMOOTHIE) PO ONE (10:00)
[2017-02-12] MEDS ORDERED: SOD CHLORIDE 0.9% 100 ML ONE (11:27)
[2017-02-12] MEDS ORDERED: IOHEXOL 300MG/ML 150 ML BTL ONE (11:27)
[2017-02-12 11:45] LABS: CARCINOEMBRYONIC ANTIGEN 0.8 ng/ml (0.0-5.0)
[2017-02-12 11:49] LABS: CANCER ANTIGEN 19-9 6.2 U/ml (0.0-37.0)
--- NOTE | 2017-02-12 11:52 | RADRPT ---
PROCEDURE: CT Abdomen and Pelvis with and without contrast with multiphase liver imaging protocol. CLINICAL INDICATION: Liver mass. TECHNIQUE: Four phase CT scan of the abdomen and pelvis with and without contrast was performed on a multidetector high-resolution CT scanner. Precontrast, arterial phase, portal venous phase, and equilibrium phase imaging was performed. The patient was scanned both before and following the unco mplicated intravenous administration of 100 cc of Omnipaque 300. Coronal and sagittal reformatted i mages were obtained from the axial source images. Images were reviewed on a high-resolution PACS wor kstation. One or more of the following dose reduction techniques were used: Automated exposure cont rol, adjustment of the mA and/or kV according to patient size, use of iterative reconstruction tech nique. The total exam CTDI equals 14.6, 13.7, 15.6, 14.0 mGy and the total exam DLP equals 3117.53 m Gy-cm. COMPARISON: CTs from 02/10/2017 and 02/04/2017 FINDINGS: CT liver: The liver is enlarged measuring 18.7 cm in size and demonstrates normal attenuation. The partially e xophytic hypodense mass extending inferiorly from segment 5 of the liver measures 5.7 x 5.3 x 7.4 cm . The mass demonstrates initial peripheral nodular arterial enhancement with subsequent centripetal filling on the portal venous and delayed phases, consistent with a large hemangioma. No additional h epatic lesions are seen. The portal and hepatic veins are patent. There is conventional hepatic romeo ry anatomy. The gallbladder is surgically absent. No intrahepatic ductal dilatation is seen. There i s a small amount of perihepatic and perisplenic ascites. CT abdomen: The right PICC has its tip in the SVC. There are small bilateral pleural effusions with atelectasis, larger on the right. Prominent mediastinal lymph nodes measure up to 1.3 cm in the right paratrache al region. There is left atrial enlargement measuring 4.6 cm in AP diameter. The spleen is normal in size and homogeneous in density. The stomach is partially collapsed, but is grossly unremarkable. The pancreas as visualized is normal. The gallbladder and biliary tree are unremarkable and there is no evidence for biliary dilatation. The adrenal glands are symmetric and normal. The kidneys are symmetrically unremarkable as well. No renal calculus or obstructive uropa thy or mass lesion is seen. The aorta is of normal caliber. There is no retroperitoneal lymphadenopathy. The maycol hepatis reg ion is clear. The small bowel and mesentery, as visualized, are equally unremarkable. Scattered div erticula are present throughout the colon without evidence of acute diverticulitis. CT pelvis: Postsurgical changes related to incision and drainage of previously noted complex fluid collection i n the anterior pelvic wall are again noted. There are small pockets of gas and minimal fluid remaini ng but there is no residual significant abscess seen. A small amount of pelvic ascites is not signif icantly changed. The small bowel loops situated within the pelvis are unremarkable. The uterus is absent. The pelvic sidewalls and inguinal regions are clear. The sigmoid colon and rectum are unremarkable. No mass, lymphadenopathy, or free fluid is seen. The surrounding osseous structures are unremarkable. No osteolytic or osteoblastic lesion is detect ed. IMPRESSION: 1. 5.7 x 5.3 x 7.4 cm right hepatic lobe mass consistent with a large hemangioma. Otherwise, no jeff dence of hepatic lesions. 2. Hepatomegaly. 3. Small bilateral pleural effusions with atelectasis, larger on the right. 4. Left atrial enlargement. 5. Right PICC in place with the tip in the SVC. 6. Stable appearance of postsurgical changes within the anterior pelvic wall consistent with prior incision and drainage. No evidence of significant residual abscess. 7. Small amount of abdominal ascites. 8. Status post cholecystectomy. 9. Diverticulosis without evidence of diverticulitis. 10. Prominent mediastinal lymph nodes measuring up to 1.3 cm in the right paratracheal region, nons pecific. RPTAT: QQ .Isma Lyle MD, Date Time Electronically viewed and signed by .Isma Lyle MD, on 02/12/2017 11:51 .A/
--- NOTE | 2017-02-12 12:53 | CONS ---
Date/Time of Note Date/Time of Note DATE: 02/12/17 TIME: 12:51 Assessment/Plan Assessment/Plan Chief Complaint/Hosp Course 1. Large subcutaneous and rectus abdominous anterior fluid collection measuring 19 cm transverse by 4.6 cm AP by 6.9 cm in superior inferior dimensions. Differential to include abscess, infected seroma or hematoma.-- resolved 2. s/p hysterectomy 3. Hepatic Hemangioma R: finish 14 days of Vanco through 02.19.17 probiotics ok for d/c from id standpoint with outpatient id f/u Problems: Consultation Date/Type/Reason Admit Date/Time Feb 04, 2017 at 21:02 Initial Consult Date 02/08/17 Type of Consultation: Infectious Disease Referring Provider: ANGY GONCALVES Exam/Review of Systems Vital Signs Vitals Vital Signs Date Time Temp Pulse Resp B/P Pulse Ox O2 Delivery O2 Flow Rate FiO2 02/12/17 07:56 98.3 66 15 158/87 96 02/10/17 12:45 Room Air Intake and Output 02/11/17 02/11/17 02/12/17 15:00 23:00 07:00 Intake Total 350 ml 660 ml 930 ml Balance 350 ml 660 ml 930 ml Exam Constitutional: alert, oriented, well developed Psych: nl mood/affect, no complaints Head: atraumatic, normocephalic Eyes: EOMI, PERRL, nl conjunctiva, nl lids, nl sclera Respiratory: clear to auscultation, normal air movement Cardiovascular: nl pulses, regular rate and rhythm Gastrointestinal: nl liver, spleen, non-tender, soft Results Result Diagram: 02/12/17 0437 02/12/17 0437 Results 24 hrs Laboratory Tests Test 02/12/17 04:36 02/12/17 04:37 Alpha Fetoprotein 1.64 Carcinoembryonic Antigen 0.8 CA 19-9 Antigen 6.2 White Blood Count 12.4 H Red Blood Count 3.75 L Hemoglobin 9.2 L Hematocrit 29.6 L Mean Corpuscular Volume 78.9 L Mean Corpuscular Hemoglobin 24.5 L Mean Corpuscular Hemoglobin Concent 31.1 L Red Cell Distribution Width 18.1 H Platelet Count 382 Mean Platelet Volume 10.8 H Neutrophils % 72.8 Lymphocytes % 12.4 L Monocytes % 8.4 Eosinophils % 2.1 Basophils % 0.3 Nucleated Red Blood Cells % 0.0 Neutrophils # 9.0 H Lymphocytes # 1.5 Monocytes # 1.0 H Eosinophils # 0.3 Basophils # 0.0 Nucleated Red Blood Cells # 0.0 Sodium Level 140 Potassium Level 3.4 L Chloride Level 104 Carbon Dioxide Level 28 Anion Gap 11 Blood Urea Nitrogen 8 Creatinine 0.94 Glucose Level 81 Calcium Level 8.3 L Total Bilirubin 0.2 Direct Bilirubin 0.00 Indirect Bilirubin 0.2 Aspartate Amino Transf (AST/SGOT) 25 Alanine Aminotransferase (ALT/SGPT) 38 Alkaline Phosphatase 95 Total Protein 5.7 L Albumin 2.8 L Globulin 2.90 Albumin/Globulin Ratio 0.96 Vancomycin Level Trough 12.2 Medications Medications Current Medications Ondansetron HCl (Zofran Inj) 4 mg Q6H PRN IV NAUSEA AND/OR VOMITING Last administered on 02/11/17 21:02; Admin Dose 4 MG; Start 02/04/17 at 21:00 Acetaminophen (Tylenol Tab) 650 mg Q6H PRN PO PAIN LEVEL 1-3 OR FEVER Last administered on 02/12/17 00:40; Admin Dose 650 MG; Start 02/04/17 at 21:00 Morphine Sulfate (morphine) 2 mg Q4H PRN IV SEVERE PAIN LEVEL 7-10 Last administered on 02/11/17 21:02; Admin Dose 2 MG; Start 02/04/17 at 21:00 Enoxaparin Sodium (Lovenox) 30 mg DAILY SC Last administered on 02/12/17 08:21 ; Admin Dose 30 MG; Start 02/05/17 at 09:00 Lorazepam (Ativan) 1 mg HS PO Last administered on 02/11/17 21:02; Admin Dose 1 MG; Start 02/07/17 at 21:00 Multivitamins/ Minerals (Theragran-M) 1 tab DAILY PO Last administered on 08:13; Admin Dose 1 TAB; Start 02/07/17 at 18:30 Ascorbic Acid (Vitamin C) 500 mg BID PO Last administered on 02/12/17 08:14; Admin Dose 500 MG; Start 02/07/17 at 21:00 Zinc Sulfate (Zinc Sulfate) 220 mg DAILY PO Last administered on 02/12/17 08: 13; Admin Dose 220 MG; Start 02/08/17 at 09:00 Tramadol HCl (Ultram) 50 mg Q4 PRN PO PAIN Last administered on 02/07/17 23: 37; Admin Dose 50 MG; Start 02/07/17 at 23:00 Sodium Hypochlorite (Dakin'S (Dilute 1/40%)) 1 applic BID IRR Last administered on 02/12/17 08:12; Admin Dose 1 APPLIC; Start 02/08/17 at 09:00; Stop 02/17/17 at 08:59 Acetaminophen/ Hydrocodone Bitart ([place] (5/325)) 1 tab Q4H PRN PO PAIN Last administered on 02/12/17 08:16; Admin Dose 1 TAB; Start 02/08/17 at 12:30 IV Flush (NS 10 ml) 10 ml PRN PRN IV IV PROTOCOL; Start 02/08/17 at 15:00 Acetaminophen/ Hydrocodone Bitart ([place] (5/325)) 2 tab Q4H PRN PO SEVERE PAIN LEVEL 7-10 Last administered on 02/11/17 06:35; Admin Dose 2 TAB; Start at 15:00 Hydralazine HCl (Apresoline) 10 mg Q6H PRN IV FOR SBP >170 Last administered on 02/10/17 14:38; Admin Dose 10 MG; Start 02/09/17 at 15:00 Losartan Potassium (Cozaar) 50 mg BID PO Last administered on 02/12/17 08:13; Admin Dose 50 MG; Start 02/09/17 at 21:00 Sumatriptan Succinate (Imitrex) 6 mg PRN PRN SC HEADACHE Last administered on 02/11/17 15:35; Admin Dose 6 MG; Start 02/10/17 at 13:30 Amlodipine Besylate 10 mg 10 mg DAILY PO Last administered on 02/12/17 08:14; Admin Dose 10 MG; Start 02/10/17 at 13:30 Sodium Chloride 1,000 ml @ 60 mls/hr [id number] IV Last administered on 23:35; Admin Dose 60 MLS/HR; Start 02/10/17 at 13:30 Vancomycin HCl 250 ml @ 125 mls/hr Q12H IVPB Last administered on 02/12/17 07 :01; Admin Dose 125 MLS/HR; Start 02/10/17 at 17:00 Piperacillin Sod/ Tazobactam Sod (Zosyn 3.375gm/ 50 ml (Pmx)) 50 ml @ 100 mls/ hr Q6 IVPB Last administered on 02/12/17 12:18; Admin Dose 100 MLS/HR; Start 02/10/17 at 18:00 Carvedilol (Coreg) 6.25 mg BID PO Last administered on 02/12/17 08:13; Admin Dose 6.25 MG; Start 02/10/17 at 21:00 Famotidine (Pepcid) 20 mg DAILY PO Last administered on 02/12/17 08:14; Admin Dose 20 MG; Start 02/12/17 at 09:00 BETTINA GOINS MD Feb 12, 2017 12:53
[2017-02-12 14:26] VITALS: BP 136/76; RESP 17
--- NOTE | 2017-02-12 14:26 | PN ---
Date/Time of Note Date/Time of Note DATE: 02/12/17 TIME: 14:24 Assessment/Plan Lines/Catheters IV Catheter Type (from [facility]): PICC Line Urinary Cath still in place: No Assessment/Plan Assessment/Plan -Liver mass per CT from 02/10. Liver abscess? Continue current antibiotics. Follow-up ID and surgical recommendations. - CT 02/12- showed Hemangioma - per GI -Sepsis with shock, resolving. Dr. Caicedo is following in infection disease consultation. -Anemia, status post blood transfusion. - Wound abscess. Status post I&D by Dr. Reyna. Continue current wound care and antibiotics. Dr. Reyna is following in general surgery consultation. - Status post total abdominal hysterectomy on 01/[address] Mckeon at [facility]. - Hypertension, continue Cozaar, Coreg and Norvasc. Further recommendations based on clinical course. Plan of care is discussed by Dr. Geronimo. Subjective 24 Hr Interval Summary ENT: no complaints Respiratory: no complaints Cardiovascular: no complaints Gastrointestinal: pain Musculoskeletal: no complaints Exam/Review of Systems Vital Signs Vitals Vital Signs Date Time Temp Pulse Resp B/P Pulse Ox O2 Delivery O2 Flow Rate FiO2 02/12/17 07:56 98.3 66 15 158/87 96 02/10/17 12:45 Room Air Intake and Output 02/11/17 02/11/17 02/12/17 15:00 23:00 07:00 Intake Total 350 ml 660 ml 930 ml Balance 350 ml 660 ml 930 ml Exam Constitutional: alert, oriented Respiratory: clear to auscultation, diminished breath sounds Cardiovascular: nl pulses Gastrointestinal: soft, tender Musculoskeletal: nl extremities to inspection Results Result Diagram: 02/12/17 0437 02/12/17 0437 Results 24 hrs Laboratory Tests Test 02/12/17 04:36 02/12/17 04:37 Alpha Fetoprotein 1.64 Carcinoembryonic Antigen 0.8 CA 19-9 Antigen 6.2 White Blood Count 12.4 H Red Blood Count 3.75 L Hemoglobin 9.2 L Hematocrit 29.6 L Mean Corpuscular Volume 78.9 L Mean Corpuscular Hemoglobin 24.5 L Mean Corpuscular Hemoglobin Concent 31.1 L Red Cell Distribution Width 18.1 H Platelet Count 382 Mean Platelet Volume 10.8 H Neutrophils % 72.8 Lymphocytes % 12.4 L Monocytes % 8.4 Eosinophils % 2.1 Basophils % 0.3 Nucleated Red Blood Cells % 0.0 Neutrophils # 9.0 H Lymphocytes # 1.5 Monocytes # 1.0 H Eosinophils # 0.3 Basophils # 0.0 Nucleated Red Blood Cells # 0.0 Sodium Level 140 Potassium Level 3.4 L Chloride Level 104 Carbon Dioxide Level 28 Anion Gap 11 Blood Urea Nitrogen 8 Creatinine 0.94 Glucose Level 81 Calcium Level 8.3 L Total Bilirubin 0.2 Direct Bilirubin 0.00 Indirect Bilirubin 0.2 Aspartate Amino Transf (AST/SGOT) 25 Alanine Aminotransferase (ALT/SGPT) 38 Alkaline Phosphatase 95 Total Protein 5.7 L Albumin 2.8 L Globulin 2.90 Albumin/Globulin Ratio 0.96 Vancomycin Level Trough 12.2 Medications Medications Current Medications Ondansetron HCl (Zofran Inj) 4 mg Q6H PRN IV NAUSEA AND/OR VOMITING Last administered on 02/11/17 21:02; Admin Dose 4 MG; Start 02/04/17 at 21:00 Acetaminophen (Tylenol Tab) 650 mg Q6H PRN PO PAIN LEVEL 1-3 OR FEVER Last administered on 02/12/17 00:40; Admin Dose 650 MG; Start 02/04/17 at 21:00 Morphine Sulfate (morphine) 2 mg Q4H PRN IV SEVERE PAIN LEVEL 7-10 Last administered on 02/11/17 21:02; Admin Dose 2 MG; Start 02/04/17 at 21:00 Enoxaparin Sodium (Lovenox) 30 mg DAILY SC Last administered on 02/12/17 08:21 ; Admin Dose 30 MG; Start 02/05/17 at 09:00 Lorazepam (Ativan) 1 mg HS PO Last administered on 02/11/17 21:02; Admin Dose 1 MG; Start 02/07/17 at 21:00 Multivitamins/ Minerals (Theragran-M) 1 tab DAILY PO Last administered on 08:13; Admin Dose 1 TAB; Start 02/07/17 at 18:30 Ascorbic Acid (Vitamin C) 500 mg BID PO Last administered on 02/12/17 08:14; Admin Dose 500 MG; Start 02/07/17 at 21:00 Zinc Sulfate (Zinc Sulfate) 220 mg DAILY PO Last administered on 02/12/17 08: 13; Admin Dose 220 MG; Start 02/08/17 at 09:00 Tramadol HCl (Ultram) 50 mg Q4 PRN PO PAIN Last administered on 02/07/17 23: 37; Admin Dose 50 MG; Start 02/07/17 at 23:00 Sodium Hypochlorite (Dakin'S (Dilute 1/40%)) 1 applic BID IRR Last administered on 02/12/17 08:12; Admin Dose 1 APPLIC; Start 02/08/17 at 09:00; Stop 02/17/17 at 08:59 Acetaminophen/ Hydrocodone Bitart ([place] (5/325)) 1 tab Q4H PRN PO PAIN Last administered on 02/12/17 08:16; Admin Dose 1 TAB; Start 02/08/17 at 12:30 IV Flush (NS 10 ml) 10 ml PRN PRN IV IV PROTOCOL; Start 02/08/17 at 15:00 Acetaminophen/ Hydrocodone Bitart ([place] (5/325)) 2 tab Q4H PRN PO SEVERE PAIN LEVEL 7-10 Last administered on 02/11/17 06:35; Admin Dose 2 TAB; Start at 15:00 Hydralazine HCl (Apresoline) 10 mg Q6H PRN IV FOR SBP >170 Last administered on 02/10/17 14:38; Admin Dose 10 MG; Start 02/09/17 at 15:00 Losartan Potassium (Cozaar) 50 mg BID PO Last administered on 02/12/17 08:13; Admin Dose 50 MG; Start 02/09/17 at 21:00 Sumatriptan Succinate (Imitrex) 6 mg PRN PRN SC HEADACHE Last administered on 02/11/17 15:35; Admin Dose 6 MG; Start 02/10/17 at 13:30 Amlodipine Besylate 10 mg 10 mg DAILY PO Last administered on 02/12/17 08:14; Admin Dose 10 MG; Start 02/10/17 at 13:30 Sodium Chloride 1,000 ml @ 60 mls/hr [id number] IV Last administered on 23:35; Admin Dose 60 MLS/HR; Start 02/10/17 at 13:30 Vancomycin HCl (Vancocin) 250 ml @ 125 mls/hr Q12H IVPB Last administered on 02/12/17 07:01; Admin Dose 125 MLS/HR; Start 02/10/17 at 17:00 Carvedilol (Coreg) 6.25 mg BID PO Last administered on 02/12/17 08:13; Admin Dose 6.25 MG; Start 02/10/17 at 21:00 Famotidine (Pepcid) 20 mg DAILY PO Last administered on 02/12/17 08:14; Admin Dose 20 MG; Start 02/12/17 at 09:00 MARIKA LEBRON Feb 12, 2017 14:26
[2017-02-12] MEDS ORDERED: POTASSIUM CHLORIDE (SR) 20 MEQ TAB PO STA (14:39)
--- NOTE | 2017-02-12 15:28 | CONS ---
DATE OF ADMISSION: 02/04/2017 DATE OF CONSULTATION: GASTROINTESTINAL CONSULTATION REASON FOR CONSULTATION: Liver mass. HISTORY OF PRESENT ILLNESS: A 51-year-old female who underwent abdominal hysterectomy for menorrhag ia 2 weeks ago at [facility]. She was hospitalized for 2 weeks. After discharge, she star hong having abdominal pain, came to the ER at [facility] and found patient had an a bdominal abscess around the wound. She was draining purulent material. Surgeon had seen the patien t. The GI consult was called in for a mass on the inferior aspect of the right lobe of the liver. The patient was seen by infectious disease and she is on vancomycin and piperacillin. No history of weight loss, no chest pain, no shortness of breath. No history of any liver problem in the past. PAST MEDICAL HISTORY: Hysterectomy as described. ALLERGIES: OXYCODONE. PHYSICAL EXAMINATION: GENERAL: Alert, awake, not in distress. VITAL SIGNS: Stable. HEENT: Unremarkable. NECK: Supple, no thyromegaly, no lymphadenopathy. CARDIOVASCULAR: No murmur, gallop or click. LUNGS: Clear. ABDOMEN: Soft. The wound is covered with a dressing. CENTRAL NERVOUS SYSTEM: Grossly within normal limits. LABORATORY DATA: Hematocrit is 29. WBC is 12.4. Liver functions all are within normal limits. IMAGING STUDIES: She had a CAT scan done originally on 02/04 which said, the patient is status post cholecystectomy and there was no mention about liver mass. However, the repeat CAT scan which was done on 02/10, after 7 days, there is a mass in the inferior aspect of the right lobe of the liver, p ossible hemangioma, possible abscess and possible hepatoma, so 3-phase CT was recommended. IMPRESSION: 1. Status post hysterectomy for menorrhagia. 2. Anemia secondary to menorrhagia. 3. Status post wound infection with spontaneous drainage of fluid. 4. Mass on the inferior aspect of the right lobe of the liver, hemangioma versus tumor versus absce ss. PLAN: 1. To do a 3-phase CT scan study to make sure that it is not a hematoma and confirm the diagnosis o f either hemangioma or abscess. 2. Continue with antibiotic treatment and we will send also for a cancer cell marker. Dictated By: JAISON DICKSON/NICOLE Conf#: [id number] [facility]#: [id number]
[2017-02-12] MEDS: SOD CHLORIDE 0.45% 1,000 ML IV SCH ×2 (15:30→23:50)
[2017-02-12 19:58] VITALS: BP 160/80; RESP 19
[2017-02-12] MEDS: LORAZEPAM 1 MG TAB PO SCH (20:49)
[2017-02-12 23:54] VITALS: BP 143/77; RESP 19
[2017-02-13] MEDS: VANCOMYCIN 1 GM in NS 250 ML IVPB SCH ×2 (05:59→16:31)
[2017-02-13] MEDS: ACETAMINOPHEN 325 MG TAB PO PRN (06:09)
[2017-02-13 07:05] LABS: BASOPHIL # 0.1 10^3/ul (0.0-0.1); BASOPHILS % 0.6 % (0.0-2.0); EOSINOPHILS # 0.2 10^3/ul (0.0-0.5); EOSINOPHILS % 1.6 % (0.0-7.0); HEMATOCRIT 31.6 % (37.0-47.0); HEMOGLOBIN 9.6 g/dl (12.0-16.0); LYMPHOCYTES # 1.6 10^3/ul (0.8-2.9); LYMPHOCYTES % 11.6 % (15.0-51.0); MEAN CORPUSCULAR HEMOGLOBIN 23.9 pg (29.0-33.0); MEAN CORPUSCULAR HGB CONC 30.4 g/dl (32.0-37.0); MEAN CORPUSCULAR VOLUME 78.8 fl (82.0-101.0); MEAN PLATELET VOLUME 10.9 fl (7.4-10.4); MONOCYTE # 1.1 10^3/ul (0.3-0.9); MONOCYTES % 8.3 % (0.0-11.0); NEUTROPHIL # 10.4 10^3/ul (1.6-7.5); NEUTROPHILS % 75.9 % (39.0-77.0); PLATELET COUNT 398 10^3/UL (140-415); RED BLOOD COUNT 4.01 10^6/ul (4.20-5.40); RED CELL DISTRIBUTION WIDTH 18.8 % (11.5-14.5); WHITE BLOOD COUNT 13.7 10^3/ul (4.8-10.8)
[2017-02-13 07:33] LABS: CALCIUM 9.3 mg/dl (8.4-10.2); CREATININE 0.87 mg/dl (0.44-1.00); POTASSIUM 3.6 mmol/L (3.5-5.1)
[2017-02-13 07:37] VITALS: BP 150/78; RESP 17
[2017-02-13] MEDS: SOD CHLORIDE 0.45% 1,000 ML IV SCH ×2 (08:10→20:41)
[2017-02-13] MEDS: SODIUM HYPOCHLORITE 1/40% 1L IRRIG IRR SCH ×2 (09:25→21:19)
[2017-02-13] MEDS: MULTIVITAMINS/MINERALS TAB PO SCH (09:26)
[2017-02-13] MEDS: FAMOTIDINE 20 MG TAB PO SCH (09:26)
[2017-02-13] MEDS: ASCORBIC ACID 500 MG TAB PO SCH ×2 (09:26→20:41)
[2017-02-13] MEDS: ZINC SULFATE 220 MG CAP PO SCH (09:26)
[2017-02-13] MEDS: LOSARTAN 50 MG TAB PO SCH ×2 (09:27→20:43)
[2017-02-13] MEDS: AMLODIPINE 10 MG TAB PO SCH (09:28)
[2017-02-13] MEDS: ENOXAPARIN 30 MG/0.3 ML SYG SC SCH (09:53)
--- NOTE | 2017-02-13 12:56 | CONS ---
Date/Time of Note Date/Time of Note DATE: 02/13/17 TIME: 12:55 Assessment/Plan Assessment/Plan Chief Complaint/Hosp Course - Large subcutaneous and rectus abdominous anterior fluid collection measuring 19 cm transverse by 4.6 cm AP by 6.9 cm in superior inferior dimensions. Differential to include abscess, infected seroma or hematoma. S/p spontaneous drainage and suction 02/05/2017. Cx + CoNS and GHS - resolving - S/p hysterectomy 01/25/2017 at [facility] - 5.7 x 5.3 x 7.4 cm right hepatic lobe mass consistent with a large hemangioma. Otherwise, no evidence of hepatic lesions per CT - Persistent leukocytosis likely reactive (remains afebrile) - H/o Migraines Recommendations: - finish 14 days of Vanco through 02.19.17 - continue local wound care - probiotics - ok for d/c from ID standpoint with outpatient ID f/u Management d/w pt, her spouse, BRENDAN Prasad, and Dr. Caicedo Problems: Consultation Date/Type/Reason Admit Date/Time Feb 04, 2017 at 21:02 Initial Consult Date 02/08/17 Type of Consultation: Infectious Disease Referring Provider: ANGY GONCALVES 24 HR Interval Summary Free Text/Dictation CT shows hemangioma. Tumor markers negative. No further migraines. C/o back pain and tolerable lower abdominal pain. No n/v/d , dysuria. Exam/Review of Systems Vital Signs Vitals Vital Signs Date Time Temp Pulse Resp B/P Pulse Ox O2 Delivery O2 Flow Rate FiO2 02/13/17 07:37 98.2 67 17 150/78 95 02/10/17 12:45 Room Air Intake and Output 02/12/17 02/12/17 02/13/17 15:00 23:00 07:00 Intake Total 300 ml 1550 ml 1170 ml Balance 300 ml 1550 ml 1170 ml Exam Constitutional: alert, oriented, well developed, other (sitting in chair in NAD ) Psych: nl mood/affect Head: atraumatic, normocephalic Eyes: nl sclera ENMT: nl external ears & nose Neck: supple Respiratory: clear to auscultation, normal air movement Cardiovascular: nl pulses, regular rate and rhythm Gastrointestinal: other (LLQ dressing c/d/i), soft, surgical scars (well approximated) Musculoskeletal: nl extremities to inspection Extremities: warm, normal pulses Neurological: nl mental status, nl speech Skin: nl turgor, other (Wound with dressing intact - no purulent fluid, erythema or induration noted when dressing was partially removed for assessment) Results Result Diagram: 02/13/17 0653 02/13/17 0653 Results 24 hrs Laboratory Tests Test 02/13/17 06:53 White Blood Count 13.7 H Red Blood Count 4.01 L Hemoglobin 9.6 L Hematocrit 31.6 L Mean Corpuscular Volume 78.8 L Mean Corpuscular Hemoglobin 23.9 L Mean Corpuscular Hemoglobin Concent 30.4 L Red Cell Distribution Width 18.8 H Platelet Count 398 Mean Platelet Volume 10.9 H Neutrophils % 75.9 Lymphocytes % 11.6 L Monocytes % 8.3 Eosinophils % 1.6 Basophils % 0.6 Nucleated Red Blood Cells % 0.0 Neutrophils # 10.4 H Lymphocytes # 1.6 Monocytes # 1.1 H Eosinophils # 0.2 Basophils # 0.1 Nucleated Red Blood Cells # 0.0 Sodium Level 143 Potassium Level 3.6 Chloride Level 104 Carbon Dioxide Level 31 Anion Gap 12 Blood Urea Nitrogen 6 L Creatinine 0.87 Glucose Level 85 Calcium Level 9.3 Medications Medications Current Medications Ondansetron HCl (Zofran Inj) 4 mg Q6H PRN IV NAUSEA AND/OR VOMITING Last administered on 02/11/17 21:02; Admin Dose 4 MG; Start 02/04/17 at 21:00 Acetaminophen (Tylenol Tab) 650 mg Q6H PRN PO PAIN LEVEL 1-3 OR FEVER Last administered on 02/13/17 06:09; Admin Dose 650 MG; Start 02/04/17 at 21:00 Morphine Sulfate (morphine) 2 mg Q4H PRN IV SEVERE PAIN LEVEL 7-10 Last administered on 02/11/17 21:02; Admin Dose 2 MG; Start 02/04/17 at 21:00 Enoxaparin Sodium (Lovenox) 30 mg DAILY SC Last administered on 02/13/17 09:53 ; Admin Dose 30 MG; Start 02/05/17 at 09:00 Lorazepam (Ativan) 1 mg HS PO Last administered on 02/11/17 21:02; Admin Dose 1 MG; Start 02/07/17 at 21:00 Multivitamins/ Minerals (Theragran-M) 1 tab DAILY PO Last administered on 09:26; Admin Dose 1 TAB; Start 02/07/17 at 18:30 Ascorbic Acid (Vitamin C) 500 mg BID PO Last administered on 02/13/17 09:26; Admin Dose 500 MG; Start 02/07/17 at 21:00 Zinc Sulfate (Zinc Sulfate) 220 mg DAILY PO Last administered on 02/13/17 09: 26; Admin Dose 220 MG; Start 02/08/17 at 09:00 Tramadol HCl (Ultram) 50 mg Q4 PRN PO PAIN Last administered on 02/07/17 23: 37; Admin Dose 50 MG; Start 02/07/17 at 23:00 Sodium Hypochlorite (Dakin'S (Dilute 1/40%)) 1 applic BID IRR Last administered on 02/13/17 09:25; Admin Dose 1 APPLIC; Start 02/08/17 at 09:00; Stop 02/17/17 at 08:59 Acetaminophen/ Hydrocodone Bitart ([place] (5/325)) 1 tab Q4H PRN PO PAIN Last administered on 02/12/17 08:16; Admin Dose 1 TAB; Start 02/08/17 at 12:30 IV Flush (NS 10 ml) 10 ml PRN PRN IV IV PROTOCOL; Start 02/08/17 at 15:00 Acetaminophen/ Hydrocodone Bitart ([place] (5/325)) 2 tab Q4H PRN PO SEVERE PAIN LEVEL 7-10 Last administered on 02/11/17 06:35; Admin Dose 2 TAB; Start at 15:00 Hydralazine HCl (Apresoline) 10 mg Q6H PRN IV FOR SBP >170 Last administered on 02/10/17 14:38; Admin Dose 10 MG; Start 02/09/17 at 15:00 Losartan Potassium (Cozaar) 50 mg BID PO Last administered on 02/13/17 09:27; Admin Dose 50 MG; Start 02/09/17 at 21:00 Sumatriptan Succinate (Imitrex) 6 mg PRN PRN SC HEADACHE Last administered on 02/11/17 15:35; Admin Dose 6 MG; Start 02/10/17 at 13:30 Amlodipine Besylate 10 mg 10 mg DAILY PO Last administered on 02/13/17 09:28; Admin Dose 10 MG; Start 02/10/17 at 13:30 Sodium Chloride 1,000 ml @ 60 mls/hr [id number] IV Last administered on 23:50; Admin Dose 60 MLS/HR; Start 02/10/17 at 13:30 Vancomycin HCl (Vancocin) 250 ml @ 125 mls/hr Q12H IVPB Last administered on 02/13/17 05:59; Admin Dose 125 MLS/HR; Start 02/10/17 at 17:00 Carvedilol (Coreg) 6.25 mg BID PO Last administered on 02/13/17 09:28; Admin Dose 6.25 MG; Start 02/10/17 at 21:00 Famotidine (Pepcid) 20 mg DAILY PO Last administered on 02/13/17 09:26; Admin Dose 20 MG; Start 02/12/17 at 09:[address] abd/pelvis 02/12/2017: 1. 5.7 x 5.3 x 7.4 cm right hepatic lobe mass consistent with a large hemangioma. Otherwise, no evidence of hepatic lesions. 2. Hepatomegaly. 3. Small bilateral pleural effusions with atelectasis, larger on the right. 4. Left atrial enlargement. 5. Right PICC in place with the tip in the SVC. 6. Stable appearance of postsurgical changes within the anterior pelvic wall consistent with prior incision and drainage. No evidence of significant residual abscess. 7. Small amount of abdominal ascites. 8. Status post cholecystectomy. 9. Diverticulosis without evidence of diverticulitis. 10. Prominent mediastinal lymph nodes measuring up to 1.3 cm in the right paratracheal region, nonspecific. FLOYD HUNT GLUE MAKER BONE Feb 13, 2017 12:56
[2017-02-13 17:17] VITALS: BP 160/78; RESP 18
[2017-02-13 19:25] VITALS: BP 181/88; RESP 18
[2017-02-13] MEDS: LORAZEPAM 1 MG TAB PO SCH (20:43)
[2017-02-14 02:26] VITALS: BP 160/60; RESP 20
[2017-02-14] MEDS: VANCOMYCIN 1 GM in NS 250 ML IVPB SCH ×2 (05:09→17:00)
[2017-02-14 08:32] VITALS: BP 144/74; RESP 18
[2017-02-14] MEDS: ASCORBIC ACID 500 MG TAB PO SCH ×2 (09:48→21:00)
[2017-02-14] MEDS: MULTIVITAMINS/MINERALS TAB PO SCH (09:49)
[2017-02-14] MEDS: ZINC SULFATE 220 MG CAP PO SCH (09:49)
[2017-02-14] MEDS: FAMOTIDINE 20 MG TAB PO SCH (09:49)
[2017-02-14] MEDS: AMLODIPINE 10 MG TAB PO SCH (09:49)
[2017-02-14] MEDS: LOSARTAN 50 MG TAB PO SCH ×2 (09:49→21:00)
[2017-02-14] MEDS: ENOXAPARIN 30 MG/0.3 ML SYG SC SCH (09:54)
[2017-02-14] MEDS: ACETAMINOPHEN 325 MG TAB PO PRN (09:59)
[2017-02-14] MEDS: SODIUM HYPOCHLORITE 1/40% 1L IRRIG IRR SCH ×3 (10:00→22:24)
[2017-02-14 12:27] LABS: BASOPHIL # 0.1 10^3/ul (0.0-0.1); BASOPHILS % 0.6 % (0.0-2.0); EOSINOPHILS # 0.1 10^3/ul (0.0-0.5); HEMATOCRIT 32.2 % (37.0-47.0); HEMOGLOBIN 9.7 g/dl (12.0-16.0); LYMPHOCYTES # 1.4 10^3/ul (0.8-2.9); LYMPHOCYTES % 10.6 % (15.0-51.0); MEAN CORPUSCULAR HEMOGLOBIN 23.6 pg (29.0-33.0); MEAN CORPUSCULAR HGB CONC 30.1 g/dl (32.0-37.0); MEAN CORPUSCULAR VOLUME 78.3 fl (82.0-101.0); MEAN PLATELET VOLUME 10.5 fl (7.4-10.4); MONOCYTE # 1.3 10^3/ul (0.3-0.9); MONOCYTES % 9.3 % (0.0-11.0); NEUTROPHIL # 10.5 10^3/ul (1.6-7.5); NEUTROPHILS % 77.4 % (39.0-77.0); PLATELET COUNT 344 10^3/UL (140-415); RED BLOOD COUNT 4.11 10^6/ul (4.20-5.40); RED CELL DISTRIBUTION WIDTH 19.2 % (11.5-14.5); WHITE BLOOD COUNT 13.5 10^3/ul (4.8-10.8)
[2017-02-14 14:32] VITALS: BP 162/84; RESP 18
--- NOTE | 2017-02-14 16:24 | CONS ---
Date/Time of Note Date/Time of Note DATE: 02/14/17 TIME: 16:24 Assessment/Plan Assessment/Plan Chief Complaint/Hosp Course - Large subcutaneous and rectus abdominous anterior fluid collection measuring 19 cm transverse by 4.6 cm AP by 6.9 cm in superior inferior dimensions. Differential to include abscess, infected seroma or hematoma. S/p spontaneous drainage and suction 02/05/2017. Cx + CoNS and GHS - resolving - S/p hysterectomy 01/25/2017 at [facility] - 5.7 x 5.3 x 7.4 cm right hepatic lobe mass consistent with a large hemangioma. Otherwise, no evidence of hepatic lesions per CT - Persistent leukocytosis likely reactive (remains afebrile) - H/o Migraines - Accelerated HTN - improving Recommendations: - finish 14 days of IV Vanco through 02.19.17 - continue local wound care - probiotics - okay for d/c from ID standpoint on IV Vanco, pharmacy to dose, with outpatient ID f/u Management d/w patient, FUEL OPERATOR Remedios, BRENDAN Woods, and Dr. Caicedo Problems: Consultation Date/Type/Reason Admit Date/Time Feb 04, 2017 at 21:02 Initial Consult Date 02/08/17 Type of Consultation: Infectious Disease Referring Provider: ANGY GONCALVES 24 HR Interval Summary Free Text/Dictation States had severe pain earlier when tape was removed for dressing change but overall pain is tolerable on Tylenol. Denies f/c, NUNEZ, n/v/d, dysuria. Exam/Review of Systems Vital Signs Vitals Vital Signs Date Time Temp Pulse Resp B/P Pulse Ox O2 Delivery O2 Flow Rate FiO2 02/14/17 14:32 98.0 71 18 162/84 97 02/10/17 12:45 Room Air Intake and Output 02/13/17 02/13/17 02/14/17 15:00 23:00 07:00 Intake Total 250 ml 1950 ml 1390 ml Balance 250 ml 1950 ml 1390 ml Exam Constitutional: alert, oriented, well developed, other (lying in bed in NAD) Psych: nl mood/affect Head: atraumatic, normocephalic Eyes: nl sclera ENMT: nl external ears & nose Neck: supple Respiratory: clear to auscultation, normal air movement Cardiovascular: nl pulses, regular rate and rhythm Gastrointestinal: other (LLQ dressing c/d/i), soft, surgical scars (well approximated) Musculoskeletal: nl extremities to inspection Extremities: warm, normal pulses Neurological: nl mental status, nl speech Skin: nl turgor, other (Wound with dressing c/d/i) Results Result Diagram: 02/14/17 1205 02/13/17 0653 Results 24 hrs Laboratory Tests Test 02/14/17 06:04 02/14/17 12:05 Lab Scanned Report BLOOD TRANSFUSION White Blood Count 13.5 H Red Blood Count 4.11 L Hemoglobin 9.7 L Hematocrit 32.2 L Mean Corpuscular Volume 78.3 L Mean Corpuscular Hemoglobin 23.6 L Mean Corpuscular Hemoglobin Concent 30.1 L Red Cell Distribution Width 19.2 H Platelet Count 344 Mean Platelet Volume 10.5 H Neutrophils % 77.4 H Lymphocytes % 10.6 L Monocytes % 9.3 Eosinophils % 1.0 Basophils % 0.6 Nucleated Red Blood Cells % 0.0 Neutrophils # 10.5 H Lymphocytes # 1.4 Monocytes # 1.3 H Eosinophils # 0.1 Basophils # 0.1 Nucleated Red Blood Cells # 0.0 Medications Medications Current Medications Ondansetron HCl (Zofran Inj) 4 mg Q6H PRN IV NAUSEA AND/OR VOMITING Last administered on 02/11/17 21:02; Admin Dose 4 MG; Start 02/04/17 at 21:00 Acetaminophen (Tylenol Tab) 650 mg Q6H PRN PO PAIN LEVEL 1-3 OR FEVER Last administered on 02/14/17 09:59; Admin Dose 650 MG; Start 02/04/17 at 21:00 Morphine Sulfate (morphine) 2 mg Q4H PRN IV SEVERE PAIN LEVEL 7-10 Last administered on 02/11/17 21:02; Admin Dose 2 MG; Start 02/04/17 at 21:00 Enoxaparin Sodium (Lovenox) 30 mg DAILY SC Last administered on 02/14/17 09:54 ; Admin Dose 30 MG; Start 02/05/17 at 09:00 Lorazepam (Ativan) 1 mg HS PO Last administered on 02/11/17 21:02; Admin Dose 1 MG; Start 02/07/17 at 21:00 Multivitamins/ Minerals (Theragran-M) 1 tab DAILY PO Last administered on 09:49; Admin Dose 1 TAB; Start 02/07/17 at 18:30 Ascorbic Acid (Vitamin C) 500 mg BID PO Last administered on 02/14/17 09:48; Admin Dose 500 MG; Start 02/07/17 at 21:00 Zinc Sulfate (Zinc Sulfate) 220 mg DAILY PO Last administered on 02/14/17 09: 49; Admin Dose 220 MG; Start 02/08/17 at 09:00 Tramadol HCl (Ultram) 50 mg Q4 PRN PO PAIN Last administered on 02/07/17 23: 37; Admin Dose 50 MG; Start 02/07/17 at 23:00 Sodium Hypochlorite (Dakin'S (Dilute 1/40%)) 1 applic BID IRR Last administered on 02/14/17 10:00; Admin Dose 1 APPLIC; Start 02/08/17 at 09:00; Stop 02/17/17 at 08:59 Acetaminophen/ Hydrocodone Bitart ([place] (5/325)) 1 tab Q4H PRN PO PAIN Last administered on 02/12/17 08:16; Admin Dose 1 TAB; Start 02/08/17 at 12:30 IV Flush (NS 10 ml) 10 ml PRN PRN IV IV PROTOCOL; Start 02/08/17 at 15:00 Acetaminophen/ Hydrocodone Bitart ([place] (5/325)) 2 tab Q4H PRN PO SEVERE PAIN LEVEL 7-10 Last administered on 02/11/17 06:35; Admin Dose 2 TAB; Start at 15:00 Hydralazine HCl (Apresoline) 10 mg Q6H PRN IV FOR SBP >170 Last administered on 02/10/17 14:38; Admin Dose 10 MG; Start 02/09/17 at 15:00 Losartan Potassium (Cozaar) 50 mg BID PO Last administered on 02/14/17 09:49; Admin Dose 50 MG; Start 02/09/17 at 21:00 Sumatriptan Succinate (Imitrex) 6 mg PRN PRN SC HEADACHE Last administered on 02/11/17 15:35; Admin Dose 6 MG; Start 02/10/17 at 13:30 Amlodipine Besylate 10 mg 10 mg DAILY PO Last administered on 02/14/17 09:49; Admin Dose 10 MG; Start 02/10/17 at 13:30 Sodium Chloride 1,000 ml @ 60 mls/hr [id number] IV Last administered on 20:41; Admin Dose 60 MLS/HR; Start 02/10/17 at 13:30 Vancomycin HCl (Vancocin) 250 ml @ 125 mls/hr Q12H IVPB Last administered on 02/14/17 05:09; Admin Dose 125 MLS/HR; Start 02/10/17 at 17:00 Carvedilol (Coreg) 6.25 mg BID PO Last administered on 02/14/17 09:50; Admin Dose 6.25 MG; Start 02/10/17 at 21:00 Famotidine (Pepcid) 20 mg DAILY PO Last administered on 02/14/17 09:49; Admin Dose 20 MG; Start 02/12/17 at 09:00 Miscellaneous Information (*Rx Drug Level Order Reminder*) VANCOMYCIN TROUGH AT 0400 ONCE ONCE XX ; Start 02/15/17 at 04:00; Stop 02/15/17 at 04:01 FLOYD HUNT NP Feb 14, 2017 16:24
[2017-02-14] MEDS: SOD CHLORIDE 0.45% 1,000 ML IV SCH (17:30)
[2017-02-14 20:15] VITALS: BP 185/88; RESP 18
[2017-02-14] MEDS: LORAZEPAM 1 MG TAB PO SCH (21:00)
[2017-02-15 02:15] VITALS: BP 160/81; RESP 18
--- NOTE | 2017-02-15 04:03 | PN ---
DATE: 02/14/2017 SUBJECTIVE: The patient currently stated improvement in abdominal pain. Patient takes Tylenol for pain. Still has abdominal pain; however, denies nausea and vomiting, stated some improvement in ilana etite. Unable to dictate vital signs due to computer system is down currently. OBJECTIVE: VITAL SIGNS: Unable to dictate vital signs due to computer system is down currently. However, vital signs during the rounds earlier were within normal limits. GENERAL: Well-developed, well-nourished female in no acute distress. CHEST: Lungs clear bilaterally. There is no rhonchi, wheezes noted. HEART: Normal S1, S2. No murmurs. ABDOMEN: Round, soft. Abdominal wound with dry, clean and intact dressing. EXTREMITIES: No edema. ASSESSMENT AND PLAN: Status post hysterectomy a couple of weeks ago with postoperative abdominal in fection. Dr. Salazar is following in general surgery consultation, status post incision and drainage . Dr. Caicedo is following in infectious disease consultation. Continue antibiotics until 7 per infectious disease recommendations. Patient will arrange for continuation of antibiotics for home health. 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 Continue sequential compression device for deep venous thrombosis prophylaxis. Further recommendations based on clinic al course. Plan of care discussed with Dr. Chapman. Dictated By: ANGY GONCALVES PRODUCT CONSULTANT for SHANEKA CHAPMAN MD SR/NTS Conf#: [id number] DID#: [id number]
[2017-02-15 04:08] LABS: CALCIUM 9.4 mg/dl (8.4-10.2); CREATININE 0.93 mg/dl (0.44-1.00); POTASSIUM 3.6 mmol/L (3.5-5.1)
[2017-02-15 04:14] LABS: BASOPHILS % 0.3 % (0.0-2.0); EOSINOPHILS # 0.1 10^3/ul (0.0-0.5); EOSINOPHILS % 0.9 % (0.0-7.0); HEMATOCRIT 31.8 % (37.0-47.0); HEMOGLOBIN 9.8 g/dl (12.0-16.0); LYMPHOCYTES # 1.2 10^3/ul (0.8-2.9); LYMPHOCYTES % 9.6 % (15.0-51.0); MEAN CORPUSCULAR HEMOGLOBIN 24.1 pg (29.0-33.0); MEAN CORPUSCULAR HGB CONC 30.8 g/dl (32.0-37.0); MEAN CORPUSCULAR VOLUME 78.3 fl (82.0-101.0); MONOCYTE # 1.3 10^3/ul (0.3-0.9); MONOCYTES % 10.8 % (0.0-11.0); NEUTROPHIL # 9.4 10^3/ul (1.6-7.5); NEUTROPHILS % 77.7 % (39.0-77.0); PLATELET COUNT 353 10^3/UL (140-415); RED BLOOD COUNT 4.06 10^6/ul (4.20-5.40); RED CELL DISTRIBUTION WIDTH 18.8 % (11.5-14.5); WHITE BLOOD COUNT 12.1 10^3/ul (4.8-10.8)
[2017-02-15] MEDS: VANCOMYCIN 1 GM in NS 250 ML IVPB SCH ×2 (05:00→16:54)
[2017-02-15] MEDS: SOD CHLORIDE 0.45% 1,000 ML IV SCH (06:23)
[2017-02-15 07:51] VITALS: BP 156/84; RESP 18
[2017-02-15] MEDS: FAMOTIDINE 20 MG TAB PO SCH (09:36)
[2017-02-15] MEDS: ASCORBIC ACID 500 MG TAB PO SCH ×2 (09:36→21:37)
[2017-02-15] MEDS: AMLODIPINE 10 MG TAB PO SCH (09:36)
[2017-02-15] MEDS: ZINC SULFATE 220 MG CAP PO SCH (09:36)
[2017-02-15] MEDS: MULTIVITAMINS/MINERALS TAB PO SCH (09:36)
[2017-02-15] MEDS: SODIUM HYPOCHLORITE 1/40% 1L IRRIG IRR SCH ×2 (09:37→21:36)
[2017-02-15] MEDS: LOSARTAN 50 MG TAB PO SCH ×2 (09:37→21:37)
[2017-02-15] MEDS: ENOXAPARIN 30 MG/0.3 ML SYG SC SCH (09:43)
--- NOTE | 2017-02-15 12:07 | PN ---
Date/Time of Note Date/Time of Note DATE: 02/15/17 TIME: 12:06 Assessment/Plan VTE Prophylaxis VTE Prophylaxis Intervention: SCD's Lines/Catheters IV Catheter Type (from Nrs): PICC Line Central line still needed: Yes Urinary Cath still in place: No Assessment/Plan Chief Complaint/Hosp Course Patient's pain is well controlled, anticipate discharge home was home health IV services for completion of vancomycin and wound care when arranged by case management. Assessment/Plan -Hepatic hemangioma. -Sepsis with shock, resolving. Dr. Caicedo is following in infection disease consultation. -Anemia, status post blood transfusion. - Wound abscess. Status post I&D by Dr. Reyna. Continue current wound care and antibiotics. Dr. Reyna is following in general surgery consultation. - Status post total abdominal hysterectomy on 01/[address] Mckeon at [facility]. - Hypertension, continue Cozaar, Coreg and Norvasc. Further recommendations based on clinical course. Plan of care is discussed by Dr. Geronimo. Problems: Exam/Review of Systems Vital Signs Vitals Vital Signs Date Time Temp Pulse Resp B/P Pulse Ox O2 Delivery O2 Flow Rate FiO2 02/15/17 07:51 98.3 70 18 156/84 96 Intake and Output 02/14/17 02/14/17 02/15/17 15:00 23:00 07:00 Intake Total 1310 ml Balance 1310 ml Exam Constitutional: alert, oriented Respiratory: normal air movement Cardiovascular: nl pulses Gastrointestinal: non-tender, soft Musculoskeletal: nl extremities to inspection Skin: other (Large lower abdominal wound) Results Result Diagram: 02/15/17 0340 02/15/17 0340 Results 24 hrs Laboratory Tests Test 02/15/17 03:40 White Blood Count 12.1 H Red Blood Count 4.06 L Hemoglobin 9.8 L Hematocrit 31.8 L Mean Corpuscular Volume 78.3 L Mean Corpuscular Hemoglobin 24.1 L Mean Corpuscular Hemoglobin Concent 30.8 L Red Cell Distribution Width 18.8 H Platelet Count 353 Mean Platelet Volume 11.0 H Neutrophils % 77.7 H Lymphocytes % 9.6 L Monocytes % 10.8 Eosinophils % 0.9 Basophils % 0.3 Nucleated Red Blood Cells % 0.0 Neutrophils # 9.4 H Lymphocytes # 1.2 Monocytes # 1.3 H Eosinophils # 0.1 Basophils # 0.0 Nucleated Red Blood Cells # 0.0 Sodium Level 142 Potassium Level 3.6 Chloride Level 104 Carbon Dioxide Level 28 Anion Gap 14 Blood Urea Nitrogen 12 Creatinine 0.93 Glucose Level 93 Calcium Level 9.4 Vancomycin Level Trough 12.7 Medications Medications Current Medications Ondansetron HCl (Zofran Inj) 4 mg Q6H PRN IV NAUSEA AND/OR VOMITING Last administered on 02/11/17 21:02; Admin Dose 4 MG; Start 02/04/17 at 21:00 Acetaminophen (Tylenol Tab) 650 mg Q6H PRN PO PAIN LEVEL 1-3 OR FEVER Last administered on 02/14/17 09:59; Admin Dose 650 MG; Start 02/04/17 at 21:00 Morphine Sulfate (morphine) 2 mg Q4H PRN IV SEVERE PAIN LEVEL 7-10 Last administered on 02/11/17 21:02; Admin Dose 2 MG; Start 02/04/17 at 21:00 Enoxaparin Sodium (Lovenox) 30 mg DAILY SC Last administered on 02/15/17 09:43 ; Admin Dose 30 MG; Start 02/05/17 at 09:00 Lorazepam (Ativan) 1 mg HS PO Last administered on 02/11/17 21:02; Admin Dose 1 MG; Start 02/07/17 at 21:00 Multivitamins/ Minerals (Theragran-M) 1 tab DAILY PO Last administered on 09:36; Admin Dose 1 TAB; Start 02/07/17 at 18:30 Ascorbic Acid (Vitamin C) 500 mg BID PO Last administered on 02/15/17 09:36; Admin Dose 500 MG; Start 02/07/17 at 21:00 Zinc Sulfate (Zinc Sulfate) 220 mg DAILY PO Last administered on 02/15/17 09: 36; Admin Dose 220 MG; Start 02/08/17 at 09:00 Tramadol HCl (Ultram) 50 mg Q4 PRN PO PAIN Last administered on 02/07/17 23: 37; Admin Dose 50 MG; Start 02/07/17 at 23:00 Sodium Hypochlorite (Dakin'S (Dilute 1/40%)) 1 applic BID IRR Last administered on 02/15/17 09:37; Admin Dose 1 APPLIC; Start 02/08/17 at 09:00; Stop 02/17/17 at 08:59 Acetaminophen/ Hydrocodone Bitart ([place] (5/325)) 1 tab Q4H PRN PO PAIN Last administered on 02/12/17 08:16; Admin Dose 1 TAB; Start 02/08/17 at 12:30 IV Flush (NS 10 ml) 10 ml PRN PRN IV IV PROTOCOL; Start 02/08/17 at 15:00 Acetaminophen/ Hydrocodone Bitart ([place] (5/325)) 2 tab Q4H PRN PO SEVERE PAIN LEVEL 7-10 Last administered on 02/11/17 06:35; Admin Dose 2 TAB; Start at 15:00 Hydralazine HCl (Apresoline) 10 mg Q6H PRN IV FOR SBP >170 Last administered on 02/10/17 14:38; Admin Dose 10 MG; Start 02/09/17 at 15:00 Losartan Potassium (Cozaar) 50 mg BID PO Last administered on 02/15/17 09:37; Admin Dose 50 MG; Start 02/09/17 at 21:00 Sumatriptan Succinate (Imitrex) 6 mg PRN PRN SC HEADACHE Last administered on 02/11/17 15:35; Admin Dose 6 MG; Start 02/10/17 at 13:30 Amlodipine Besylate 10 mg 10 mg DAILY PO Last administered on 02/15/17 09:36; Admin Dose 10 MG; Start 02/10/17 at 13:30 Sodium Chloride 1,000 ml @ 60 mls/hr [id number] IV Last administered on 06:23; Admin Dose 60 MLS/HR; Start 02/10/17 at 13:30 Vancomycin HCl (Vancocin) 250 ml @ 125 mls/hr Q12H IVPB Last administered on 02/15/17 05:00; Admin Dose 125 MLS/HR; Start 02/10/17 at 17:00 Carvedilol (Coreg) 6.25 mg BID PO Last administered on 02/15/17 09:37; Admin Dose 6.25 MG; Start 02/10/17 at 21:00 Famotidine (Pepcid) 20 mg DAILY PO Last administered on 02/15/17 09:36; Admin Dose 20 MG; Start 02/12/17 at 09:00 ANGY GONCALVES Feb 15, 2017 12:07
[2017-02-15] MEDS: ACETAMINOPHEN 325 MG TAB PO PRN (12:34)
[2017-02-15 14:00] VITALS: BP 130/71; RESP 18
[2017-02-15] MEDS: HYDROCODONE/APAP (5/325) TAB PO PRN (16:54)
--- NOTE | 2017-02-15 18:19 | PN ---
Date/Time of Note Date/Time of Note DATE: 02/13/17 TIME: 10:42 Assessment/Plan Lines/Catheters IV Catheter Type (from [facility]): PICC Line Urinary Cath still in place: No Assessment/Plan Assessment/Plan -Liver mass per CT from 02/10. Liver abscess? Continue current antibiotics. Follow-up ID and surgical recommendations. - CT 02/12- showed Hemangioma - per GI -Sepsis with shock, resolving. Dr. Caicedo is following in infection disease consultation. -Anemia, status post blood transfusion. - Wound abscess. Status post I&D by Dr. Reyna. Continue current wound care and antibiotics. Dr. Reyna is following in general surgery consultation. - Status post total abdominal hysterectomy on 01/[address] Mckeon at [facility]. - Hypertension, continue Cozaar, Coreg and Norvasc. Further recommendations based on clinical course. Plan of care is discussed by Dr. Geronimo. Exam/Review of Systems Vital Signs Vitals Vital Signs Date Time Temp Pulse Resp B/P Pulse Ox O2 Delivery O2 Flow Rate FiO2 02/13/17 07:37 98.2 67 17 150/78 95 02/10/17 12:45 Room Air Intake and Output 02/12/17 02/12/17 02/13/17 15:00 23:00 07:00 Intake Total 300 ml 1550 ml 1170 ml Balance 300 ml 1550 ml 1170 ml Results Result Diagram: 02/13/17 0653 02/13/17 0653 Results 24 hrs Laboratory Tests Test 02/13/17 06:53 White Blood Count 13.7 H Red Blood Count 4.01 L Hemoglobin 9.6 L Hematocrit 31.6 L Mean Corpuscular Volume 78.8 L Mean Corpuscular Hemoglobin 23.9 L Mean Corpuscular Hemoglobin Concent 30.4 L Red Cell Distribution Width 18.8 H Platelet Count 398 Mean Platelet Volume 10.9 H Neutrophils % 75.9 Lymphocytes % 11.6 L Monocytes % 8.3 Eosinophils % 1.6 Basophils % 0.6 Nucleated Red Blood Cells % 0.0 Neutrophils # 10.4 H Lymphocytes # 1.6 Monocytes # 1.1 H Eosinophils # 0.2 Basophils # 0.1 Nucleated Red Blood Cells # 0.0 Sodium Level 143 Potassium Level 3.6 Chloride Level 104 Carbon Dioxide Level 31 Anion Gap 12 Blood Urea Nitrogen 6 L Creatinine 0.87 Glucose Level 85 Calcium Level 9.3 Medications Medications Current Medications Ondansetron HCl (Zofran Inj) 4 mg Q6H PRN IV NAUSEA AND/OR VOMITING Last administered on 02/11/17 21:02; Admin Dose 4 MG; Start 02/04/17 at 21:00 Acetaminophen (Tylenol Tab) 650 mg Q6H PRN PO PAIN LEVEL 1-3 OR FEVER Last administered on 02/13/17 06:09; Admin Dose 650 MG; Start 02/04/17 at 21:00 Morphine Sulfate (morphine) 2 mg Q4H PRN IV SEVERE PAIN LEVEL 7-10 Last administered on 02/11/17 21:02; Admin Dose 2 MG; Start 02/04/17 at 21:00 Enoxaparin Sodium (Lovenox) 30 mg DAILY SC Last administered on 02/13/17 09:53 ; Admin Dose 30 MG; Start 02/05/17 at 09:00 Lorazepam (Ativan) 1 mg HS PO Last administered on 02/11/17 21:02; Admin Dose 1 MG; Start 02/07/17 at 21:00 Multivitamins/ Minerals (Theragran-M) 1 tab DAILY PO Last administered on 09:26; Admin Dose 1 TAB; Start 02/07/17 at 18:30 Ascorbic Acid (Vitamin C) 500 mg BID PO Last administered on 02/13/17 09:26; Admin Dose 500 MG; Start 02/07/17 at 21:00 Zinc Sulfate (Zinc Sulfate) 220 mg DAILY PO Last administered on 02/13/17 09: 26; Admin Dose 220 MG; Start 02/08/17 at 09:00 Tramadol HCl (Ultram) 50 mg Q4 PRN PO PAIN Last administered on 02/07/17 23: 37; Admin Dose 50 MG; Start 02/07/17 at 23:00 Sodium Hypochlorite (Dakin'S (Dilute 1/40%)) 1 applic BID IRR Last administered on 02/13/17 09:25; Admin Dose 1 APPLIC; Start 02/08/17 at 09:00; Stop 02/17/17 at 08:59 Acetaminophen/ Hydrocodone Bitart ([place] (5/325)) 1 tab Q4H PRN PO PAIN Last administered on 02/12/17 08:16; Admin Dose 1 TAB; Start 02/08/17 at 12:30 IV Flush (NS 10 ml) 10 ml PRN PRN IV IV PROTOCOL; Start 02/08/17 at 15:00 Acetaminophen/ Hydrocodone Bitart ([place] (5/325)) 2 tab Q4H PRN PO SEVERE PAIN LEVEL 7-10 Last administered on 02/11/17 06:35; Admin Dose 2 TAB; Start at 15:00 Hydralazine HCl (Apresoline) 10 mg Q6H PRN IV FOR SBP >170 Last administered on 02/10/17 14:38; Admin Dose 10 MG; Start 02/09/17 at 15:00 Losartan Potassium (Cozaar) 50 mg BID PO Last administered on 02/13/17 09:27; Admin Dose 50 MG; Start 02/09/17 at 21:00 Sumatriptan Succinate (Imitrex) 6 mg PRN PRN SC HEADACHE Last administered on 02/11/17 15:35; Admin Dose 6 MG; Start 02/10/17 at 13:30 Amlodipine Besylate 10 mg 10 mg DAILY PO Last administered on 02/13/17 09:28; Admin Dose 10 MG; Start 02/10/17 at 13:30 Sodium Chloride 1,000 ml @ 60 mls/hr [id number] IV Last administered on 23:50; Admin Dose 60 MLS/HR; Start 02/10/17 at 13:30 Vancomycin HCl (Vancocin) 250 ml @ 125 mls/hr Q12H IVPB Last administered on 02/13/17 05:59; Admin Dose 125 MLS/HR; Start 02/10/17 at 17:00 Carvedilol (Coreg) 6.25 mg BID PO Last administered on 02/13/17 09:28; Admin Dose 6.25 MG; Start 02/10/17 at 21:00 Famotidine (Pepcid) 20 mg DAILY PO Last administered on 02/13/17 09:26; Admin Dose 20 MG; Start 02/12/17 at 09:00 MARIKA LEBRON Feb 13, 2017 10:52
--- NOTE | 2017-02-15 18:28 | CONS ---
Date/Time of Note Date/Time of Note DATE: 02/15/17 TIME: 18:20 Assessment/Plan Assessment/Plan Additional Assessment/Plan - Large subcutaneous and rectus abdominous anterior fluid collection measuring 19 cm transverse by 4.6 cm AP by 6.9 cm in superior inferior dimensions. Differential to include abscess, infected seroma or hematoma. S/p spontaneous drainage and suction 02/05/2017. Cx + CoNS and GHS - resolving - S/p hysterectomy 01/25/2017 at [facility] - 5.7 x 5.3 x 7.4 cm right hepatic lobe mass consistent with a large hemangioma. Otherwise, no evidence of hepatic lesions per CT - Persistent leukocytosis likely reactive (remains afebrile) - H/o Migraines - Accelerated HTN - improving Recommendations: - finish 14 days of IV Vanco through 02.19.17 - continue local wound care - probiotics - okay for d/c from ID standpoint on IV Vanco, pharmacy to dose, with outpatient ID f/u Anticipate discharge tomorrow with home health. Management d/w patient BRENDAN Garza- charge/Dr. Caicedo Consultation Date/Type/Reason Admit Date/Time Feb 04, 2017 at 21:02 Initial Consult Date 02/08/17 Type of Consultation: Infectious Disease Referring Provider: ANGY GONCALVES 24 HR Interval Summary Free Text/Dictation sitting up in chair, c/o migraine headache, abdominal wound pain, some drainage , will be going home tomorrow with Home Health services - Denies chest pain, shortness of breath, fever, n/v/d, dysuria. -dw staff Detailed Summary Respiratory: no complaints Cardiovascular: no complaints Gastrointestinal: no complaints Neurologic: headache Exam/Review of Systems Vital Signs Vitals Vital Signs Date Time Temp Pulse Resp B/P Pulse Ox O2 Delivery O2 Flow Rate FiO2 02/15/17 14:00 98.5 70 18 130/71 95 Intake and Output 02/14/17 02/14/17 02/15/17 15:00 23:00 07:00 Intake Total 1310 ml Balance 1310 ml Exam Constitutional: alert, oriented, well developed Respiratory: diminished breath sounds, normal air movement Cardiovascular: nl pulses Gastrointestinal: soft, tender Musculoskeletal: nl extremities to inspection Neurological: nl mental status, nl speech Results Result Diagram: 02/15/17 0340 02/15/17 0340 Results 24 hrs Laboratory Tests Test 02/15/17 03:40 White Blood Count 12.1 H Red Blood Count 4.06 L Hemoglobin 9.8 L Hematocrit 31.8 L Mean Corpuscular Volume 78.3 L Mean Corpuscular Hemoglobin 24.1 L Mean Corpuscular Hemoglobin Concent 30.8 L Red Cell Distribution Width 18.8 H Platelet Count 353 Mean Platelet Volume 11.0 H Neutrophils % 77.7 H Lymphocytes % 9.6 L Monocytes % 10.8 Eosinophils % 0.9 Basophils % 0.3 Nucleated Red Blood Cells % 0.0 Neutrophils # 9.4 H Lymphocytes # 1.2 Monocytes # 1.3 H Eosinophils # 0.1 Basophils # 0.0 Nucleated Red Blood Cells # 0.0 Sodium Level 142 Potassium Level 3.6 Chloride Level 104 Carbon Dioxide Level 28 Anion Gap 14 Blood Urea Nitrogen 12 Creatinine 0.93 Glucose Level 93 Calcium Level 9.4 Vancomycin Level Trough 12.7 Medications Medications Current Medications Ondansetron HCl (Zofran Inj) 4 mg Q6H PRN IV NAUSEA AND/OR VOMITING Last administered on 02/11/17 21:02; Admin Dose 4 MG; Start 02/04/17 at 21:00 Acetaminophen (Tylenol Tab) 650 mg Q6H PRN PO PAIN LEVEL 1-3 OR FEVER Last administered on 02/15/17 12:34; Admin Dose 650 MG; Start 02/04/17 at 21:00 Morphine Sulfate (morphine) 2 mg Q4H PRN IV SEVERE PAIN LEVEL 7-10 Last administered on 02/11/17 21:02; Admin Dose 2 MG; Start 02/04/17 at 21:00 Enoxaparin Sodium (Lovenox) 30 mg DAILY SC Last administered on 02/15/17 09:43 ; Admin Dose 30 MG; Start 02/05/17 at 09:00 Lorazepam (Ativan) 1 mg HS PO Last administered on 02/11/17 21:02; Admin Dose 1 MG; Start 02/07/17 at 21:00 Multivitamins/ Minerals (Theragran-M) 1 tab DAILY PO Last administered on 09:36; Admin Dose 1 TAB; Start 02/07/17 at 18:30 Ascorbic Acid (Vitamin C) 500 mg BID PO Last administered on 02/15/17 09:36; Admin Dose 500 MG; Start 02/07/17 at 21:00 Zinc Sulfate (Zinc Sulfate) 220 mg DAILY PO Last administered on 02/15/17 09: 36; Admin Dose 220 MG; Start 02/08/17 at 09:00 Tramadol HCl (Ultram) 50 mg Q4 PRN PO PAIN Last administered on 02/07/17 23: 37; Admin Dose 50 MG; Start 02/07/17 at 23:00 Sodium Hypochlorite (Dakin'S (Dilute 1/40%)) 1 applic BID IRR Last administered on 02/15/17 09:37; Admin Dose 1 APPLIC; Start 02/08/17 at 09:00; Stop 02/17/17 at 08:59 Acetaminophen/ Hydrocodone Bitart ([place] (5/325)) 1 tab Q4H PRN PO PAIN Last administered on 02/12/17 08:16; Admin Dose 1 TAB; Start 02/08/17 at 12:30 IV Flush (NS 10 ml) 10 ml PRN PRN IV IV PROTOCOL; Start 02/08/17 at 15:00 Acetaminophen/ Hydrocodone Bitart ([place] (5/325)) 2 tab Q4H PRN PO SEVERE PAIN LEVEL 7-10 Last administered on 02/15/17 16:54; Admin Dose 2 TAB; Start at 15:00 Hydralazine HCl (Apresoline) 10 mg Q6H PRN IV FOR SBP >170 Last administered on 02/10/17 14:38; Admin Dose 10 MG; Start 02/09/17 at 15:00 Losartan Potassium (Cozaar) 50 mg BID PO Last administered on 02/15/17 09:37; Admin Dose 50 MG; Start 02/09/17 at 21:00 Sumatriptan Succinate (Imitrex) 6 mg PRN PRN SC HEADACHE Last administered on 02/11/17 15:35; Admin Dose 6 MG; Start 02/10/17 at 13:30 Amlodipine Besylate 10 mg 10 mg DAILY PO Last administered on 02/15/17 09:36; Admin Dose 10 MG; Start 02/10/17 at 13:30 Sodium Chloride 1,000 ml @ 60 mls/hr [id number] IV Last administered on 06:23; Admin Dose 60 MLS/HR; Start 02/10/17 at 13:30 Vancomycin HCl (Vancocin) 250 ml @ 125 mls/hr Q12H IVPB Last administered on 02/15/17 16:54; Admin Dose 125 MLS/HR; Start 02/10/17 at 17:00 Carvedilol (Coreg) 6.25 mg BID PO Last administered on 02/15/17 09:37; Admin Dose 6.25 MG; Start 02/10/17 at 21:00 Famotidine (Pepcid) 20 mg DAILY PO Last administered on 02/15/17 09:36; Admin Dose 20 MG; Start 02/12/17 at 09:00 MARIKA LEBRON Feb 15, 2017 18:28
[2017-02-15 20:00] VITALS: BP 131/74; RESP 18
[2017-02-15 20:23] VITALS: BP 130/70; PULSE 68; RESP 18
[2017-02-15] MEDS: LORAZEPAM 1 MG TAB PO SCH (21:00)
[2017-02-16] MEDS: SOD CHLORIDE 0.45% 1,000 ML IV SCH ×2 (02:14→19:30)
[2017-02-16 02:25] VITALS: BP 151/75; RESP 18
[2017-02-16] MEDS: VANCOMYCIN 1 GM in NS 250 ML IVPB SCH ×2 (04:48→17:11)
[2017-02-16 07:55] VITALS: BP 146/71; RESP 18
[2017-02-16] MEDS: ZINC SULFATE 220 MG CAP PO SCH (10:17)
[2017-02-16] MEDS: AMLODIPINE 10 MG TAB PO SCH (10:17)
[2017-02-16] MEDS: MULTIVITAMINS/MINERALS TAB PO SCH (10:18)
[2017-02-16] MEDS: ASCORBIC ACID 500 MG TAB PO SCH ×2 (10:18→20:58)
[2017-02-16] MEDS: FAMOTIDINE 20 MG TAB PO SCH (10:18)
[2017-02-16] MEDS: LOSARTAN 50 MG TAB PO SCH ×2 (10:19→20:59)
[2017-02-16] MEDS: SODIUM HYPOCHLORITE 1/40% 1L IRRIG IRR SCH ×2 (10:19→20:57)
[2017-02-16] MEDS: ENOXAPARIN 30 MG/0.3 ML SYG SC SCH (10:30)
[2017-02-16 12:57] LABS: BASOPHIL # 0.1 10^3/ul (0.0-0.1); BASOPHILS % 0.7 % (0.0-2.0); EOSINOPHILS # 0.1 10^3/ul (0.0-0.5); EOSINOPHILS % 1.3 % (0.0-7.0); HEMOGLOBIN 10.1 g/dl (12.0-16.0); LYMPHOCYTES # 0.9 10^3/ul (0.8-2.9); LYMPHOCYTES % 12.3 % (15.0-51.0); MEAN CORPUSCULAR HEMOGLOBIN 24.2 pg (29.0-33.0); MEAN CORPUSCULAR HGB CONC 30.6 g/dl (32.0-37.0); MEAN CORPUSCULAR VOLUME 78.9 fl (82.0-101.0); MEAN PLATELET VOLUME 10.9 fl (7.4-10.4); MONOCYTES % 12.8 % (0.0-11.0); NEUTROPHIL # 5.4 10^3/ul (1.6-7.5); PLATELET COUNT 331 10^3/UL (140-415); RED BLOOD COUNT 4.18 10^6/ul (4.20-5.40); RED CELL DISTRIBUTION WIDTH 18.8 % (11.5-14.5); WHITE BLOOD COUNT 7.5 10^3/ul (4.8-10.8)
--- NOTE | 2017-02-16 13:03 | CONS ---
Date/Time of Note Date/Time of Note DATE: 02/16/17 TIME: 12:50 Assessment/Plan Assessment/Plan Additional Assessment/Plan - Large subcutaneous and rectus abdominous anterior fluid collection measuring 19 cm transverse by 4.6 cm AP by 6.9 cm in superior inferior dimensions. Differential to include abscess, infected seroma or hematoma. S/p spontaneous drainage and suction 02/05/2017. Cx + CoNS and GHS - resolving - S/p hysterectomy 01/25/2017 at [facility] - 5.7 x 5.3 x 7.4 cm right hepatic lobe mass consistent with a large hemangioma. Otherwise, no evidence of hepatic lesions per CT - Persistent leukocytosis likely reactive (remains afebrile) - H/o Migraines - Accelerated HTN - improving Recommendations: - finish 14 days of IV Vanco through 02.19.17 - continue local wound care - probiotics - okay for d/c from ID standpoint on IV Vanco, pharmacy to dose, with outpatient ID f/u- talked to patient and will fu with his Primary. Has no ID MD , will fu with her primary for blood test, Anticipate discharge tomorrow with home health.Management d/w patient BRENDAN Garza - charge/Dr. Caicedo Consultation Date/Type/Reason Admit Date/Time Feb 04, 2017 at 21:02 Initial Consult Date 02/08/17 Type of Consultation: Infectious Disease Referring Provider: ANGY GONCALVES 24 HR Interval Summary Free Text/Dictation slightly febrile, wbc trended down,- dw staff Detailed Summary Respiratory: no complaints Cardiovascular: no complaints Gastrointestinal: pain Genitourinary: no complaints Musculoskeletal: no complaints Exam/Review of Systems Vital Signs Vitals Vital Signs Date Time Temp Pulse Resp B/P Pulse Ox O2 Delivery O2 Flow Rate FiO2 02/16/17 07:55 99.5 72 18 146/71 94 02/15/17 20:23 Room Air Intake and Output 02/15/17 02/15/17 02/16/17 15:00 23:00 07:00 Intake Total 2350 ml 650 ml Output Total 1200 ml 850 ml Balance 1150 ml -200 ml Exam Constitutional: alert, obese, oriented Cardiovascular: nl pulses, other (s1s2) Gastrointestinal: other (surgical abdomen), soft Musculoskeletal: nl extremities to inspection Extremities: normal pulses Results Result Diagram: 02/15/17 03402/15/17 0340 Medications Medications Current Medications Ondansetron HCl (Zofran Inj) 4 mg Q6H PRN IV NAUSEA AND/OR VOMITING Last administered on 02/11/17 21:02; Admin Dose 4 MG; Start 02/04/17 at 21:00 Acetaminophen (Tylenol Tab) 650 mg Q6H PRN PO PAIN LEVEL 1-3 OR FEVER Last administered on 02/15/17 12:34; Admin Dose 650 MG; Start 02/04/17 at 21:00 Morphine Sulfate (morphine) 2 mg Q4H PRN IV SEVERE PAIN LEVEL 7-10 Last administered on 02/11/17 21:02; Admin Dose 2 MG; Start 02/04/17 at 21:00 Enoxaparin Sodium (Lovenox) 30 mg DAILY SC Last administered on 02/16/17 10:30 ; Admin Dose 30 MG; Start 02/05/17 at 09:00 Lorazepam (Ativan) 1 mg HS PO Last administered on 02/11/17 21:02; Admin Dose 1 MG; Start 02/07/17 at 21:00 Multivitamins/ Minerals (Theragran-M) 1 tab DAILY PO Last administered on 10:18; Admin Dose 1 TAB; Start 02/07/17 at 18:30 Ascorbic Acid (Vitamin C) 500 mg BID PO Last administered on 02/16/17 10:18; Admin Dose 500 MG; Start 02/07/17 at 21:00 Zinc Sulfate (Zinc Sulfate) 220 mg DAILY PO Last administered on 02/16/17 10: 17; Admin Dose 220 MG; Start 02/08/17 at 09:00 Tramadol HCl (Ultram) 50 mg Q4 PRN PO PAIN Last administered on 02/07/17 23: 37; Admin Dose 50 MG; Start 02/07/17 at 23:00 Sodium Hypochlorite (Dakin'S (Dilute 1/40%)) 1 applic BID IRR Last administered on 02/16/17 10:19; Admin Dose 1 APPLIC; Start 02/08/17 at 09:00; Stop 02/17/17 at 08:59 Acetaminophen/ Hydrocodone Bitart ([place] (5/325)) 1 tab Q4H PRN PO PAIN Last administered on 02/12/17 08:16; Admin Dose 1 TAB; Start 02/08/17 at 12:30 IV Flush (NS 10 ml) 10 ml PRN PRN IV IV PROTOCOL; Start 02/08/17 at 15:00 Acetaminophen/ Hydrocodone Bitart ([place] (5/325)) 2 tab Q4H PRN PO SEVERE PAIN LEVEL 7-10 Last administered on 02/15/17 16:54; Admin Dose 2 TAB; Start at 15:00 Hydralazine HCl (Apresoline) 10 mg Q6H PRN IV FOR SBP >170 Last administered on 02/10/17 14:38; Admin Dose 10 MG; Start 02/09/17 at 15:00 Losartan Potassium (Cozaar) 50 mg BID PO Last administered on 02/16/17 10:19; Admin Dose 50 MG; Start 02/09/17 at 21:00 Sumatriptan Succinate (Imitrex) 6 mg PRN PRN SC HEADACHE Last administered on 02/11/17 15:35; Admin Dose 6 MG; Start 02/10/17 at 13:30 Amlodipine Besylate 10 mg 10 mg DAILY PO Last administered on 02/16/17 10:17; Admin Dose 10 MG; Start 02/10/17 at 13:30 Sodium Chloride 1,000 ml @ 60 mls/hr [id number] IV Last administered on 02:14; Admin Dose 60 MLS/HR; Start 02/10/17 at 13:30 Vancomycin HCl (Vancocin) 250 ml @ 125 mls/hr Q12H IVPB Last administered on 02/16/17 04:48; Admin Dose 125 MLS/HR; Start 02/10/17 at 17:00 Carvedilol (Coreg) 6.25 mg BID PO Last administered on 02/16/17 10:18; Admin Dose 6.25 MG; Start 02/10/17 at 21:00 Famotidine (Pepcid) 20 mg DAILY PO Last administered on 02/16/17 10:18; Admin Dose 20 MG; Start 02/12/17 at 09:00 MARIKA LEBRON Feb 16, 2017 13:00
[2017-02-16 13:21] LABS: CALCIUM 8.9 mg/dl (8.4-10.2); CREATININE 0.78 mg/dl (0.44-1.00); POTASSIUM 3.8 mmol/L (3.5-5.1)
[2017-02-16 14:07] VITALS: BP 136/78; RESP 18
[2017-02-16] MEDS ORDERED: AMLO-147 PO (16:37)
[2017-02-16] MEDS ORDERED: MULT-843 PO (16:37)
[2017-02-16] MEDS ORDERED: LOSA50TA2 PO (16:37)
[2017-02-16] MEDS ORDERED: ZINC220C11 PO (16:37)
[2017-02-16] MEDS ORDERED: CARV6.2579 PO (16:37)
[2017-02-16] MEDS ORDERED: HYDR-3498 PO (16:37)
[2017-02-16 19:59] VITALS: BP 158/79; RESP 20
[2017-02-16] MEDS: LORAZEPAM 1 MG TAB PO SCH (20:57)
[2017-02-17 02:53] VITALS: BP 140/72; RESP 18
[2017-02-17] MEDS: VANCOMYCIN 1 GM in NS 250 ML IVPB SCH (04:42)
--- NOTE | 2017-02-17 07:08 | CONS ---
DATE OF ADMISSION: 02/04/2017 DATE OF CONSULTATION: 02/13/2017 SUBJECTIVE: No complaints. OBJECTIVE: VITAL SIGNS: Stable. ABDOMEN: Benign except for the anterior wall fluid collection, which is infected and draining spont aneously. LUNGS: Clear. CENTRAL NERVOUS SYSTEM: Grossly within normal limits. CARDIOVASCULAR: Normal. DIAGNOSTIC DATA: CT scan of the liver, 3 phase study, was consistent with the diagnosis of hemangio ma. Her CA 19-9, CEA level, and alpha fetoprotein all were within normal limits. IMPRESSION: 1. Liver mass, hemangioma. 2. Infected surgical wound, for which the patient is on antibiotic and has spontaneous drainage. 3. Status post hysterectomy. 4. Hypertension. PLAN: Continue antibiotic as per ID. Dictated By: JAISON DICKSON/NICOLE Conf#: [id number] DID#: [id number]
[2017-02-17 08:30] VITALS: BP 137/80; RESP 18
[2017-02-17] MEDS: FAMOTIDINE 20 MG TAB PO SCH (09:17)
[2017-02-17] MEDS: ASCORBIC ACID 500 MG TAB PO SCH (09:17)
[2017-02-17] MEDS: MULTIVITAMINS/MINERALS TAB PO SCH (09:17)
[2017-02-17] MEDS: ZINC SULFATE 220 MG CAP PO SCH (09:17)
[2017-02-17] MEDS: LOSARTAN 50 MG TAB PO SCH (09:18)
[2017-02-17] MEDS: AMLODIPINE 10 MG TAB PO SCH (09:18)
[2017-02-17] MEDS: ENOXAPARIN 30 MG/0.3 ML SYG SC SCH (09:35)
[2017-02-17] MEDS: SOD CHLORIDE 0.45% 1,000 ML IV SCH (12:10)
--- NOTE | 2017-02-17 14:15 | DS ---
Date/Time of Note Date/Time of Note DATE: 02/17/17 TIME: 14:11 Discharge Summary Admission/Discharge Info Admit Date/Time Feb 04, 2017 at 21:02 Discharge Date/Time Discharge Diagnosis -Hepatic hemangioma. -Sepsis with shock, resolving. -Anemia, status post blood transfusion. - Wound abscess. Status post I&D by Dr. Reyna. Continue current wound care and antibiotics. - Status post total abdominal hysterectomy on 01/[address] Mckeon at [facility]. - Hypertension, continue Cozaar, Coreg and Norvasc. Plan of care is discussed by Dr. Sy/ saff/patient Patient Condition: Stable Hospital Course - NAD,afebrile,pain is under control - hemodynamically stable - discharging home with home health IV services for completion of vancomycin and wound care. Home Meds Active Scripts Multivits,Ca,Minerals/Iron/FA (Thera M Plus Tablet) 1 Each Tablet, 1 TAB PO DAILY for 30 Days, TAB Prov:ANGY GONCALVES 02/16/17 Zinc Sulfate (ZINC-220) 220 Mg Cap, 220 MG PO DAILY for 14 Days, CAP Prov:ANGY GONCALVES 02/16/17 Losartan Potassium* (Cozaar*) 50 Mg Tablet, 50 MG PO BID for 30 Days, TAB Prov:ANGY GONCALVES 02/16/17 Hydrocodone Bit-Acetaminophen (Hydrocodone Bit-APAP) 5-325MG Tablet, 1 TAB PO Q4H Y for PAIN, #30 TAB Prov:ANGY GONCALVES 02/16/17 Amlodipine Besylate* (Amlodipine Besylate*) 10 Mg Tablet, 10 MG PO DAILY for 30 Days, TAB Prov:ANGY GONCALVES 02/16/17 Carvedilol* (Carvedilol*) 6.25 Mg Tablet, 6.25 MG PO BID for 30 Days, TAB Prov:ANGY GONCALVES 02/16/17 Reported Medications Famotidine* (Famotidine*) 20 Mg Tablet, 20 MG PO BID, #60 TAB 02/04/17 Ergocalciferol (Vitamin D) Unknown Strength Capsule, PO DAILY, CAP 02/04/17 Ascorbate Calcium (Calcium Ascorbate) 500 Mg Tablet, 500 MG PO DAILY, TAB 02/04/17 Cyanocobalamin* (Vitamin B12*) Unknown Strength Tab, PO DAILY, TAB 02/04/17 Discontinued Reported Medications Ibuprofen* (Ibuprofen*) 800 Mg Tab, 800 MG PO Q8H Y for PAIN, TAB 02/04/17 Acetaminophen* (Tylenol*) 500 Mg Tab, 1000 MG PO Q6H Y for NEEDED, TAB 02/04/17 Losartan Potassium* (Losartan Potassium*) 25 Mg Tablet, 25 MG PO BID, TAB 02/04/17 Hydrochlorothiazide* (Hydrochlorothiazide*) 50 Mg Tab, 50 MG PO DAILY, #30 TAB 02/04/17 Guaifenesin-Dextromethorphan* (Robafen* DM) 100MG/10MG/5ML Liquid, 10 ML PO DAILY Y for COUGH, ML 02/04/17 Ferrous Sulfate* (Ferrous Sulfate*) 325 Mg Tabec, 325 MG PO BID, TAB 02/04/17 Azelastine Hcl* (Azelastine Hcl*) 137 Mcg/0.137 Ml [place].pump, 2 SPRAYS NASAL BID, #1 EA TO EACH NOSTRIL 02/04/17 Primary Care Provider Melissa Keys Time spent on discharge: > 30 minutes MARIKA LEBRON Feb 17, 2017 14:15
--- NOTE | 2017-02-17 14:18 | PDOCDIS ---
Discharge Instructions DIAGNOSIS Discharge Diagnosis -Hepatic hemangioma. -Sepsis with shock, resolving. -Anemia, status post blood transfusion. - Wound abscess. Status post I&D by Dr. Reyna. Continue current wound care and antibiotics. - Status post total abdominal hysterectomy on 01/[address] Mckeon at [facility]. - Hypertension, continue Cozaar, Coreg and Norvasc. Plan of care is discussed by Dr. Sy/ saff/patient CONDITION Patient Condition: Stable HOME CARE INSTRUCTIONS: Diet Instructions: Low Fat /CholesterolSpecial Diet: Cardiac, low cholesterol ACTIVITY: Activity Restrictions: Slowly Increase Activity Rest between Activity Avoid heavy lifting Bathing Restrictions: Sponge Bath FOLLOW UP/APPOINTMENTS Follow-up Plan FU with Primary MD x 1week- CBC/BMP as well FU with surgery as recommended Call 911 or got to the nearest hospital if symptoms get worse. -patient verbalized understanding dc instructions. JONAS Schafer/staff REFERRALS Agency Name and Phone Number: [facility] (WOUND CARE) [phone] MARIKA LEBRON Feb 17, 2017 14:18
--- NOTE | 2017-02-17 14:27 | PN ---
Date/Time of Note Date/Time of Note LATE ENTRY FOR DATE: 02/16/17 Patient seen on 02/16/17 at 1630 Assessment/Plan VTE Prophylaxis VTE Prophylaxis Intervention: SCD's Lines/Catheters IV Catheter Type (from Nrsg): PICC Line Central line still needed: Yes Urinary Cath still in place: No Assessment/Plan Chief Complaint/Hosp Course Patient's pain is well controlled with Harmony, d/c planing, all questions answered. D/W housing case manager: home health is arranged for abx and wound care. Assessment/Plan -Hepatic hemangioma. -Sepsis with shock, resolving. Dr. Caicedo is following in infection disease consultation. -Anemia, status post blood transfusion. - Wound abscess. Status post I&D by Dr. Reyna. Continue current wound care and antibiotics. Dr. Reyna is following in general surgery consultation. - Status post total abdominal hysterectomy on 01/[address] Mckeon at [facility]. - Hypertension, continue Cozaar, Coreg and Norvasc. Further recommendations based on clinical course. Plan of care is discussed by Dr. Geronimo. Problems: Exam/Review of Systems Vital Signs Vitals Vital Signs Date Time Temp Pulse Resp B/P Pulse Ox O2 Delivery O2 Flow Rate FiO2 02/17/17 08:30 98.4 70 18 137/80 98 02/15/17 20:23 Room Air Intake and Output 02/16/17 02/16/17 02/17/17 15:00 23:00 07:00 Intake Total 2070 ml 1030 ml Output Total 1200 ml 500 ml Balance 870 ml 530 ml Exam Constitutional: alert, oriented Respiratory: normal air movement Cardiovascular: nl pulses Gastrointestinal: non-tender, soft Musculoskeletal: nl extremities to inspection Skin: other (Large lower abdominal wound) Results Result Diagram: 02/16/17 1249 02/16/17 1249 Medications Medications Current Medications Ondansetron HCl (Zofran Inj) 4 mg Q6H PRN IV NAUSEA AND/OR VOMITING Last administered on 02/11/17 21:02; Admin Dose 4 MG; Start 02/04/17 at 21:00 Acetaminophen (Tylenol Tab) 650 mg Q6H PRN PO PAIN LEVEL 1-3 OR FEVER Last administered on 02/15/17 12:34; Admin Dose 650 MG; Start 02/04/17 at 21:00 Morphine Sulfate (morphine) 2 mg Q4H PRN IV SEVERE PAIN LEVEL 7-10 Last administered on 02/11/17 21:02; Admin Dose 2 MG; Start 02/04/17 at 21:00 Enoxaparin Sodium (Lovenox) 30 mg DAILY SC Last administered on 02/17/17 09:35 ; Admin Dose 30 MG; Start 02/05/17 at 09:00 Lorazepam (Ativan) 1 mg HS PO Last administered on 02/11/17 21:02; Admin Dose 1 MG; Start 02/07/17 at 21:00 Multivitamins/ Minerals (Theragran-M) 1 tab DAILY PO Last administered on 09:17; Admin Dose 1 TAB; Start 02/07/17 at 18:30 Ascorbic Acid (Vitamin C) 500 mg BID PO Last administered on 02/17/17 09:17; Admin Dose 500 MG; Start 02/07/17 at 21:00 Zinc Sulfate (Zinc Sulfate) 220 mg DAILY PO Last administered on 02/17/17 09: 17; Admin Dose 220 MG; Start 02/08/17 at 09:00 Tramadol HCl (Ultram) 50 mg Q4 PRN PO PAIN Last administered on 02/07/17 23: 37; Admin Dose 50 MG; Start 02/07/17 at 23:00 Acetaminophen/ Hydrocodone Bitart (Harmony (5/325)) 1 tab Q4H PRN PO PAIN Last administered on 02/12/17 08:16; Admin Dose 1 TAB; Start 02/08/17 at 12:30 IV Flush (NS 10 ml) 10 ml PRN PRN IV IV PROTOCOL; Start 02/08/17 at 15:00 Acetaminophen/ Hydrocodone Bitart (Harmony (5/325)) 2 tab Q4H PRN PO SEVERE PAIN LEVEL 7-10 Last administered on 02/15/17 16:54; Admin Dose 2 TAB; Start at 15:00 Hydralazine HCl (Apresoline) 10 mg Q6H PRN IV FOR SBP >170 Last administered on 02/10/17 14:38; Admin Dose 10 MG; Start 02/09/17 at 15:00 Losartan Potassium (Cozaar) 50 mg BID PO Last administered on 02/17/17 09:18; Admin Dose 50 MG; Start 02/09/17 at 21:00 Sumatriptan Succinate (Imitrex) 6 mg PRN PRN SC HEADACHE Last administered on 02/11/17 15:35; Admin Dose 6 MG; Start 02/10/17 at 13:30 Amlodipine Besylate 10 mg 10 mg DAILY PO Last administered on 02/17/17 09:18; Admin Dose 10 MG; Start 02/10/17 at 13:30 Sodium Chloride 1,000 ml @ 60 mls/hr [id number] IV Last administered on 02:14; Admin Dose 60 MLS/HR; Start 02/10/17 at 13:30 Vancomycin HCl (Vancocin) 250 ml @ 125 mls/hr Q12H IVPB Last administered on 02/17/17 04:42; Admin Dose 125 MLS/HR; Start 02/10/17 at 17:00 Carvedilol (Coreg) 6.25 mg BID PO Last administered on 02/17/17 09:17; Admin Dose 6.25 MG; Start 02/10/17 at 21:00 Famotidine (Pepcid) 20 mg DAILY PO Last administered on 02/17/17 09:17; Admin Dose 20 MG; Start 02/12/17 at 09:00 ANGY GONCALVES Feb 17, 2017 14:27
--- NOTE | 2017-02-17 20:32 | CONS ---
Date/Time of Note Date/Time of Note DATE: 02/17/17 TIME: 20:32 Assessment/Plan Assessment/Plan Chief Complaint/Hosp Course 1. Large subcutaneous and rectus abdominous anterior fluid collection measuring 19 cm transverse by 4.6 cm AP by 6.9 cm in superior inferior dimensions. Differential to include abscess, infected seroma or hematoma.-- resolved 2. s/p hysterectomy 3. Hepatic Hemangioma R: finish 14 days of Vanco through 02.19.17 probiotics ok for d/c from id standpoint with outpatient id f/u Problems: Consultation Date/Type/Reason Admit Date/Time Feb 04, 2017 at 21:02 Initial Consult Date 02/08/17 Type of Consultation: Infectious Disease Referring Provider: ANGY GONCALVES Exam/Review of Systems Vital Signs Vitals Vital Signs Date Time Temp Pulse Resp B/P Pulse Ox O2 Delivery O2 Flow Rate FiO2 02/17/17 08:30 98.4 70 18 137/80 98 02/15/17 20:23 Room Air Intake and Output 02/16/17 02/16/17 02/17/17 14:59 22:59 06:59 Intake Total 2070 ml 1030 ml Output Total 1200 ml 500 ml Balance 870 ml 530 ml Exam Constitutional: alert, oriented, well developed Psych: nl mood/affect, no complaints Eyes: EOMI, PERRL, nl conjunctiva, nl lids, nl sclera Respiratory: clear to auscultation, normal air movement Cardiovascular: nl pulses, regular rate and rhythm Gastrointestinal: nl liver, spleen, non-tender, soft Results Result Diagram: 02/16/17 1249 02/16/17 1249 BETTINA GOINS MD Feb 17, 2017 20:32
== END 2017-02-17 16:00 | disposition home health service (06) | DRG 862 ==
LOC: E/R 16:04 → MS1 21:02 → ICU 02-05 09:27 → TEL 02-06 19:25 → MS1 02-09 18:13
PROVIDERS: ADMIT Pathology Anatomic Pathology & Clinical Pathology; ATTEND Internal Medicine
PROC: 02HV33Z Insertion of Infusion Device into Superior Vena Cava, Percutaneous Approach (ICD-10-PCS; principal; 2017-02-08)
DX: T81.4XXA Infection following a procedure, initial encounter (principal); K65.1 Peritoneal abscess; A41.9 Sepsis, unspecified organism; K65.9 Peritonitis, unspecified; R16.0 Hepatomegaly, not elsewhere classified; E86.0 Dehydration; I10 Essential (primary) hypertension; D64.9 Anemia, unspecified; R19.7 Diarrhea, unspecified; D72.829 Elevated white blood cell count, unspecified; D18.09 Hemangioma of other sites; N92.0 Excessive and frequent menstruation with regular cycle; Z90.710 Acquired absence of both cervix and uterus; Y83.8 Other surgical procedures as the cause of abnormal reaction of the patient, or of later complication, without mention of misadventure at the time of the procedure; Y92.009 Unspecified place in unspecified non-institutional (private) residence as the place of occurrence of the external cause
CPT/HCPCS: 36415; 36430; 36569; 71010; 74176; 74177; 74178; 76937; 80048; 80053; 80202; 81001; 82105; 82378; 83605; 83690; 84132; 85014; 85018; 85025; 85610; 85730; 86301; 86644; 86850; 86900; 86901; 86920; 87040; 87070; 87075; 87081; 87086; 96374; 96375; J0360; J1170; J1250; J1650; J1885; J2060; J2270; J2405; J2543; J3030; J3370; J3480; J7030; J7040; J7050; P9016; Q9967

== ENCOUNTER 2018-07-26 18:45 | Emergency (ER) | payer OTHER ==
[~2018-07-26] VITALS: Ht 162.6 cm; Wt 81.8 kg
[~2018-07-26 18:45] MED LIST changes: +AMLO-147 PO; +ASCO500T25 PO; +CARV6.2579 PO; +CHOL400C PO; +CYAN100T PO; -ERRIN PO; +FAMO20TA18 PO; +HYDR-3601 PO; +LOSA50TA2 PO; +MULT-843 PO; -PANT20TA2 PO; +ZINC220C11 PO
[2018-07-26 18:51] VITALS: Ht 162.6 cm; Wt 81.8 kg
[2018-07-26] MEDS ORDERED: IBUP-1542 PO (21:09)
[2018-07-26 21:25] VITALS: BP 127/74; PULSE 74; RESP 20
[2018-07-26] MEDS ORDERED: IBUPROFEN 600 MG TAB PO ONE (21:30)
--- NOTE | 2018-07-27 00:01 | ERD ---
ER Documentation Chief Complaint Chief Complaint c/o right ankle pain stepped into divit today. +swelling. HPI 52-year-old female presents with complaint of right ankle pain. States that she stepped in pothole today. In addition she states there is some swelling. Pain is made worse with ambulation she is having difficulty walking. Denies any treatments. States that she does not want pain medication. Denies numbness, tingling, pallor, cyanosis. Denies medical problems. Denies allergies. ROS All systems reviewed and are negative except as per history of present illness. Medications Home Meds Active Scripts Ibuprofen* (Motrin*) 600 Mg Tab, 600 MG PO Q6 for pain, #30 TAB Prov:JAVED JOHNSTON 07/26/18 Multivits,Ca,Minerals/Iron/FA (Thera M Plus Tablet) 1 Each Tablet, 1 TAB PO DAILY for 30 Days, TAB Prov:ANGY GONCALVES 02/16/17 Zinc Sulfate (ZINC-220) 220 Mg Cap, 220 MG PO DAILY for 14 Days, CAP Prov:ANGY GONCALVES 02/16/17 Losartan Potassium* (Cozaar*) 50 Mg Tablet, 50 MG PO BID for 30 Days, TAB Prov:ANGY GONCALVES 02/16/17 Hydrocodone Bit-Acetaminophen (Hydrocodone Bit-APAP) 5-325MG Tablet, 1 TAB PO Q4H PRN for PAIN, #30 TAB Prov:ANGY GONCALVES 02/16/17 Amlodipine Besylate* (Amlodipine Besylate*) 10 Mg Tablet, 10 MG PO DAILY for 30 Days, TAB Prov:ANGY GONCALVES 02/16/17 Carvedilol* (Carvedilol*) 6.25 Mg Tablet, 6.25 MG PO BID for 30 Days, TAB Prov:ANGY GONCALVES 02/16/17 Reported Medications Famotidine* (Famotidine*) 20 Mg Tablet, 20 MG PO BID, #60 TAB 02/04/17 Ergocalciferol (Vitamin D) Unknown Strength Capsule, PO DAILY, CAP 02/04/17 Ascorbate Calcium (Calcium Ascorbate) 500 Mg Tablet, 500 MG PO DAILY, TAB 02/04/17 Cyanocobalamin* (Vitamin B12*) Unknown Strength Tab, PO DAILY, TAB 02/04/17 Allergies Allergies: Coded Allergies: oxycodone (Verified Allergy, Unknown, 07/26/18) PMhx/Soc History of Surgery: Yes (HYSTERECTOMY AND CHOLECYSTECTOMY ) Anesthesia Reaction: No Hx Neurological Disorder: No Hx Respiratory Disorders: No Hx Cardiac Disorders: No Hx Psychiatric Problems: No Hx Miscellaneous Medical Probl: Yes (HTN) Hx Alcohol Use: No Hx Substance Use: No Hx Tobacco Use: No Smoking Status: Never smoker FmHx Family History: No diabetes, No coronary disease, No other Physical Exam Vitals Vital Signs Date Temp Pulse Resp B/P (MAP) Pulse Ox O2 O2 Flow FiO2 Time Delivery Rate 07/26/18 98.8 74 20 127/74 99 Room Air 21:25 (91) 07/26/18 99.0 104 20 138/82 98 18:51 (100) Physical Exam Const: No acute distress Head: Atraumatic Eyes: Normal Conjunctiva ENT: Normal External Ears, Nose and Mouth. Neck: Full range of motion. No meningismus. Resp: Clear to auscultation bilaterally Cardio: Regular rate and rhythm, no murmurs Abd: Soft, non tender, non distended. Normal bowel sounds Skin: No petechiae or rashes Back: No midline or flank tenderness Ext: No cyanosis, or edema Neur: Awake and alert Psych: Normal Mood and Affect Lower Extremity - bilateral: Skin: No laceration Compartments: Soft Motor: Limited flexion extension of right ankle. Full range of motion of toes bilaterally. Sensation: Intact to light touch FDWS/MF/LF/P surfaces. Bones: Tenderness to palpation of the lateral right malleolus with associated edema. There is no underlying bony deformity or ecchymosis. Overlying skin is intact. Joints: No effusion or laxity Pulses/Perfusion: 2+ DP, Capillary refill < 2 seconds Results 24 hrs Laboratory Tests Test 07/26/18 20:14 POC Beta HCG, Qualitative NEGATIVE Current Medications Medications Dose Sig/Naresh Start Time Status Last (Trade) Ordered Route PRN Stop Time Admin Dose Reason Admin Ibuprofen 600 mg ONCE ONCE 07/26/18 DC (Motrin) PO 21:30 07/26/18 21:30 Procedures/MDM DIAGNOSTIC IMAGING REPORT Patient: KARLOS WERNER : 1965 Age: 52 Sex: F MR #: [id number] DOS: 07/26/181954 Ordering MD: JAVED JOHNSTON Location: [facility] Room/Bed: PROCEDURE: XR Ankle. CLINICAL INDICATION: 52 years of age, female. Pain. Trauma. TECHNIQUE: Three views of the right ankle. COMPARISON: None available. FINDINGS: No acute fracture or dislocation is identified. There is a suspected old osteochondral lesion of the lateral talar dome with focal flattening of the articular surface and a subchondral lucency measuring 0.5 cm. Normal alignment on this non-stressed view. There is an unfused os trigonum at the posterior aspect of the talus. Small bone spur at the base of the calcaneus. Negative for significant soft tissue swelling. Additional comment: None. IMPRESSION: 1. Negative for evidence of acute fracture or dislocation of the right ankle. 2. 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 RPTAT: HCTS Physician Rik Date Time Electronically viewed and signed by Nicole Bliss Physician on 07/26/2018 20:29 CS/ CC: JAVED JOHNSTON [id number] DIAGNOSTIC IMAGING REPORT Patient: KARLOS WERNER : 1965 Age: 52 Sex: F MR #: [id number] DOS: 07/26/181954 Ordering MD: JAVED JOHNSTON Location: [facility] Room/Bed: PROCEDURE: XR Foot. CLINICAL INDICATION: 52 years of age, female. Pain. Trauma. TECHNIQUE: Three views of the right foot. COMPARISON: None available. FINDINGS: Negative for evidence of acute fracture. Normal alignment on this non-weight bearing view. Unfused os trigonum at the posterior aspect of the talus. Small bone spur at the base of the calcaneus. Negative for significant soft tissue swelling. Additional comment: None. IMPRESSION: Negative for evidence of acute fracture or dislocation of the right foot. RPTAT: HCTS Physician Rik Date Time Electronically viewed and signed by Nicole Bliss Physician on 07/26/2018 20:30 CS/ CC: JAVED JOHNSTON [id number] MDM: X-rays were performed results within normal limits. Patient was given Shekhar wrap in the ER as well as crutches and an orthotic boot. Patient advised to follow-up with orthopedist to rule out ligament or tendon tear. Splint Assessment: Neurovascularly intact post splint placement with good fit. I have low suspicion for neurovascular compromise, compartment syndrome, fracture, osteomyelitis, septic joint, or other emergent condition. Patient discharged with strict ER precautions. Patient advised to follow up with PMD. All questions answered at discharge. Departure Diagnosis: Primary Impression: Ankle injury Encounter type: initial encounter Laterality: right Qualified Codes: S99.911A - Unspecified injury of right ankle, initial encounter Additional Impression: Ankle pain Chronicity: acute Laterality: right Qualified Codes: M25.571 - Pain in right ankle and joints of right foot Condition: Stable Patient Instructions: What Are Ankle Sprains?, Treating Ankle Sprains, Sprain, Ankle, With X-Ray Referrals: [facility] Hours: Mon-Fri 9:00 AM - 5:00 PM Additional Instructions: Please follow-up with an orthopedist. Return to this facility if you are not improving as expected. JAVED JOHNSTON Jul 27, 2018 00:01
== END 2018-07-26 21:25 | disposition home or self-care (01) ==
LOC: FTE 18:45
DX: S99.911A Unspecified injury of right ankle, initial encounter (principal); I10 Essential (primary) hypertension; W22.8XXA Striking against or struck by other objects, initial encounter; Y92.9 Unspecified place or not applicable
CPT/HCPCS: 73610; 73630; 81025; L4386; Z7502